=== PATIENT | female | born 1940 | race Caucasian/White ===

== ENCOUNTER 2023-11-15 10:34 | Emergency (ER) | payer MEDICARE, OTHER, SELFPAY ==
[2023-11-15] VITALS (10 sets, daily range): BP systolic 131–164; BP diastolic 42–111; BMI 19.1
[2023-11-15 11:16] LABS: % Basophils 0.8 % (0-2); % Eosinophils 2.9 % (0-6); % Immature Granulocytes 0.4 % (0-0.5); % Lymphocytes 29.1 % (20.5-51.1); % Monocytes 10.1 % (1.7-9.3); % Neutrophils 56.7 % (42.2-75.2); Absolute Eosinophils 0.1 10^3/uL (0-0.7); Absolute Lymphocytes 1.4 10^3/uL (1.2-3.4); Absolute Monocytes 0.5 10^3/uL (0.1-0.6); Absolute Neutrophils 2.7 10^3/uL (1.4-6.5); Hematocrit 32.7 % (37.0-47.0); Hemoglobin 10.8 g/dL (12.0-16.0); Mean Corpuscular Hgb 28.1 pg (27.0-31.0); Mean Corpuscular Volume 85.2 fL (81.0-99.0); Nucleated Red Blood Cells % 0 %; Platelet Count 183 10^3/uL (130-400); Red Blood Cell Count 3.84 10^6/uL (4.20-5.40); Red Cell Dist. Width 14.6 % (11.5-14.5); White Blood Cell Count 4.8 10^3/uL (4.8-10.8)
[2023-11-15 11:28] LABS: ALT (SGPT) 10 U/L (0-35); AST (SGOT) 21 U/L (14-36); Albumin 3.8 g/dl (3.5-5.0); Alkaline Phosphatase 103 U/L (38-126); Blood Urea Nitrogen 22 mg/dl (7-17); Calcium 9.7 mg/dl (8.4-10.2); Carbon Dioxide 23 mmol/L (22-30); Chloride 110 mmol/L (98-107); Estimated Creatinine Clearance 23 ml/min; Glucose 99 mg/dl (70-99); Potassium 4.5 mmol/L (3.5-5.1); Sodium 138 mmol/L (135-145); Total Bilirubin 0.5 mg/dl (0.2-1.3); Total Protein 6.4 g/dl (6.3-8.2); eGFR 34.36
[2023-11-15 12:14] LABS: Lipase 71 U/L (23-300)
[2023-11-15] MEDS: OMNIPAQUE 50 ML PO (12:19)
[2023-11-15] MEDS: NSS 250 IV (12:20)
[2023-11-15] MEDS: BENADRYL 50 MG IV (12:46)
[2023-11-15] MEDS: DECADRON 10 MG IV (12:46)
--- NOTE | 2023-11-15 12:47 | EDRN ---
the pt pressed the armando jeffery and this RN entered the pts room, the pt appeared to be anxious and hyperventilating, the pt stated to this RN, 'I think i am having a reaction to the oral contrast, i don't feel right i can't breathe', the pts Sp02 was
98% on 3L NC that the pt is normally on, this RN notified Ed Filippo CRANE and medications were administered per the providers orders, the pt continues to hyperventilate with stable vital signs and states that she, 'Feels awful', this RN will stay at
the pts bedside and will continue to monitor the pt closely
[2023-11-15] MEDS: ATIVAN 0.5 MG IV (12:51)
--- NOTE | 2023-11-15 12:53 | EDRN ---
Ativan 0.5mg IV administered to the pt per Ed Filippo CRANE's orders
--- NOTE | 2023-11-15 13:06 | EDRN ---
the pt still appears anxious however has stopped hyperventilating, no obvious signs of allergic reaction present, no itching, rash, etc. the pt is currently in NSR in the 70's, last BP 149/111 (124), th pt is currently still on 3L NC Sp02 99%, will
continue to monitor the pt closely
[2023-11-15 13:55] LABS: Urine Albumin Trace (Neg - Trace); Urine Bilirubin Negative (Negative); Urine Character Clear (Clear); Urine Color Yellow; Urine Glucose Negative (Negative); Urine Ketone Negative (Negative); Urine Leukocyte Trace (Negative); Urine Nitrite Negative (Negative); Urine Occult Blood Negative (Negative); Urine Urobilinogen Negative (Neg - 1+)
--- NOTE | 2023-11-15 14:37 | EDRN ---
the pt is resting in stretcher in the lowest position, side rails up x2, call jeffery within reach, HOB elevated, VS WNL, no c/o chest pain, no c/o SOB, the pt is in NSR in the 70's, currently still on 3L NC Sp02 98%, no s/s of distress, the pt is calm
and cooperative with staff, will continue to monitor the pt closely
[2023-11-15 14:38] LABS: Urine Bacteria Many (Negative); Urine Red Blood Cell 0-2 /HPF (0-2); Urine Squamous Cell 0-2 /LPF (Few)
--- NOTE | 2023-11-15 15:48 | ED.GENMED ---
History of Present Illness
General
Chief Complaint: Abdominal Pain
Source: patient and spouse
Exam Limitations: none
Time Seen by Provider: 11/15/23 10:42
Nursing documentation reviewed up to this point in time: agreed with
Travel History
Have you had any contact with someone who has COVID-19?: No
Do you have any symptoms of coronavirus? Fever > 100 degrees, chills, cough, shortness of breath, sore throat, loss of taste or smell, muscle aches, or headache?: No
History of Present Illness
History of Present Illness:
83-year-old female with past ministry of previous lung cancer hypertension hypothyroidism presenting to the emergency department today with concerns of lower abdominal pain that wraps to her flank throughout the morning today no associated nausea
vomiting diarrhea denies chest pain shortness of breath fevers
Past History
Past History
ED Past Medical History: Cancer (Lung) and Hypothyroidism
ED Past Surgical History: Appendectomy, Cholecystectomy, Gynecological and Other (Right lung resection)
Patient has exhibited threatening behavior?: No
PSI?: No
Social History
Tobacco: Former smoker
Alcohol: Occasional
Drug: None
Personal:
Living: with family
Employment: Retired
Family History
Family History: Other (Noncontributory)
Review of Systems
Review of Systems
Allergies reviewed?: Yes
All Other Systems: ROS reviewed and negative except as documented in HPI and ROS
Phy Exam
Physical Exam
Physical Exam:
GENERAL: Alert , in no apparent distress
EYE: pupils equal and reactive
NECK: Supple, no significant adenopathy.
ENT: o/p clr, mmm.
CARDIAC: Regular rate and rhythm .
LUNGS: Clear breath sounds bilaterally, no acute respiratory distress, no wheezes/rales/rhonchi
ABDOMEN: Mild abdominal pain throughout the lower abdomen in the right mid abdomen. No guarding no peritoneal signs
NEUROLOGICAL: Alert and oriented, no focal neuro deficits
SKIN: Warm and dry, skin intact.
MUSCULOSKELETAL: No edema, well perfused.
PSYCH: Normal and appropriate interaction.
Course
Orders/Labs/Results
Orders:
Orders
11/15/23 10:41
Electrocardiogram (*1) Urgent
Reason for Study: Abdominal Pain
EKG- Treatment ONCE
11/15/23 11:03
Complete Blood Count/With Diff Urgent
Comprehensive Metabolic Panel Urgent
Lipase Urgent
Urinalysis Reflex To Culture Urgent
Date Specimen was Collected: 11/15/23
Time Specimen was Collected: 11:00
Urine Microscopic Reflex Cult Urgent
Urine Culture Urgent
MASON Source: U
Specimen Description:
Date Specimen was Collected: 11/15/23
Time Specimen was Collected: 11:00
11/15/23 11:48
0.9% Sodium Chloride 250 ml [Nss] 250 ml IV BOLUS
11/15/23 12:02
CT Abd/pel (oral only)-DH Only Urgent
Comment:
Reason For Exam: iodine allergy doesnt want contrast
Iohexol [Omnipaque] See Protocol PO NOW STA
11/15/23 12:39
Dexamethasone Sod Phosphate [Decadron] 10 mg IV NOW STA
Diphenhydramine [Benadryl] 50 mg IV NOW STA
11/15/23 12:50
Lorazepam [Ativan] 0.5 mg IV NOW STA
Lorazepam [Ativan] 2 mg .ROUTE .STK-MED ONE
Abnormal Lab Results
11/15/23
11:03
RBC 3.84 L 10^6/uL
(4.20-5.40)
Hgb 10.8 L g/dL
(12.0-16.0)
Hct 32.7 L %
(37.0-47.0)
RDW 14.6 H %
(11.5-14.5)
Monocytes % 10.1 H %
(1.7-9.3)
Chloride 110 H mmol/L
(98-107)
BUN 22 H mg/dl
(7-17)
Creatinine 1.5 H mg/dL
(0.6-1.0)
Leukocyte Esterase Rfl Trace A
(Negative)
Urine Bacteria (Reflex) Many A
(Negative)
11/15/23 11:03
11/15/23 11:03
Vital Signs
Initial and Last Documented VS:
Initial Vital Signs
Temp Pulse Resp BP Pulse Ox
98.1 F 66 20 164/66 97
11/15/23 10:35 11/15/23 10:35 11/15/23 10:35 11/15/23 10:35 11/15/23 10:35
Last Documented Vital Signs
Temp Pulse Resp BP Pulse Ox
97.9 F 79 21 131/50 97
11/15/23 14:32 11/15/23 15:15 11/15/23 15:15 11/15/23 14:32 11/15/23 14:45
MDM/Problems Addressed
MDM/Problems Addressed:
83-year-old female presenting to the emergency department today with concerns of lower abdominal pain and right-sided abdominal pain throughout the day today somewhat improving prior to arrival she claims initial blood pressure elevated but
improving without specific treatment. Remainder vital signs normal. Labs unremarkable creatinine at baseline urinalysis no signs of infection CT scan without emergent findings patient generally well-appearing claims that symptoms are significant
improved throughout ER stay. Patient appears stable for outpatient follow-up with GI return precautions given.
*Critical Care Note
Total Time (30-74mins, 75-104mins- exclusive of procedures): Not Applicable
ED Attending Note
-
Portions of this chart may have been created with voice recognition software.� Occasional wrong word or��sound alike� substitutions may have occurred due to the inherent limitations of voice recognition software.
Discharge Plan
Departure
Patient Disposition: Home (Routine Discharge)
Date of Disposition: 11/15/23
Time of Disposition: 15:50
Patient with high blood pressure during this ER visit?: No
Condition: Good
Covid-19: Not Applicable
Discharge Problem:
Abdominal pain
Instructions: Abdominal Pain
Prescriptions:
No Action
ascorbic acid (vitamin C) [Vitamin C] 1,000 MG tablet
1,000 mg PO DAILY
albuterol sulfate [Proventil HFA] 90 MCG/PUFF HFA aerosol inhaler
1 puff inhalation R BIDPRN PRN (Reason: sob)
Caltrate 600 plus D 1 EACH tablet,chewable
1 ea PO DAILY
amlodipine [Norvasc] 5 mg Tablet
5 mg PO DAILY
zolpidem [Ambien] 5 mg Tablet
5 mg PO HSPRN PRN (Reason: sleeping)
Patient Comments:
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
trazodone 50 mg tablet
50 mg PO HS
levothyroxine [Synthroid] 25 mcg Tablet
25 mcg PO DAILY
Brilinta 90 mg Tablet
90 mg PO BID Qty: 60 11RF
atorvastatin 40 mg Tablet
40 mg PO QPM Qty: 30 11RF
aspirin 81 mg Tablet,Chewable
81 mg PO DAILY Qty: 30 11RF
metoprolol succinate 25 mg Tablet Extended Release 24 Hr
25 mg PO DAILY Qty: 30 11RF
Referrals:
Millie Virk DO [Family Provider] -
Kayy Gupta MD [Active] - Follow up in 5-7 days
Activity Restrictions/Additional Instructions:
You came to the emergency department today with concerns of recurrent abdominal pain. Here you to reassuring evaluation but you should follow-up closely with GI within 1 to 2 weeks. Return to the emergency department for any worsening, new or
concerning symptoms.
Interventions
Interventions:
*Risk Screen - Suicide Last Done: 11/15/23 11:10
*General Assessment Last Done: 11/15/23 11:10
*Neglect/Abuse Screening Last Done: 11/15/23 11:10
ED- Fall Risk Assessment Last Done: 11/15/23 11:10
*ED COVID-19 Vaccine History Last Done: 11/15/23 11:10
WC-Mxjwgy-Wsgeeqzjvz Assessment Last Done: 11/15/23 11:10
Discharge Date and Time
Print Language: INDONESIAN
== END 2023-11-15 16:04 | disposition home or self-care (01) ==
LOC: EMR 10:34
PROVIDERS: Physician Assistant; EMERGENCY PHYSICIAN Emergency Medicine; FAMILY PHYSICIAN Internal Medicine
DX: R10.30 Lower abdominal pain, unspecified (principal); I10 Essential (primary) hypertension; E03.9 Hypothyroidism, unspecified; Z87.891 Personal history of nicotine dependence
CPT/HCPCS: 99285; 96374; 96375 ×2; 74176; 80053; 81003; 81015; 83690; 85025; 87077; 87086; 87186; 93005

== ENCOUNTER 2024-02-20 10:24 | Emergency (ER) | payer MEDICARE, OTHER, SELFPAY ==
[2024-02-20 10:37] VITALS: BP 116/74
--- NOTE | 2024-02-20 11:37 | ED.GENMED ---
History of Present Illness
General
Chief Complaint: Back Pain
Time Seen by Provider: 02/20/24 11:24
History of Present Illness
History of Present Illness:
83-year-old female with history of COPD, lung cancer status post lobectomy, and chronic oxygen dependence presents to the emergency department for evaluation of bilateral flank pain and dysuria for the past week and a half. She was seen in urgent
care earlier this week and prescribed nitrofurantoin however her symptoms did not change. No fevers, chills, sweats, nausea, vomiting, or diarrhea. Pain is primarily in the mid back/kidney area but does occasionally radiate anteriorly.
Past History
Past History
ED Past Medical History: Cancer (Lung) and Hypothyroidism
ED Past Surgical History: Appendectomy, Cholecystectomy, Gynecological and Other (Right lung resection)
Patient has exhibited threatening behavior?: No
PSI?: No
Social History
Tobacco: Former smoker
Alcohol: Occasional
Drug: None
Personal:
Living: with family
Employment: Retired
Family History
Family History: Other (Noncontributory)
Review of Systems
Review of Systems
Allergies reviewed?: Yes
All Other Systems: ROS reviewed and negative except as documented in HPI and ROS
Phy Exam
Physical Exam
Physical Exam:
GEN: Well appearing, NAD, WDWN
Eyes: PERRLA, EOMs intact, no scleral icterus
HENT: NCAT, oral mucosa moist
Lungs: CTAB, no wheezes, rales, rhonchi, normal chest wall excursion
Cardiac: RRR, no M/R/G, no peripheral edema. Radial pulses 2+ bilat
Abdomen: Diffusely soft however tender to the lower abdomen diffusely, positive CVA tenderness bilaterally
Neuro: AO x 3
MSK: No gross deformity or ecchymosis. No edema. No digital clubbing
Skin: No rashes, petechiae. Normal color, no pallor or jaundice.
Psych: Calm, cooperative, proper hygiene
Course
Orders/Labs/Results
Orders:
Orders
02/20/24 11:36
Straight cath- Treatment ONCE
02/20/24 11:39
Complete Blood Count/With Diff Urgent
Comprehensive Metabolic Panel Urgent
02/20/24 11:50
Urinalysis Reflex To Culture Urgent
Date Specimen was Collected: 02/20/24
Time Specimen was Collected: 11:49
Urine Microscopic Reflex Cult Urgent
Urine Culture Urgent
MASON Source: U
Specimen Description:
Date Specimen was Collected: 02/20/24
Time Specimen was Collected: 11:49
02/20/24 12:26
CT Abd/pelvis Wo Iv Cont Urgent
Reason For Exam: bilat flank pain
Abnormal Lab Results
02/20/24 02/20/24
11:39 11:50
RBC 3.87 L 10^6/uL
(4.20-5.40)
Hgb 10.7 L g/dL
(12.0-16.0)
Hct 32.2 L %
(37.0-47.0)
RDW 15.0 H %
(11.5-14.5)
Absolute Monos (auto) 0.7 H 10^3/uL
(0.1-0.6)
Monocytes % 11.0 H %
(1.7-9.3)
Chloride 110 H mmol/L
(98-107)
BUN 26 H mg/dl
(7-17)
Creatinine 1.4 H mg/dL
(0.6-1.0)
Glucose 107 H mg/dl
(70-99)
Total Protein 6.1 L g/dl
(6.3-8.2)
Urine Nitrite (Reflex) Positive A
(Negative)
Urine Bilirubin 2+ A
(Negative)
Urine Urobilinogen 2+ A
(Neg - 1+)
Urine Bacteria (Reflex) Few A
(Negative)
02/20/24 11:39
02/20/24 11:39
Vital Signs
Initial and Last Documented VS:
Initial Vital Signs
Temp Pulse Resp BP Pulse Ox
98.0 F 59 16 116/74 96
02/20/24 10:37 02/20/24 10:37 02/20/24 10:37 02/20/24 10:37 02/20/24 10:37
Last Documented Vital Signs
Temp Pulse Resp BP Pulse Ox
98.0 F 71 23 134/64 97
02/20/24 10:37 02/20/24 13:30 02/20/24 13:30 02/20/24 13:28 02/20/24 13:30
MDM/Problems Addressed
MDM/Problems Addressed:
8-year-old female presents with bilateral back pain. She does have reproducible tenderness to the abdomen on exam thus prompting imaging to be obtained. Labs and imaging are grossly unremarkable. Urinalysis is not consistent with UTI however will
send for culture for completeness. Overall it is unclear what is causing patient's pain, may be an exacerbation of chronic pain versus musculoskeletal etiology. Will provide short course of analgesics and recommend PCP/pain f/u
*Critical Care Note
Total Time (30-74mins, 75-104mins- exclusive of procedures): Not Applicable
ED Attending Note
-
Portions of this chart may have been created with voice recognition software.� Occasional wrong word or��sound alike� substitutions may have occurred due to the inherent limitations of voice recognition software.
Discharge Plan
Departure
Patient Disposition: Home (Routine Discharge)
Date of Disposition: 02/20/24
Time of Disposition: 13:25
Patient with high blood pressure during this ER visit?: No
Discharge Problem:
Back pain
Instructions: Low Back Pain (DC)
Prescriptions:
New
hydrocodone-acetaminophen 5-325 mg tablet
1 tab PO Q8H PRN (Reason: Pain) Qty: 10 0RF
docusate sodium [Stool Softener] 100 mg capsule
100 mg PO BID PRN (Reason: constipation) Qty: 20 0RF
No Action
ascorbic acid (vitamin C) [Vitamin C] 1,000 MG tablet
1,000 mg PO DAILY
albuterol sulfate [Proventil HFA] 90 MCG/PUFF HFA aerosol inhaler
1 puff inhalation R BIDPRN PRN (Reason: sob)
Caltrate 600 plus D 1 EACH tablet,chewable
1 ea PO DAILY
amlodipine [Norvasc] 5 mg Tablet
5 mg PO DAILY
zolpidem [Ambien] 5 mg Tablet
5 mg PO HSPRN PRN (Reason: sleeping)
Patient Comments:
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
trazodone 50 mg tablet
50 mg PO HS
levothyroxine [Synthroid] 25 mcg Tablet
25 mcg PO DAILY
Brilinta 90 mg Tablet
90 mg PO BID Qty: 60 11RF
atorvastatin 40 mg Tablet
40 mg PO QPM Qty: 30 11RF
aspirin 81 mg Tablet,Chewable
81 mg PO DAILY Qty: 30 11RF
metoprolol succinate 25 mg Tablet Extended Release 24 Hr
25 mg PO DAILY Qty: 30 11RF
Referrals:
Millie Virk DO [Family Provider] -
Activity Restrictions/Additional Instructions:
The cause of your pain is unclear at this time. Your urinalysis will be sent for a culture and if positive you will receive a phone call in 2 to 3 days
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
If you are using opiate pain medications please consider using stool softeners twice a day as well to avoid constipation
Interventions
Interventions:
*Risk Screen - Suicide Last Done: 02/20/24 11:29
*General Assessment Last Done: 02/20/24 11:29
*Neglect/Abuse Screening Last Done: 02/20/24 11:29
ED- Fall Risk Assessment Last Done: 02/20/24 13:42
*ED COVID-19 Vaccine History Last Done: 02/20/24 11:29
*Nursing Disposition Last Done: 02/20/24 13:42
ED-Musculoskeletal Assessment Last Done: 02/20/24 11:29
Discharge Date and Time
Discharge Date/Time: 02/20/24 13:49
Print Language: EMIRATI
[2024-02-20 11:53] LABS: % Basophils 0.6 % (0-2); % Eosinophils 3.2 % (0-6); % Immature Granulocytes 0.3 % (0-0.5); % Lymphocytes 25.6 % (20.5-51.1); % Neutrophils 59.3 % (42.2-75.2); Absolute Eosinophils 0.2 10^3/uL (0-0.7); Absolute Lymphocytes 1.6 10^3/uL (1.2-3.4); Absolute Monocytes 0.7 10^3/uL (0.1-0.6); Absolute Neutrophils 3.7 10^3/uL (1.4-6.5); Hematocrit 32.2 % (37.0-47.0); Hemoglobin 10.7 g/dL (12.0-16.0); Mean Corp Hgb Conc. 33.2 g/dL (33.0-37.0); Mean Corpuscular Hgb 27.6 pg (27.0-31.0); Mean Corpuscular Volume 83.2 fL (81.0-99.0); Mean Platelet Volume 9.8 fL (7.4-10.4); Nucleated Red Blood Cells % 0 %; Platelet Count 169 10^3/uL (130-400); Red Blood Cell Count 3.87 10^6/uL (4.20-5.40); White Blood Cell Count 6.2 10^3/uL (4.8-10.8)
[2024-02-20 11:59] LABS: Urine Albumin Negative (Neg - Trace); Urine Bilirubin 2+ (Negative); Urine Character Clear (Clear); Urine Color Yellow; Urine Glucose Negative (Negative); Urine Ketone Negative (Negative); Urine Leukocyte Negative (Negative); Urine Nitrite Positive (Negative); Urine Occult Blood Negative (Negative); Urine Specific Gravity 1.015 (<1.030); Urine Urobilinogen 2+ (Neg - 1+)
[2024-02-20 12:05] LABS: ALT (SGPT) 14 U/L (0-35); AST (SGOT) 30 U/L (14-36); Albumin 3.7 g/dl (3.5-5.0); Alkaline Phosphatase 104 U/L (38-126); Blood Urea Nitrogen 26 mg/dl (7-17); Calcium 9.8 mg/dl (8.4-10.2); Carbon Dioxide 24 mmol/L (22-30); Chloride 110 mmol/L (98-107); Glucose 107 mg/dl (70-99); Potassium 4.2 mmol/L (3.5-5.1); Sodium 140 mmol/L (135-145); Total Bilirubin 0.7 mg/dl (0.2-1.3); Total Protein 6.1 g/dl (6.3-8.2); eGFR 37.33
[2024-02-20 12:14] VITALS: BP 126/58
[2024-02-20 12:20] LABS: Urine Bacteria Few (Negative); Urine Red Blood Cell 0-2 /HPF (0-2)
[2024-02-20 13:28] VITALS: BP 134/64
== END 2024-02-20 13:49 | disposition home or self-care (01) ==
LOC: EMR 10:24
PROVIDERS: Physician Assistant; EMERGENCY PHYSICIAN Emergency Medicine; FAMILY PHYSICIAN Internal Medicine
DX: M54.9 Dorsalgia, unspecified (principal); J44.9 Chronic obstructive pulmonary disease, unspecified; E03.9 Hypothyroidism, unspecified; Z87.891 Personal history of nicotine dependence; Z90.49 Acquired absence of other specified parts of digestive tract; Z99.81 Dependence on supplemental oxygen
CPT/HCPCS: 99284; 74176; 80053; 81003; 81015; 85025; 87086

== ENCOUNTER 2024-07-10 16:00 | Inpatient (IN) | payer MEDICARE, OTHER, SELFPAY ==
[2024-07-10] VITALS (17 sets, daily range): BP systolic 78–105; BP diastolic 46–86; BMI 23.7; BMI 24.7
--- NOTE | 2024-07-10 11:15 | ED.GENMED ---
History of Present Illness
<Fransico Barkley Jr., PA-C - Last Filed: 07/10/24 14:37>
General
Chief Complaint: Breathing Problem
Source: patient and spouse
Exam Limitations: none
Time Seen by Provider: 07/10/24 11:07
Nursing documentation reviewed up to this point in time: agreed with
History of Present Illness
History of Present Illness:
83-year-old female presenting to the emergency department today with concerns of shortness of breath worsening since last night. She chronically is on oxygen for COPD and right-sided lobectomy in the past. Typically uses 3 L during the day but has
needed more this morning. Has been treated for UTI over the past few days with Bactrim. She denies any specific chest pain fevers nausea vomiting.
Past History
<Fransico Barkley Jr., PA-C - Last Filed: 07/10/24 14:37>
Past History
ED Past Medical History: Cancer (Lung) and Hypothyroidism
ED Past Surgical History: Appendectomy, Cholecystectomy, Gynecological and Other (Right lung resection)
Patient has exhibited threatening behavior?: No
PSI?: No
Social History
Tobacco: Former smoker
Alcohol: Occasional
Drug: None
Personal:
Living: with family
Employment: Retired
Family History
Family History: Other (Noncontributory)
Review of Systems
<CHAS Aviles Jr. Last Filed: 07/10/24 14:37>
Review of Systems
Allergies reviewed?: Yes
All Other Systems: ROS reviewed and negative except as documented in HPI and ROS
Phy Exam
<CHAS Aviles Jr. Last Filed: 07/10/24 14:37>
Physical Exam
Physical Exam:
GENERAL: Alert , in no apparent distress
EYE: pupils equal and reactive
NECK: Supple, no significant adenopathy.
ENT: o/p clr, mmm.
CARDIAC: Regular rate and rhythm .
LUNGS: Clear breath sounds bilaterally, no acute respiratory distress, no wheezes/rales/rhonchi
ABDOMEN: Soft, without focal tenderness, no r/g, no cvat
NEUROLOGICAL: Alert and oriented, no focal neuro deficits
SKIN: Warm and dry, skin intact.
MUSCULOSKELETAL: No edema, well perfused.
PSYCH: Normal and appropriate interaction.
Scores
<Fransico Barkley Jr., PA-C - Last Filed: 07/10/24 14:37>
Heart Failure Risk
Heart Failure Risk Score: Not Applicable
Course
<Fransico Barkley Jr., PA-C - Last Filed: 07/10/24 14:37>
Orders/Labs/Results
Orders:
Orders
07/10/24 11:12
Electrocardiogram (*1) Stat
Reason for Study: Other
Other Reason for Exam: pneumonia
EKG- Treatment ONCE
CR Chest - 2 Views Urgent
Comment:
Reason For Exam: sob
07/10/24 11:20
Complete Blood Count/With Diff Urgent
Comprehensive Metabolic Panel Urgent
D-Dimer Urgent
Lactic Acid Q4H
Comment: CANCEL 2nd LACTIC ACID IF 1st LACTIC ACID IS LESS THAN 2
NT-proBNP Urgent
Troponin I Urgent
07/10/24 12:59
Straight cath- Treatment ONCE
07/10/24 13:01
CT Abd/pel Without Iv Or Oral Urgent
Comment:
Reason For Exam: flank pain with dysuria
07/10/24 13:02
CefTRIAXone [Rocephin] 1,000 mg IV NOW STA
Dexamethasone Sod Phosphate [Decadron] 6 mg IV NOW STA
Ipratropium/Albuterol Sulfate [Duoneb] 3 ml INH R NOW ONE
07/10/24 13:55
Urinalysis Reflex To Culture Urgent
Date Specimen was Collected: 07/10/24
Time Specimen was Collected: 13:51
Urine Microscopic Reflex Cult Urgent
07/10/24 13:58
Sterile Water [Sterile Water For Injection] 10 ml .ROUTE .STK-MED ONE
07/10/24 15:15
Lactic Acid Q4H
Comment: CANCEL 2nd LACTIC ACID IF 1st LACTIC ACID IS LESS THAN 2
Abnormal Lab Results
07/10/24 07/10/24
11:20 13:55
RBC 3.22 L 10^6/uL
(4.20-5.40)
Hgb 8.5 L g/dL
(12.0-16.0)
Hct 27.4 L %
(37.0-47.0)
MCH 26.4 L pg
(27.0-31.0)
MCHC 31.0 L g/dL
(33.0-37.0)
RDW 15.0 H %
(11.5-14.5)
D-Dimer 0.61 H ug/mlFEU
(0.00-0.50)
Chloride 109 H mmol/L
(98-107)
Carbon Dioxide 20 L mmol/L
(22-30)
BUN 19 H mg/dl
(7-17)
Creatinine 1.4 H mg/dL
(0.6-1.0)
Glucose 171 H mg/dl
(70-99)
Lactic Acid 2.5 H mmol/L
(0.7-2.0)
Total Protein 5.9 L g/dl
(6.3-8.2)
Urine Bacteria (Reflex) Few A
(Negative)
Urine Albumin (Reflex) 1+ A
(Neg - Trace)
07/10/24 11:20
07/10/24 11:20
Vital Signs
Initial and Last Documented VS:
Initial Vital Signs
Temp Pulse Resp BP Pulse Ox
98.1 F 78 26 105/76 83
07/10/24 10:59 07/10/24 10:59 07/10/24 10:59 07/10/24 10:59 07/10/24 10:59
Last Documented Vital Signs
Temp Pulse Resp BP Pulse Ox
98.1 F 67 26 102/63 98
07/10/24 10:59 07/10/24 13:15 07/10/24 13:15 07/10/24 13:00 07/10/24 13:15
<Riley Otero MD - Last Filed: 07/10/24 13:21>
Orders/Labs/Results
Orders:
Orders
07/10/24 11:12
Electrocardiogram (*1) Stat
Reason for Study: Other
Other Reason for Exam: pneumonia
EKG- Treatment ONCE
CR Chest - 2 Views Urgent
Comment:
Reason For Exam: sob
07/10/24 11:20
Complete Blood Count/With Diff Urgent
Comprehensive Metabolic Panel Urgent
D-Dimer Urgent
Lactic Acid Q4H
Comment: CANCEL 2nd LACTIC ACID IF 1st LACTIC ACID IS LESS THAN 2
NT-proBNP Urgent
Troponin I Urgent
07/10/24 12:59
Straight cath- Treatment ONCE
07/10/24 13:01
CT Abd/pel Without Iv Or Oral Urgent
Comment:
Reason For Exam: flank pain with dysuria
07/10/24 13:02
CefTRIAXone [Rocephin] 1,000 mg IV NOW STA
Dexamethasone Sod Phosphate [Decadron] 6 mg IV NOW STA
Ipratropium/Albuterol Sulfate [Duoneb] 3 ml INH R NOW ONE
07/10/24 13:55
Urinalysis Reflex To Culture Urgent
Date Specimen was Collected: 07/10/24
Time Specimen was Collected: 13:51
Urine Microscopic Reflex Cult Urgent
07/10/24 13:58
Sterile Water [Sterile Water For Injection] 10 ml .ROUTE .STK-MED ONE
07/10/24 15:15
Lactic Acid Q4H
Comment: CANCEL 2nd LACTIC ACID IF 1st LACTIC ACID IS LESS THAN 2
Abnormal Lab Results
07/10/24 07/10/24
11:20 13:55
RBC 3.22 L 10^6/uL
(4.20-5.40)
Hgb 8.5 L g/dL
(12.0-16.0)
Hct 27.4 L %
(37.0-47.0)
MCH 26.4 L pg
(27.0-31.0)
MCHC 31.0 L g/dL
(33.0-37.0)
RDW 15.0 H %
(11.5-14.5)
D-Dimer 0.61 H ug/mlFEU
(0.00-0.50)
Chloride 109 H mmol/L
(98-107)
Carbon Dioxide 20 L mmol/L
(22-30)
BUN 19 H mg/dl
(7-17)
Creatinine 1.4 H mg/dL
(0.6-1.0)
Glucose 171 H mg/dl
(70-99)
Lactic Acid 2.5 H mmol/L
(0.7-2.0)
Total Protein 5.9 L g/dl
(6.3-8.2)
Urine Bacteria (Reflex) Few A
(Negative)
Urine Albumin (Reflex) 1+ A
(Neg - Trace)
07/10/24 11:20
07/10/24 11:20
Vital Signs
Initial and Last Documented VS:
Initial Vital Signs
Temp Pulse Resp BP Pulse Ox
98.1 F 78 26 105/76 83
07/10/24 10:59 07/10/24 10:59 07/10/24 10:59 07/10/24 10:59 07/10/24 10:59
Last Documented Vital Signs
Temp Pulse Resp BP Pulse Ox
98.1 F 67 26 102/63 98
07/10/24 10:59 07/10/24 13:15 07/10/24 13:15 07/10/24 13:00 07/10/24 13:15
<Fransico Barkley Jr., PA-C - Last Filed: 07/10/24 14:37>
MDM/Problems Addressed
MDM/Problems Addressed:
83-year-old female presenting to the emergency department today with concerns of shortness of breath worsening since last night. Denies additional symptoms otherwise no fevers no recent illness no chest pain. Initial pulse ox on 3 L in the mid 80s
improving to the mid 90s with 6 L nasal cannula. Lungs are clear heart sounds are normal denies any chest pain. He does have some reproducible pain to her lower abdomen concerning a CT scan was obtained did not show any emergent findings does show
some pulmonary edema. Urinalysis was also obtained and did not show any evidence of current UTI. Otherwise hemoglobin of 8.5 baseline seems to be around 10 no bleeding guaiac negative on rectal examination. Decreasing level could be delusional.
Cardiology was consulted and saw the patient in the ER in reference to possible heart failure in the setting of pulmonary edema and elevated BNP. Plan to admit for further treatment and monitoring.
<Fransico Barkley Jr., PA-C - Last Filed: 07/10/24 14:37>
*Critical Care Note
Total Time (30-74mins, 75-104mins- exclusive of procedures): Not Applicable
ED Attending Note
<Fransico Barkley Jr., PA-C - Last Filed: 07/10/24 14:37>
-
Portions of this chart may have been created with voice recognition software.� Occasional wrong word or��sound alike� substitutions may have occurred due to the inherent limitations of voice recognition software.
<Riley Otero MD - Last Filed: 07/10/24 13:21>
ED Attending Note
Patient seen and examined by attending physician: Yes
ED Attending Note:
Patient with history of oxygen dependent COPD on 3 L oxygen via nasal cannula, presents to ED secondary to sudden onset of shortness of breath starting yesterday afternoon, worse with exertion. In addition, patient has noted dysuria over the past 2
days. Patient performed home test purchased at local pharmacy, which was positive for urinary tract infection. Spoke with primary care physician who started patient on Bactrim last night. Patient has taken 2 doses of Bactrim. In addition,
patient has had ongoing abdominal pain associated constipation. Has taken stool softener and laxative with mild improvement. Denies nausea, vomiting, or diarrhea. Denies coughing. Denies sore throat. Denies fever or chills. Denies chest pain.
Patient's past medical history is significant for 'small heart attack' last year, receiving 1 cardiac stent at [facility]. At that time, patient did experience chest pain and EKG confirmed heart attack. Denies recent travel or surgery.
Denies leg pain or swelling. Denies recent change in medications or diet.
Physical Exam
General: mild distress, not acutely ill. afebrile. weak and pale appearing.
Head: nc/at. eomi
Neck: supple. normal range of motion.
Heart: s1/s2 regular rate and rhythm, no murmur. equal radial pulses.
Lungs: mild respiratory distress. diminished breath sounds bilaterally
Abdomen: normal bowel sounds. mild diffuse tenderness to palpation.
Neuro: alert and oriented x 3. no focal neurological deficits
Skin: no rash
Psychiatric: well kept. interactive and cooperative
Extremities: no edema. no calf tenderness.
Patient's presenting hypoxia, likely multifactorial. Blood work does reveal anemia, of unknown etiology at this time, with heme negative stool, along with elevated proBNP level and chest x-ray consistent with potential vascular congestion. However
clinically patient does not appear to be volume overloaded. With potential UTI and hypotension noted in ED, clinical suspicion for potential infectious etiology driving patient's symptoms along with exacerbation of underlying COPD, may be the
likely culprit. However in light of patient's complicated presentation along with hypotension, will reach out to cardiology service for ED consultation and recommendation, in regards to patient's volume status.
Echocardiogram 2022 showed normal EF at that time.
Discharge Plan
Departure
Patient Disposition: Admit
Date of Disposition: 07/10/24
Time of Disposition: 14:37
Admit to: Telemetry
Admit to doctor: Htay
Presentation/result/management discussed w/ accepting MD/DO: Hospitalist
Patient with high blood pressure during this ER visit?: No
Condition: Good
Covid-19: Not Applicable
Discharge Problem:
Hypoxemia, Heart failure
Prescriptions:
No Action
ascorbic acid (vitamin C) [Vitamin C] 1,000 MG tablet
1,000 mg PO DAILY
albuterol sulfate [Proventil HFA] 90 MCG/PUFF HFA aerosol inhaler
1 puff inhalation R BIDPRN PRN (Reason: sob)
Caltrate 600 plus D 1 EACH tablet,chewable
1 ea PO DAILY
amlodipine [Norvasc] 5 mg Tablet
5 mg PO DAILY
zolpidem [Ambien] 5 mg Tablet
5 mg PO HSPRN PRN (Reason: sleeping)
Patient Comments:
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
trazodone 50 mg tablet
50 mg PO HS
levothyroxine [Synthroid] 25 mcg Tablet
25 mcg PO DAILY
Brilinta 90 mg Tablet
90 mg PO BID Qty: 60 11RF
atorvastatin 40 mg Tablet
40 mg PO QPM Qty: 30 11RF
aspirin 81 mg Tablet,Chewable
81 mg PO DAILY Qty: 30 11RF
metoprolol succinate 25 mg Tablet Extended Release 24 Hr
25 mg PO DAILY Qty: 30 11RF
hydrocodone-acetaminophen 5-325 mg tablet
1 tab PO Q8H PRN (Reason: Pain) Qty: 10 0RF
docusate sodium [Stool Softener] 100 mg capsule
100 mg PO BID PRN (Reason: constipation) Qty: 20 0RF
Referrals:
Millie Virk DO [Family Provider] -
Interventions
Interventions:
*Risk Screen - Suicide Last Done: 07/10/24 10:59
*General Assessment Last Done: 07/10/24 10:59
*Neglect/Abuse Screening Last Done: 07/10/24 10:59
ED- Cardiac Assessment Last Done: 07/10/24 11:50
ED- Pulmonary Assessment Last Done: 07/10/24 11:50
Discharge Date and Time
Print Language: SOLOM[place] ISLANDER
[2024-07-10 11:31] LABS: % Basophils 0.4 % (0-2); % Eosinophils 2.5 % (0-6); % Immature Granulocytes 0.2 % (0-0.5); % Monocytes 9.3 % (1.7-9.3); % Neutrophils 62.6 % (42.2-75.2); Absolute Eosinophils 0.1 10^3/uL (0-0.7); Absolute Lymphocytes 1.3 10^3/uL (1.2-3.4); Absolute Monocytes 0.5 10^3/uL (0.1-0.6); Absolute Neutrophils 3.2 10^3/uL (1.4-6.5); Hematocrit 27.4 % (37.0-47.0); Hemoglobin 8.5 g/dL (12.0-16.0); Mean Corpuscular Hgb 26.4 pg (27.0-31.0); Mean Corpuscular Volume 85.1 fL (81.0-99.0); Mean Platelet Volume 9.3 fL (7.4-10.4); Nucleated Red Blood Cells % 0 %; Platelet Count 166 10^3/uL (130-400); Red Blood Cell Count 3.22 10^6/uL (4.20-5.40); White Blood Cell Count 5.2 10^3/uL (4.8-10.8)
[2024-07-10 11:42] LABS: Lactic Acid 2.5 mmol/L (0.7-2.0)
[2024-07-10 11:50] LABS: ALT (SGPT) 10 U/L (0-35); AST (SGOT) 16 U/L (14-36); Albumin 3.5 g/dl (3.5-5.0); Alkaline Phosphatase 79 U/L (38-126); Blood Urea Nitrogen 19 mg/dl (7-17); Calcium 9.3 mg/dl (8.4-10.2); Carbon Dioxide 20 mmol/L (22-30); Chloride 109 mmol/L (98-107); Glucose 171 mg/dl (70-99); Potassium 4.1 mmol/L (3.5-5.1); Sodium 139 mmol/L (135-145); Total Bilirubin 0.4 mg/dl (0.2-1.3); Total Protein 5.9 g/dl (6.3-8.2); eGFR 37.33
[2024-07-10 11:52] LABS: D-Dimer 0.61 ug/mlFEU (0.00-0.50)
[2024-07-10 11:56] LABS: NT-proBNP 2790 pg/ml; Troponin I < 0.012 ng/ml
--- NOTE | 2024-07-10 13:53 | CON.CAR ---
Addendum entered and electronically signed by Lavon Morton MD 07/10/24 18:03:
I saw and examined the patient.
The Full Stack Web Developer's note was reviewed and I agree with the note.
Comment:
GEN: No distress, awake, Ox3
HEENT: supple, anicteric, mmm
LUNGS: scatt rhonchi
CV: Reg, S1/S2, 07/24 syst LSB, no gallop
ABD: soft, BS+, NT/ND
EXT: +1 edema
NEURO: Gross non-focal
SKIN: No rash
Plan:
She has PMH of CAD/NSTEMI, s/p RCA/LCx MING 08/10, HTN, COPD, hypothyroid, PAD, presents with progressive shortness of breath over past several days. She also has recent UTI treated with Bactrim, she then had progressive hypoxemia with pulse ox in the
80s on 3L oxygen. pro-BNP 2790. CT scan with bilateral pleural effusions with pulm edema and possible vascular congestion/pneumonitis. Pt very poor historian. + mild orthopnea/PND.
Rec treatment for both COPD and acute HF with preserved LVEF.
Treat with steroids/nebulizers/Antibiotics
Would start Edecrin 25mg daily. and follow. ?sulfa allergy. Creat at 1.4.
will check repeat Echo.
Cont Toprol, and Plavix. Hold Norvasc with hypotension.
Cont Med Rx for CAD/PAD.
Original Note:
Consultation
Consultation Request
Date/Time Consultation Requested: 07/10/2024
Date/Time Consultation Performed: 07/10/2024
Requesting Provider: Fransico Barkley PA-C
Performing Provider: Rosanna Maravilla PA-C for Dr. Morton
Reason for Consultation: Shortness of breath
Medical History
-
Chief Complaint: chest and arm pain
History of Present Illness:
Lelo has a history of lung cancer status post lobectomy followed at [facility] 2013 in remission, COPD on chronic supplemental oxygen, hypothyroidism, CKD, htn and CAD s/p NSTEMI w/ RCA MING, mid circumflex MING July 2022, PAD with left
subclavian stenosis, who presents to emergency department 07/10/2024 with worsening shortness of breath with increased supplemental oxygen demand. Patient also notes UTI symptoms and was found to have UTI on home test purchased at local pharmacy .
She has received 2 doses of Bactrim. Patient was found to be hypoxic in emergency department with pulse oximetry in the mid 80s on 3 L. Oxygenation improved on 6 L via nasal cannula to the mid 90s. Hemoglobin found to be 8.5 in emergency
department, D-dimer 0.61. BUN 19 creatinine 1.4, proBNP 2790. Small right pleural effusion noted with probable atelectasis. Bibasilar interstitial thickening which may represent pulmonary vascular congestion and or pneumonitis. CT of
abdomen/pelvis shows small bilateral pleural effusions with suspected pulmonary edema. There is lumbar compression fraction likely acute/subacute. EKG showed sinus rhythm without ischemic changes. Troponin was negative. UA pending. Initial
blood pressure found to be mildly hypotensive with systolic readings in the low to mid 90s/60's. Cardiology being asked to see patient for shortness of breath concern for heart failure.
Patient is poor historian.
PMH:
CAD
NSTEMI July 2022
s/p 3.5 mm Xience to prox RCA, 3.25 mm Xience to mid Circ into OM-2 and residual OM-1 stenosis 07/27/22
History of PAD
History of left subclavian stenosis
Left carotid bruit
History of lung cancer status post lobectomy/chemoradiation 2013 followed by [facility]
Hypertension
COPD/prior tobacco dependence
CKD 3b, baseline Cre 1.4-1.6
History of multiple allergies including IV dye allergy [no history of intubation]
Hypothyroidism
Past Medical History
Past Medical History: HTN, Hypothyroidism and Other (Lung cancer status post lobectomy and treated at [facility] and felt to be in remission)
Past Surgical History: Appendectomy, Cholecystectomy, Gynecological (Status post hysterectomy) and Other (Status post lobectomy, eye surgery)
Social History
Tobacco: Former Smoker (Stopped 25 years ago)
Alcohol: Occasional
Drug: None
Personal:
Living: With Family
Employment: Retired
Family History
Family History: Other (There is no family history of premature coronary artery disease)
Allergies / Home Medications
Allergy/AdvReac Type Severity Reaction Status Date / Time
shellfish derived Allergy Severe Tongue Verified 07/10/24 10:59
Swelling
iodine Allergy Unknown Unknown Verified 07/10/24 10:59
Penicillins Allergy Unknown Unknown Verified 07/10/24 10:59
acetaminophen Allergy Unknown Verified 07/10/24 10:59
[From Tylenol-Codeine]
codeine Allergy Unknown Verified 07/10/24 10:59
codeine phosphate Allergy Unknown Verified 07/10/24 10:59
[From Tylenol-Codeine]
diclofenac sodium Allergy Unknown Verified 07/10/24 10:59
[From Arthrotec]
furosemide [From Lasix] Allergy Unknown Verified 07/10/24 10:59
hydrocodone bitartrate Allergy Unknown Verified 07/10/24 10:59
[From Vicodin]
lansoprazole [From Prevacid] Allergy Unknown Verified 07/10/24 10:59
misoprostol [From Arthrotec] Allergy Unknown Verified 07/10/24 10:59
oxycodone [From OxyContin] Allergy Nausea / Verified 07/10/24 10:59
Vomiting
oxycodone HCl [From Percocet] Allergy Unknown Verified 07/10/24 10:59
tiotropium bromide Allergy Unknown Verified 07/10/24 10:59
[From Spiriva with
HandiHaler]
tramadol Allergy Unknown Verified 07/10/24 10:59
tramadol HCl [From Ultracet] Allergy Unknown Verified 07/10/24 10:59
�Medication �Instructions �Recorded �Confirmed �Type
albuterol sulfate 90 mcg/actuation 1 puff inhalation R BIDPRN PRN sob 02/28/18 11/15/23 History
aerosol inhaler (Proventil HFA)
ascorbic acid (vitamin C) 1,000 mg 1,000 mg PO DAILY Supplement 02/28/18 11/15/23 History
tablet (Vitamin C)
calcium 600 mg (as carbonate)-vit 1 ea PO DAILY Supplement 02/28/18 11/15/23 History
D3 20 mcg (800 unit) chewable
tablet (Caltrate plus D)
amlodipine 5 mg tablet (Norvasc) 5 mg PO DAILY Blood pressure 07/25/22 11/15/23 History
levothyroxine 25 mcg tablet 25 mcg PO DAILY Thyroid 07/25/22 11/15/23 History
(Synthroid)
trazodone 50 mg tablet 50 mg PO HS Sleep 07/25/22 11/15/23 History
zolpidem 5 mg tablet (Ambien) 5 mg PO HSPRN PRN sleeping 07/25/22 11/15/23 History
aspirin 81 mg chewable tablet 81 mg PO DAILY heart 07/29/22 11/15/23 Rx
disease/condition #30 tabs
atorvastatin 40 mg tablet 40 mg PO QPM High cholesterol #30 07/29/22 11/15/23 Rx
tabs
metoprolol succinate 25 mg 25 mg PO DAILY Heart 07/29/22 11/15/23 Rx
tablet,extended release 24 hr disease/condition #30 tabs
ticagrelor 90 mg tablet (Brilinta) 90 mg PO BID heart 07/29/22 11/15/23 Rx
disease/condition #60 tabs
docusate sodium 100 mg capsule 100 mg PO BID PRN constipation #20 02/20/24 Rx
(Stool Softener) caps
hydrocodone 5 mg-acetaminophen 325 1 tab PO Q8H PRN Pain #10 tabs 02/20/24 Rx
mg tablet
Review of Systems
-
History Source: Patient
All other systems: Negative unless noted
Physical Exam
Vital Signs
Temp Pulse Resp BP Pulse Ox
98.1 F 67 26 102/63 98
07/10/24 10:59 07/10/24 13:15 07/10/24 13:15 07/10/24 13:00 07/10/24 13:15
GEN: No distress, awake, Ox3, lying in bed appears SOB getting nebulizer
HEENT: supple, anicteric, mmm
LUNGS: Very diminished BS bilateral with diffuse wheezing bilaterally, getting nebulizer
CV: Reg, S1/S2, 1/6 syst murmur, no rub or gallop
ABD: soft, BS+, NT/ND
EXT: No edema, clubbing or cyanosis
NEURO: Gross non-focal
SKIN: No rash, warm, dry, pallor
Lab Results
07/10/24 11:20
07/10/24 11:20
Troponin I < 0.012 ng/ml 07/10/24 11:20
Cip-Q-Epkyuilusye Pept 2790 pg/ml 07/10/24 11:20
Impression / Plan
-
Primary care physician: Dr. Elie Vuong
Density Control Puncher: Previously followed with Dr. Clint Pinon of [facility] last seen in 04/2023; more recently saw a claims analyst in [place] but does not recall his name.
Impression:
Presents 07/10/2024 with progressively worsening shortness of breath, UTI symptoms, abdominal discomfort and constipation
Hypoxia requiring higher dose supplemental oxygen
Acute heart failure with preserved ejection fraction, proBNP 2790
Hypotension
UTI symptoms
CAD
NSTEMI July 2022
s/p 3.5 mmx 22 Xience to prox RCA, 3.25 mm x 18 mm Xience to mid Circ into OM-2 and residual OM-1 stenosis 07/27/22
History of PAD
History of left subclavian stenosis
Left carotid bruit
History of lung cancer status post lobectomy/chemoradiation 2013 followed by [facility]
Hypertension
COPD/prior tobacco dependence
CKD 3b, baseline Cre 1.4-1.6
History of multiple allergies including IV dye allergy [no history of intubation]
Hypothyroidism
Echo 07/27/22: EF 60-65%, mildly dilated LA, mild MR, mild aortic regurgitation, mild to mod TR
Cardiac catheterization 07/27/2022: LM: Normal. LAD: LI: Left circumflex: 90% s/p 3.25 mm Xience to mid Circ into OM. RCA: Tandem 50% and 80% proximal RCA stenosis, status post 3.5 x 22 mm Xience MING
Plan:
Presents 05/10/2024 with worsening shortness of breath with increased supplemental oxygen demand, UTI symptoms, abdominal discomfort and constipation
Acute hypoxic respiratory insufficiency likely multifactorial secondary to COPD exacerbation with prior history of lung cancer and possible heart failure with preserved ejection fraction. By exam SOB seems to be more from COPD.
Patient was given IV dexamethasone and nebulizer for COPD exacerbation
Concern for heart failure with preserved ejection fraction, proBNP 2790 and chest x-ray/CT concerning for pulmonary edema. Although by exam seem more like COPD exacerbation. Once blood pressure improve concern gentle diuresis. Lasix listed as
allergy unknown, patient does not recall if and what allergy she has to Lasix.
Concern for UTI. UA pending. Patient was given Rocephin IV in emergency department
History of coronary artery disease. Had PCI here in July 2022. Followed with Dr. Pinon (Outpatient cardiology records have been requested. She also mentions seeing another claims analyst in [place] but does not recall the name. Per
patient takes Plavix but no ASA. Also on Toprol, Amlodipine. Unclear if she is on a statin, although she was discharged home on it in 2022.
Anemia, Hgb 8.5. On Plavix. Heme test stool.
Talked w/ and LVM for daughter Eli to help clarify meds and most recent claims analyst.
HPI 07/10/2024:
Lelo has a history of lung cancer status post lobectomy followed at [facility] 2013 in remission, COPD on chronic supplemental oxygen, hypothyroidism, CKD, htn and CAD s/p NSTEMI w/ RCA MING, mid circumflex MING July 2022, PAD with left
subclavian stenosis, who presents to emergency department 07/10/2024 with worsening shortness of breath with increased supplemental oxygen demand. Patient also notes UTI symptoms and was found to have UTI on home test purchased at local pharmacy .
She has received 2 doses of Bactrim. Patient was found to be hypoxic in emergency department with pulse oximetry in the mid 80s on 3 L. Oxygenation improved on 6 L via nasal cannula to the mid 90s. Hemoglobin found to be 8.5 in emergency
department, D-dimer 0.61. BUN 19 creatinine 1.4, proBNP 2790. Small right pleural effusion noted with probable atelectasis. Bibasilar interstitial thickening which may represent pulmonary vascular congestion and or pneumonitis. CT of
abdomen/pelvis shows small bilateral pleural effusions with suspected pulmonary edema. There is lumbar compression fraction likely acute/subacute. EKG showed sinus rhythm without ischemic changes. Troponin was negative. UA pending. Initial
blood pressure found to be mildly hypotensive with systolic readings in the low to mid 90s/60's. Cardiology being asked to see patient for shortness of breath concern for heart failure.
Data Reviewed
-
EKG: Report Reviewed by me, Discussed with Physician and Discussed with Patient
Radiology: Report Reviewed by me, Discussed with Physician and Discussed with Patient
CT Scan: Report Reviewed by me, Discussed with Physician and Discussed with Patient
Labs: Labs Reviewed by me, Discussed with Physician and Discussed with Patient
Old Records: Reviewed
[2024-07-10] MEDS: DUONEB 3 ML INH ×2 (14:00→19:50)
[2024-07-10] MEDS: DECADRON 6 MG IV (14:00)
[2024-07-10] MEDS: ROCEPHIN 1000 MG IV (14:00)
[2024-07-10 14:10] LABS: Urine Albumin 1+ (Neg - Trace); Urine Bilirubin Negative (Negative); Urine Character Clear (Clear); Urine Color Yellow; Urine Glucose Negative (Negative); Urine Ketone Negative (Negative); Urine Leukocyte Negative (Negative); Urine Nitrite Negative (Negative); Urine Occult Blood Negative (Negative); Urine Specific Gravity 1.015 (<1.030); Urine Urobilinogen Negative (Neg - 1+)
[2024-07-10 14:25] LABS: Urine Bacteria Few (Negative); Urine Red Blood Cell 0-2 /HPF (0-2); Urine Squamous Cell 0-2 /LPF (Few)
--- NOTE | 2024-07-10 15:17 | HPS.HSE ---
Family Physician
-
Family Physician: Millie Virk
Chief Complaint
-
Shortness of breath, hypoxia
History of Present Illness
83-year-old female complaining of shortness of breath worsening since last night. She is on chronic 3 L nasal cannula oxygen during the day but was increasing it to 6 L today. She does have history of COPD with right sided lobectomy in the past.
She also complained of urinary symptoms and had a hqod-jds-gfkzrvy urine test that was positive. She was placed on Bactrim by her PCP. She complains of a runny nose with postnasal drip for the past several days but denies sore throat, headache,
blurred vision, chest pain, palpitations, cough, abdominal pain, nausea, vomiting, diarrhea. She lives at home with her .
She has past medical history of CAD with RCA stent July [address] [facility], hypertension, left subclavian stenosis, COPD, chronic hypoxic respiratory failure 3 L nasal cannula dependent at bedtime, right lobectomy secondary
to lung cancer/hypothyroidism, chronic ambulatory dysfunction uses walker or cane at baseline
Medical History
Past Medical History
Past Medical History: Reports Other
Additional Past Medical History:
CAD with RCA stent July [address] Pin[address] [facility]
hypertension, left subclavian stenosis
COPD
Former smoker three-quarter pack per year stopped 24 years ago
chronic hypoxic respiratory failure 3 L nasal cannula dependent at bedtime,
right lobectomy secondary to lung cancer
hypothyroidism
chronic ambulatory dysfunction uses walker or cane at baseline
Past Surgical History: Reports Other
Additional Past Surgical History:
CAD with RCA stent July [address] [facility]
Social History
Tobacco: Former Smoker (Three-quarter pack per year stopped 24 years ago age 59)
Alcohol: None
Drug: None
Personal:
Living: With Family ()
Employment: Retired
Family History
Family History: Unable to Obtain
Allergies / Home Medications
Allergies reflects when Allergies were last updated in [facility].
Home Medications with original date entered in [facility]
Allergy/Medication List:
Allergies
Allergy/AdvReac Type Severity Reaction Status Date / Time
shellfish derived Allergy Severe Tongue Verified 07/10/24 10:59
Swelling
iodine Allergy Unknown Unknown Verified 07/10/24 10:59
Penicillins Allergy Unknown Unknown Verified 07/10/24 10:59
acetaminophen Allergy Unknown Verified 07/10/24 10:59
[From Tylenol-Codeine]
codeine Allergy Unknown Verified 07/10/24 10:59
codeine phosphate Allergy Unknown Verified 07/10/24 10:59
[From Tylenol-Codeine]
diclofenac sodium Allergy Unknown Verified 07/10/24 10:59
[From Arthrotec]
furosemide [From Lasix] Allergy Unknown Verified 07/10/24 10:59
hydrocodone bitartrate Allergy Unknown Verified 07/10/24 10:59
[From Vicodin]
lansoprazole [From Prevacid] Allergy Unknown Verified 07/10/24 10:59
misoprostol [From Arthrotec] Allergy Unknown Verified 07/10/24 10:59
oxycodone [From OxyContin] Allergy Nausea / Verified 07/10/24 10:59
Vomiting
oxycodone HCl [From Percocet] Allergy Unknown Verified 07/10/24 10:59
tiotropium bromide Allergy Unknown Verified 07/10/24 10:59
[From Spiriva with
HandiHaler]
tramadol Allergy Unknown Verified 07/10/24 10:59
tramadol HCl [From Ultracet] Allergy Unknown Verified 07/10/24 10:59
Home Medications
ascorbic acid (vitamin C) 1,000 mg tablet (Vitamin C) 1,000 mg PO DAILY Supplement 02/28/18
calcium 600 mg (as carbonate)-vit D3 20 mcg (800 unit) chewable tablet (Caltrate plus D) 1 ea PO DAILY Supplement 02/28/18
amlodipine 5 mg tablet (Norvasc) 5 mg PO DAILY Blood pressure 07/25/22
levothyroxine 25 mcg tablet (Synthroid) 25 mcg PO DAILY Thyroid 07/25/22
zolpidem 5 mg tablet (Ambien) 5 mg PO HSPRN PRN sleeping 07/25/22
aspirin 81 mg chewable tablet 81 mg PO DAILY heart disease/condition #30 tabs 07/29/22
atorvastatin 40 mg tablet 40 mg PO QPM High cholesterol #30 tabs 07/29/22
metoprolol succinate 25 mg tablet,extended release 24 hr 25 mg PO DAILY Heart disease/condition #30 tabs 07/29/22
Review of Systems
-
History Source: Patient
A 12 point ROS was completed and negative except as noted: Yes
Constitutional: Denies Fever, Weight Gain, Weight Loss, Fatigue or Chills
EENT: Reports Runny Nose (With postnasal drip); Denies Sore Throat
Respiratory: Reports Trouble Breathing (Shortness of breath); Denies Cough
Cardiac: Denies Chest Pain, Diaphoresis, Palpitations or Syncope
Abdomen/GI: Denies Abdominal Pain, Nausea, Vomiting, Diarrhea, Constipated, Bloody Stools or Black Stools
: Reports Dysuria and Frequency; Denies Flank Pain, Incontinence, Difficulty Voiding, Urgency, Bleeding or Dark Urine
Musculoskeletal: Denies Joint Pain
Skin: Denies Itching or Rash
Neurological: Denies Dizzy, Headache or Weakness
Endocrine: Reports No Symptoms
Hematologic/Lymphatic: Reports No Symptoms
Psych: Reports Calm
Physical Exam
Vital Signs
Vital Signs
Temp Pulse Resp BP Pulse Ox
98.1 F 67 26 102/63 98
07/10/24 10:59 07/10/24 13:15 07/10/24 13:15 07/10/24 13:00 07/10/24 13:15
Physical Exam
General: Comfortable and Conversant; No Pain, Fever or Chills
HEENT: NormoCephalic, Anicteric, Moist mucous membranes, PERRLA, [place] Conjunctivae, No Ptosis, Neck Nontender and Oxygen (4 L nasal cannula)
Respiratory: Clear; No Wheezes, Rales or Rhonchi
Cardiac: S1/S2, Regular Rhythm and JVD; No Murmur, Rub, Gallop or Peripheral Edema
Breast: Deferred by me
GI: Soft, Non Tender, Non Distended, Normal Bowel Sounds and No Hepatosplenomegaly
Rectal: Deferred by Provider
Genito-urinary: Deferred by me
Musculoskeletal: No Clubbing, No Cyanosis and No Edema
Skin: Warm and Dry; No Rash
Neuro: AO x 3 (Slight poor historian regarding past medical history and historical events of why she is here), Cranial Nerves Intact and No Sensory Deficits; No Slurred Speech, Facial Droop, Tremors or Sedated
Psych: Calm
Laboratory Results
-
07/10/24 11:20
07/10/24 11:20
Laboratory Results
Lactic Acid 2.5 mmol/L (0.7-2.0) H 07/10/24 11:20
Total Bilirubin 0.4 mg/dl (0.2-1.3) 07/10/24 11:20
AST 16 U/L (14-36) 07/10/24 11:20
ALT 10 U/L (0-35) 07/10/24 11:20
Alkaline Phosphatase 79 U/L (38-126) 07/10/24 11:20
Troponin I < 0.012 ng/ml 07/10/24 11:20
Impression/Plan
-
Impression/plan:
Admit to telemetry
# Acute on chronic hypoxic resp insufficiency secondary to COPD 3 L nasal cannula dependent
#Acute on chronic COPD with exacerbation
#Hx right sided lobectomy
83% 3 L nasal cannula, 96% 4 L nasal cannula
-Decadron 6 mg given in ER
-Continue DuoNebs scheduled and as needed
-Check sputum culture, lactic acid
-Check COVID, influenza
-IV Rocephin 1 g given in the ER
-Follow CBC, CMP
-PT/OT/case management eval
CXR: Small right pleural effusion with associated probable atelectasis bibasilar interstitial thickening may reflect pulmonary vascular congestion and or pneumonitis
#Acute hypotension unclear etiology/HTN�benign
BP 83/50 > BP 75/40
Will give IV 250 cc an hour x 1 L bolus total, reassess blood pressure
-Hold metoprolol succinate 25 mg daily, amlodipine 5 mg daily
#Hx left subclavian stenosis
#L3 compression fracture likely acute/subacute
Patient believes possibly was due to using laundry yesterday
-Tylenol, Lidoderm patch
-Consult PT/OT
CT abdomen pelvis without IV or oral contrast:
1. Moderate L3 compression fracture likely acute/subacute otherwise no abnormality identified in the abdomen or pelvis
2. Small bilateral pleural effusions with suspected pulmonary edema
#Recent UTI symptoms with home test positive at local pharmacy
-Patient started on Bactrim by PCP which she has taken 2 doses of
-Will hold further Bactrim as urinalysis is negative here in ER
? Underlying cognitive impairment no formal diagnosis
#CAD/RCA stent
July 2022 NSTEMI
s/p 3.5 mm Xience to prox RCA, 3.25 mm Xience to mid Circ into OM-2 and residual OM-1 stenosis 07/27/22History of PAD
Patient follows with Dr. Kathrin Self cardiology at [facility] cardi[facility] obtaining records from Dr. Kathrin Self cardiology
-Continue aspirin 81 mg daily
#Chronic anemia�normocytic
Hgb 8.5 <10.7 on 02/20/2024(baseline appears 10.2-11)
MCV 87.7
-Check iron panel, B12, folate
#CKD 3B
-Creat 1.4 appears baseline for patient
#Former smoker
Patient believes three-quarter pack per year stopped age 59 which was 24 years ago
#Chronic ambulatory dysfunction
Uses walker or wheelchair at baseline
DVT prophylaxis
Subcu heparin
Full code
--- NOTE | 2024-07-10 15:49 | W.PN.UPDATE ---
Update Note
Progress Note Update
This note serves as an addendum to the H&P by compensation programs manager ROGER Matilda BRYAN
HPI
83F HX s/p Lobectomy for CA Lung in remission, COPD, home O2 , hypothyroidism, CKD, HTN and CAD s/p NSTEMI w/ RCA MING, mid circumflex MING July 2022, PAD with left subclavian stenosis seen at ER :
- shortness of breath with increased supplemental O2 demand
- At ER POx in mid 80s on 3 L. Then POx improved on 6 L via NC O2 to the mid 90s.
Of note; UTI symptoms wit POS UTI per home test- received 2 doses of Bactrim. UA is clean in ER
PHX; see as above
VSS
07/10/24
11:57 07/10/24
12:00 07/10/24
12:45
Pulse 61
Blood pressure 98/66 92/64 102.63
data
02/20/24 07/10/24
11:39 11:20
WBC 5.2
Hgb 10.7 L 8.5 L
D-Dimer 0.61 H
Chloride 109 H
Carbon Dioxide 20 L
BUN 19 H
Creatinine 1.4 H 1.4 H
eGFR 37.33 37.33
Glucose 171 H
Lactic Acid 2.5 H
Troponin I < 0.012
[id number]-[id number] Pept 2790
PE
Gen: NAD
HEENT:
Neck: no JVD, , no bruits bilaterally.
Lungs: Clear to auscultation bilaterally, no wheeze, rhonchi, rubs bilaterally,
Cor: RRR, no murmurs, No S3, S4,
MS: No edema
07/10 CXR
- Small right pleural effusion with associated probable atelectasis.
- Bibasilar interstitial thickening may reflect pulmonary vascular congestion and/or pneumonitis
07/10/24 CT Abd/pel Without Iv Or Oral
1. Moderate L3 compression fracture, likely acute/subacute.
Otherwise no significant acute abnormality identified in the abdomen or pelvis, within the limits of unenhanced CT
2. Small bilateral pleural effusions with suspected pulmonary edema.
07/25/22 Cardiac Catheterization
1. Successful stenting of the mid circumflex to OM2 jailing the origin of smaller OM1.
The mid circumflex - OM2 was stented with a 3.25 x 18 mm Xience stent that was post dilated with a 3.25 mm NC balloon with a nice angiographic result.
A residual 90% ostial OM1 stenosis persisted with JAILYN 3 flow distally and no additional treatment was performed.
2. Successful stenting of proximal RCA with a 3.5 x 23 mm Xience stent that was post dilated to high pressures with a 3.5 mm NC balloon
RECOMMENDATIONS
1. Uninterrupted dual antiplatelet therapy
2. Guideline directed medical therapy for risk modification
07/27/22 TTE
Left ventricular ejection fraction is 60-65%.
Normal diastolic function.
Mildly dilated left atrium.
Mild mitral regurgitation.
Mild aortic regurgitation.
Mild to moderate tricuspid regurgitation.
Mild pulmonic regurgitation.
NO PRIOR hospitalist admission:
ASSESSMENT & PLAN
Pending Rx reconciliation
Acute on chr hypoxic RF likely multifactorial secondary to COPD flare
- possible element of Acute HF of chr HFpEF
- By exam SOB seems to be more from COPD.
- IV dexamethasone
- Nebs
- check PCT hold off ABx for now
Possible element of Acute HF ( ???) with underlying chr HFpEF likely due to COPD flare
Borderline hypotension
- proBNP 2790
- CXR/CT concerning for pulmonary edema.
- Once blood pressure improve concern gentle diuresis.
- DCA card consulted
HX CAD s/p NSTEMI w/ RCA MING, mid circumflex MING July 2022,
- on ASA and Brilinta
UTI symptoms wit POS UTI per home test- received 2 doses of Bactrim. UA is clean in ER
HX CKD3b/4 with baseline eGFR low 30s
- f/u Cr
DVT Px: SQH
Code: Full
I TLM
[2024-07-10 15:53] LABS: Iron 34 ug/dl (37-170)
[2024-07-10 16:09] LABS: Percent Saturation 8 % (20-50); Total Iron Binding Capacity 383 ug/dl (265-497)
[2024-07-10 16:24] LABS: COVID-19 Antigen Negative (Negative)
[2024-07-10 16:29] LABS: Lactic Acid 1.9 mmol/L (0.7-2.0)
[2024-07-10 16:36] LABS: Ferritin 16.5 ng/ml (11.1-264.0)
[2024-07-10] MEDS: NSS 1000 IV (16:50)
[2024-07-10] MEDS: LIDOCAINE 4% PATCH 1 PATCH TOPICAL (16:50)
[2024-07-10 17:08] LABS: Folate 8.3 ng/ml (2.76-20); Vitamin B12 > 1000 pg/ml (239-931)
[2024-07-10] MEDS: DUONEB INH (18:04)
--- NOTE | 2024-07-10 18:21 | EDRN ---
Patient taken to room 436-1 on stretcher by political science professor on monitor on O2 6LNC.
[2024-07-10] MEDS: LIPITOR 40 MG PO (20:00)
[2024-07-10] MEDS: HEPARIN SC (20:13)
[2024-07-10] MEDS: MELATONIN 5 MG PO (22:45)
[2024-07-10] MEDS: ProAmatine 5 MG PO (23:21)
--- NOTE | 2024-07-10 23:30 | PTCARENOTE ---
Pt's ANODE CREW SUPERVISOR in left upper arm is 83/46, HR 90. Pt is asymptomatic apart from anxiety and shortness of breath. SYLVESTER Jeffery notified and ordered 1x midodrine 5mg. Repeat BP after midodrine is 80/51, HR 88. CBC, BMP ordered. Pt without void during shift;
bladder scan order placed by SYLVESTER Jeffery. Pt's bladder scan at 0100 is 254.
Repeat automatic BP at 0300 is 77/50 in left upper arm. Manual BP completed in right upper arm is 122/54. Pt remains asymptomatic. SYLVESTER Jeffery notified, no new orders at this time.
--- NOTE | 2024-07-10 23:30 | PTCARENOTE ---
2330: Pt's BP in left upper arm is 83/46, HR 90. Pt is asymptomatic apart from anxiety and shortness of breath. SYLVESTER Jeffery notified and ordered 1x midodrine 5mg. Repeat BP after midodrine is 80/51, HR 88. CBC, BMP ordered. Pt without void during
shift; bladder scan order placed by SYLVESTER Jeffery. Pt's bladder scan at 0100 is 254.
Repeat automatic BP at 0300 is 77/50 in left upper arm. Manual BP completed in right upper arm is 122/54. Pt remains asymptomatic. SYLVESTER Jeffery notified, no new orders at this time.
[2024-07-11] VITALS (10 sets, daily range): BP systolic 77–143; BP diastolic 50–74; O2SAT 92; BMI 23.2
[2024-07-11] MEDS: DUONEB 3 ML INH ×6 (00:55→20:49)
--- NOTE | 2024-07-11 01:07 | W.PN.UPDATE ---
Update Note
Progress Note Update
RN notified THRASHER FEEDER, patient is anxious, complaining SOB and difficulty sleeping and is 93% 6L, requesting Ambien, received DuoNeb without much relief. BP 80/53 HR 93, received 1L in ER Midodrine 5mg PO given, BP 80/51 HR 88 96% 6L-> 89/53 HR80. BS 254
after moderate urine output. Patient denies any chest pain, dizziness or light headedness. Will order stat labs, IV steroid to be given now.
Patient seen and evaluated. Mildly anxious, Tachypneic at 22, O2 5L 97%, AA Conversant, pleasant. Lungs Clear to auscultate, Denies any chest pain. reports shortness of breath (Acute on COPD, CHF), Verbally comforted.
BP 122/54 HR 95 22 97.6 92%
[2024-07-11 01:36] LABS: Hematocrit 25.1 % (37.0-47.0); Hemoglobin 7.8 g/dL (12.0-16.0); Mean Corp Hgb Conc. 31.1 g/dL (33.0-37.0); Mean Corpuscular Hgb 26.2 pg (27.0-31.0); Mean Corpuscular Volume 84.2 fL (81.0-99.0); Platelet Count 149 10^3/uL (130-400); Red Blood Cell Count 2.98 10^6/uL (4.20-5.40); Red Cell Dist. Width 15.2 % (11.5-14.5); White Blood Cell Count 4.6 10^3/uL (4.8-10.8)
[2024-07-11] MEDS: TYLENOL 650 MG PO ×2 (01:47→12:08)
[2024-07-11] MEDS: DECADRON 4 MG IV ×2 (01:47→17:48)
[2024-07-11 02:05] LABS: Blood Urea Nitrogen 21 mg/dl (7-17); Calcium 9.2 mg/dl (8.4-10.2); Carbon Dioxide 19 mmol/L (22-30); Chloride 111 mmol/L (98-107); Estimated Creatinine Clearance 20 ml/min; Glucose 134 mg/dl (70-99); Potassium 3.7 mmol/L (3.5-5.1); Sodium 139 mmol/L (135-145); eGFR 34.36
[2024-07-11 08:15] LABS: % Basophils 0.2 % (0-2); % Eosinophils 0.2 % (0-6); % Immature Granulocytes 0.7 % (0-0.5); % Lymphocytes 20.7 % (20.5-51.1); % Monocytes 2.9 % (1.7-9.3); % Neutrophils 75.3 % (42.2-75.2); Absolute Lymphocytes 1.1 10^3/uL (1.2-3.4); Absolute Monocytes 0.2 10^3/uL (0.1-0.6); Absolute Neutrophils 4.2 10^3/uL (1.4-6.5); Hematocrit 23.8 % (37.0-47.0); Hemoglobin 7.6 g/dL (12.0-16.0); Mean Corp Hgb Conc. 31.9 g/dL (33.0-37.0); Mean Corpuscular Hgb 26.2 pg (27.0-31.0); Mean Corpuscular Volume 82.1 fL (81.0-99.0); Mean Platelet Volume 9.7 fL (7.4-10.4); Nucleated Red Blood Cells % 0 %; Platelet Count 155 10^3/uL (130-400); Red Cell Dist. Width 15.1 % (11.5-14.5); White Blood Cell Count 5.5 10^3/uL (4.8-10.8)
[2024-07-11 08:59] LABS: ALT (SGPT) < 10 U/L (0-35); AST (SGOT) 14 U/L (14-36); Albumin 3.4 g/dl (3.5-5.0); Alkaline Phosphatase 90 U/L (38-126); Blood Urea Nitrogen 21 mg/dl (7-17); Calcium 9.3 mg/dl (8.4-10.2); Carbon Dioxide 17 mmol/L (22-30); Chloride 111 mmol/L (98-107); Estimated Creatinine Clearance 20 ml/min; Glucose 154 mg/dl (70-99); HDL Cholesterol 60 mg/dl; LDL Cholesterol, Calculated 60 mg/dl; Sodium 139 mmol/L (135-145); Total Bilirubin 0.2 mg/dl (0.2-1.3); Total Cholesterol 131 mg/dl (50-199); Total Protein 5.7 g/dl (6.3-8.2); Triglyceride 57 mg/dl (10-149); Very Low Density Lipoprotein 11 mg/dl (0-30); eGFR 34.36
[2024-07-11] MEDS: LOW STRENGTH ASPIRIN 81 MG PO (09:39)
[2024-07-11] MEDS: HEPARIN 5000 UNITS SC ×2 (09:42→19:26)
[2024-07-11] MEDS: LIDOCAINE 4% PATCH 1 PATCH TOPICAL (09:42)
[2024-07-11] MEDS: SYNTHROID 25 MCG PO (09:43)
--- NOTE | 2024-07-11 10:11 | W.PN.HOSP.TC ---
Today's Communication/Plan
-
see outlined plan
Assessment / Plan
Assessment / Plan
Assessment:
Acute on chronic hypoxic respiratory failure
- on 3L baseline, 5L here
- wean O2 as able to baseline as treatment continues
Acute COPD Exacerbation
Hx of Right sided lobectomy for History of lung cancer status post lobectomy/chemoradiation 2013 followed by [facility])
- CXR: Small right pleural effusion with associated probable atelectasis. Bibasilar interstitial thickening may reflect pulmonary vascular congestion and/or pneumonitis
- COVID/Flu negative
- continue IV steroids
- ATC and prn nebs
- mucolytics, IS, Acapella
- Pulmonary consulted
acute on chronic HFpEF
- Sulfa allergy noted; started on Edecrin by Cards
- monitor I/Os, weights, lytes
Elevated D-dimer, chronic per daughter (an RN)
- did not tolerate V/Q attempt previously
- cannot have CT with CKD
- await pulm eval
Essential HTN
- continue BB
- hold CCB
CAD (hx of NSTEMI with stenting)
- continue ASA/BB
L3 compression fracture likely acute/subacute
- CT: Moderate L3 compression fracture likely acute/subacute otherwise no abnormality identified in the abdomen or pelvis
- continue pain control
- PT/OT
History of left subclavian stenosis
Left carotid bruit
CKD 3b, baseline Cre 1.4-1.6
- monitor BMP
History of multiple allergies including IV dye allergy [no history of intubation]
Hypothyroidism - continue replacement
Recent UTI - received Bactrim (developed rash ?allergy)
- UA here clear
Chronic anemia�normocytic
- iron deficiency
- start Ferrlecit x 3 doses
Former smoker
- Patient believes three-quarter pack per year stopped age 59 which was 24 years ago
Chronic ambulatory dysfunction
- Uses walker or wheelchair at baseline
- PT/OT
DVT ppx: SC Heparin
Code: Full
Anticipated Discharge: > 48 hours
Subjective/Interval History
-
Date of Service: July 11, 2024
on 5L (baseline 3L)
denies any new complaints presently
eager to go home
Objective Data
-
Labs:
Laboratory Results
07/11/24 07/11/24
01:28 07:46
WBC 4.6 L 5.5
Hgb 7.8 L 7.6 L
Hct 25.1 L 23.8 L
Plt Count 149 155
Sodium 139 139
Potassium 3.7 4.0
Chloride 111 H 111 H
Carbon Dioxide 19 L 17 L
BUN 21 H 21 H
Creatinine 1.5 H 1.5 H
Glucose 134 H 154 H
Calcium 9.2 9.3
Total Bilirubin 0.2
AST 14
ALT < 10
Alkaline Phosphatase 90
Vital Signs:
Vital Signs
Temp Pulse Resp BP Pulse Ox
98.1 F 97 20 129/54 94
07/11/24 07:25 07/11/24 07:25 07/11/24 07:25 07/11/24 07:25 07/11/24 07:25
I&O
07/10/24 07/11/24 07/12/24
06:59 06:59 06:59
Intake Total 1720 / 1720
Balance 1720 / 1720
Physical Exam
-
General: Respiratory Distress (mild) and Appears Chronically Ill
HEENT: Normocephalic and Atraumatic
Respiratory: Wheezes; Negative Rales or Rhonchi
Cardiac: Regular Rhythm and S1/S2
GI: Soft and Nontender
Genito-urinary: No Costovertebral Tender
Neuro: AO x 3
Psych: Calm
Data Reviewed
-
Total Time Spent with Patient (in minutes): 45
Labs: Labs Reviewed by me
--- NOTE | 2024-07-11 11:19 | W.PN.CARDCBS ---
Addendum entered and electronically signed by Lavon Morton MD 07/11/24 14:26:
I saw and examined the patient.
The Utility Assembler's note was reviewed and I agree with the note.
Comment:
GEN: No distress, awake, Ox3
HEENT: supple, anicteric, mmm
LUNGS: bilat rhonchi
CV: Reg, S1/S2, 07/24 syst LSB, no gallop
ABD: soft, BS+, NT/ND
EXT: No edema
NEURO: Gross non-focal
SKIN: No rash
Plan:
I suspect most of her symptoms are from COPD. Will increase Edecrin to 25 mg p.o. twice daily.
Creatinine overall stable at 1.5
Continue Toprol, aspirin, atorvastatin and Plavix. Continue medical therapy for coronary disease.
Pulm evaluation today.
Original Note:
Today's Communication / Plan
-
Continue gentle diuresis with edecrin
Monitor renal function and electrolytes
Pulm consulted
Continue with steroids/nebulizers/Antibiotics
Impression / Plan
-
Primary care physician: Dr. Elie Vuong
Job Honer: Previously followed with Dr. Clint Pinon of [facility] last seen in 04/2023; more recently saw a professor of fine art in [place] but does not recall his name.
Impression:
Presents 07/10/2024 with progressively worsening shortness of breath, UTI symptoms, abdominal discomfort and constipation
Hypoxia requiring higher dose supplemental oxygen
Acute heart failure with preserved ejection fraction, proBNP 2790
Hypotension
UTI symptoms
CAD
NSTEMI July 2022
s/p 3.5 mmx 22 Xience to prox RCA, 3.25 mm x 18 mm Xience to mid Circ into OM-2 and residual OM-1 stenosis 07/27/22
History of PAD
History of left subclavian stenosis
Left carotid bruit
History of lung cancer status post lobectomy/chemoradiation 2013 followed by [facility]
Hypertension
COPD/prior tobacco dependence
CKD 3b, baseline Cre 1.4-1.6
History of multiple allergies including IV dye allergy [no history of intubation]
Hypothyroidism
Echo 10/27/2022: EF 55 to 60%, mild to moderate TR with PAP 70 mmHg.
Echo 07/27/22: EF 60-65%, mildly dilated LA, mild MR, mild aortic regurgitation, mild to mod TR
Cardiac catheterization 07/27/2022: LM: Normal. LAD: LI: Left circumflex: 90% s/p 3.25 mm Xience to mid Circ into OM. RCA: Tandem 50% and 80% proximal RCA stenosis, status post 3.5 x 22 mm Xience MING
Plan:
Presents 05/10/2024 with worsening shortness of breath with increased supplemental oxygen demand, UTI symptoms, abdominal discomfort and constipation
Acute hypoxic respiratory insufficiency likely multifactorial secondary to COPD exacerbation with prior history of lung cancer and possible heart failure with preserved ejection fraction.
Noted events of overnight and this am patient having episodes where she feels very anxious starts coughing and cannot breathe improved somewhat with nebulizer treatments
Treat with steroids/nebulizers/Antibiotics
Pulmonary has been consulted
Concern for heart failure with preserved ejection fraction,
proBNP 2790 and chest x-ray/CT concerning for pulmonary edema. Although by exam seem more like COPD exacerbation.
Gentle diuresis with Edecrin. Weight down at least 3 pounds overnight
Monitor renal function and electrolytes, creatinine stable at 1.0
Unable to use Lasix for concern of allergy unknown, patient does not recall if and what allergy she has to Lasix.
History of coronary artery disease. Had PCI here in July 2022.
Followed with Dr. Pinon received records and reviewed. She was stable at follow-up in 2022. She also mentions seeing another professor of fine art in [place] but does not recall the name.
Continue Plavix, Toprol, Atorvastatin
Lipids 07/11/2024 TC 131, HDL 60, LDL 60, triglycerides 57
Amlodipine on hold secondary to hypotension.
Anemia, Hgb 8.5-7.6. Work-up, management per primary service
at bedside.
HPI 07/10/2024:
Lelo has a history of lung cancer status post lobectomy followed at [place] 2014 in remission, COPD on chronic supplemental oxygen, hypothyroidism, CKD, htn and CAD s/p NSTEMI w/ RCA MING, mid circumflex MING July 2022, PAD with left
subclavian stenosis, who presents to emergency department 07/10/2024 with worsening shortness of breath with increased supplemental oxygen demand. Patient also notes UTI symptoms and was found to have UTI on home test purchased at local pharmacy .
She has received 2 doses of Bactrim. Patient was found to be hypoxic in emergency department with pulse oximetry in the mid 80s on 3 L. Oxygenation improved on 6 L via nasal cannula to the mid 90s. Hemoglobin found to be 8.5 in emergency
department, D-dimer 0.61. BUN 19 creatinine 1.4, proBNP 2790. Small right pleural effusion noted with probable atelectasis. Bibasilar interstitial thickening which may represent pulmonary vascular congestion and or pneumonitis. CT of
abdomen/pelvis shows small bilateral pleural effusions with suspected pulmonary edema. There is lumbar compression fraction likely acute/subacute. EKG showed sinus rhythm without ischemic changes. Troponin was negative. UA pending. Initial
blood pressure found to be mildly hypotensive with systolic readings in the low to mid 90s/60's. Cardiology being asked to see patient for shortness of breath concern for heart failure.
Progress Note - Job Honer
Subjective
Date of Service: July 11, 2024
Patient seen and examined. Patient lying in bed. Currently getting nebulizer treatment as she had a coughing attack and felt short of breath. at bedside.
Objective
Labs:
07/11/24 07:46
07/11/24 07:46
Labs
Hgb 7.6 g/dL (12.0-16.0) L 07/11/24 07:46
Hct 23.8 % (37.0-47.0) L 07/11/24 07:46
Plt Count 155 10^3/uL (130-400) 07/11/24 07:46
Sodium 139 mmol/L (135-145) 07/11/24 07:46
Potassium 4.0 mmol/L (3.5-5.1) 07/11/24 07:46
BUN 21 mg/dl (7-17) H 07/11/24 07:46
Creatinine 1.5 mg/dL (0.6-1.0) H 07/11/24 07:46
Glucose 154 mg/dl (70-99) H 07/11/24 07:46
Troponins
07/10/24
11:20
Troponin I < 0.012
Vital Signs and I&O:
Vital Signs
Temp Pulse Resp BP Pulse Ox
98.1 F 97 20 129/54 94
07/11/24 07:25 07/11/24 07:25 07/11/24 07:25 07/11/24 07:25 07/11/24 07:25
Vital Signs
Temp Pulse Resp BP Pulse Ox
98.1 F 97 20 129/54 94
07/11/24 07:25 07/11/24 07:25 07/11/24 07:25 07/11/24 07:25 07/11/24 07:25
Intake & Output
07/09/24 07/10/24 07/11/24 07/12/24
06:59 06:59 06:59 06:59
Intake Total 1720 / 1720
Balance 1720 / 1720
Physical Exam
Physical Exam
GEN: No distress, awake, Ox3; currently getting nebulizer
HEENT: supple, anicteric, mmm
LUNGS:Mild crackles at bases otherwise clear CTA; appears to be mildly short of breath
CV: Reg, S1/S2, 1/6 syst LSB, no murmur
ABD: soft, BS+, NT/ND
EXT: No edema, clubbing or cyanosis
NEURO: Gross non-focal
SKIN: No rash, warm, dry, pink
.
--- NOTE | 2024-07-11 11:38 | CON.PUL ---
Consultation
Consultation Request
Date/Time Consultation Requested: 07/11/2024
Date/Time Consultation Performed: 07/11/2024
Requesting Provider: Dr. Richardson
Performing Provider: Dr. Jose Owens
Reason for Consultation: Acute respiratory insufficiency/acute exacerbation of COPD
Medical History
-
History of Present Illness:
83-year-old woman with history of COPD, oxygen dependent, history of right sided lobectomy complaining of worsening shortness of breath for the last 24 hours. Patient is chronically on 3 L supplemental oxygen she was found to require 6 L in the
emergency room.
She also apparently was complaining of urinary symptoms. Placed on Bactrim for this by primary care.
Denies any hemoptysis or phlegm production. She does complain of a runny nose that has been going on for some time.
Denies fevers or chills.
We were consulted on 07/11/2024 for evaluation.
To my evaluation patient main complaint is back pain. She is in distress due to significant back pain despite lidocaine patch for
at the bedside and states that patient has history of chronic pain and she has seen a pain specialist in the past. She has been given as needed narcotics for pain.
-
There is no history of leg edema.
-
Patient's follow-up with Dr. Huffman for COPD at [facility]. Usually on nebulizer and she was seen last about 5 weeks ago. Formoterol and Yupelri per report.
Past Medical History
Past Medical History: Other
Social History
Tobacco: Former Smoker ([id number] history quit 24 years ago. At age 59.)
Alcohol: None
Drug: None
Personal:
Living: With Family ()
Employment: Retired
Family History
Family History: Reviewed & Not Pertinent
Allergies / Home Medications
Allergies
Allergy/AdvReac Type Severity Reaction Status Date / Time
acetaminophen Allergy Unknown Verified 07/10/24 10:59
[From Tylenol-Codeine]
codeine Allergy Unknown Verified 07/10/24 10:59
codeine phosphate Allergy Unknown Verified 07/10/24 10:59
[From Tylenol-Codeine]
diclofenac sodium Allergy Unknown Verified 07/10/24 10:59
[From Arthrotec]
furosemide [From Lasix] Allergy Unknown Verified 07/10/24 10:59
hydrocodone bitartrate Allergy Unknown Verified 07/10/24 10:59
[From Vicodin]
iodine Allergy Unknown Verified 07/10/24 18:13
lansoprazole [From Prevacid] Allergy Unknown Verified 07/10/24 10:59
misoprostol [From Arthrotec] Allergy Unknown Verified 07/10/24 10:59
oxycodone [From OxyContin] Allergy Nausea / Verified 07/10/24 10:59
Vomiting
oxycodone HCl [From Percocet] Allergy Unknown Verified 07/10/24 10:59
Penicillins Allergy Unknown Verified 07/10/24 18:13
shellfish derived Allergy Tongue Verified 07/10/24 18:13
Swelling
tiotropium bromide Allergy Unknown Verified 07/10/24 10:59
[From Spiriva with
HandiHaler]
tramadol Allergy Unknown Verified 07/10/24 10:59
tramadol HCl [From Ultracet] Allergy Unknown Verified 07/10/24 10:59
Home Medications
�Medication �Instructions �Recorded �Confirmed �Last Taken �Type
ascorbic acid (vitamin C) 1,000 mg 1,000 mg PO DAILY Supplement 02/28/18 07/10/24 Unknown History
tablet (Vitamin C)
calcium 600 mg (as carbonate)-vit 1 ea PO DAILY Supplement 02/28/18 07/10/24 Unknown History
D3 20 mcg (800 unit) chewable
tablet (Caltrate plus D)
amlodipine 5 mg tablet (Norvasc) 5 mg PO BID Blood pressure 07/25/22 07/10/24 Unknown History
levothyroxine 25 mcg tablet 25 mcg PO DAILY Thyroid 07/25/22 07/10/24 Unknown History
(Synthroid)
zolpidem 5 mg tablet (Ambien) 2.5 mg PO HSPRN PRN sleeping 07/25/22 07/10/24 Unknown History
metoprolol succinate 25 mg 25 mg PO DAILY Heart 07/29/22 07/10/24 Unknown Rx
tablet,extended release 24 hr disease/condition #30 tabs
clopidogrel 75 mg tablet 75 mg PO QPM Blood Clot 07/10/24 07/10/24 Unknown History
Prevention/Tx
magnesium oxide 250 mg PO HS Supplement 07/10/24 07/10/24 Unknown History
mirtazapine 15 mg disintegrating 15 mg PO HS Mental Health/Anxiety 07/10/24 07/10/24 Unknown History
tablet
ondansetron 4 mg disintegrating 4 mg PO Q8HPRN PRN nausea 07/10/24 07/10/24 Unknown History
tablet
sulfamethoxazole 800 1 tab PO DAILY Infection 07/10/24 07/10/24 Unknown History
mg-trimethoprim 160 mg tablet
(Bactrim DS)
Review of Systems
-
History Source: Patient
All other systems: Negative unless noted
Vitals / Labs / Diagnostic Testing
Vital Signs
Temp Pulse Resp BP Pulse Ox
98.1 F 100 24 129/54 94
07/11/24 07:25 07/11/24 11:27 07/11/24 11:27 07/11/24 07:25 07/11/24 07:25
Lab Data
07/11/24 07:46
07/11/24 07:46
Microbiology
07/10/24 15:43 Nasal Swab Influenza Types A & B (MICKEY) - Final
Negative for Influenza A & B, NAAT
Negative results must be combined with clinical observations
and patient history.
Nucleic Acid Amplification test (NAAT)performed on the
[employer] platform.
Diagnostic Testing:
Physical Exam
-
HEENT: Normocephalic
Cardiovascular: S1/S2 and Regular Rhythm
Respiratory: Wheeze (none)
GI: Soft and Non Distended
Neurology: Awake, Alert, No Motor Deficits and Other (Poor historian.)
Skin: Warm
General: Respiratory Distress (Due to back pain.)
Assessment
-
83-year-old woman with past medical history noted, admitted with shortness of breath and worsening oxygenation. We were consulted on 07/11/2024 for evaluation.
Acute on chronic respiratory insufficiency currently requiring 6 L
Acute exacerbation of COPD
Chest x-ray 07/10/2024: Reviewed small right pleural effusion with associated atelectasis. Bibasilar interstitial thickening unclear etiology
CT abdomen pelvis 07/10/2024: Lung cuts reviewed: Small bilateral pleural effusions. Moderate L3 compression fracture. Possible pulmonary edema component. Postinflammatory scarring on the right.(Pleural effusions new compared to February 2024)
Negative influenza/negative COVID
Increased proBNP 2790/negative troponin.
Mildly elevated D-dimer 0.61
Suspect acute on chronic heart failure with preserved ejection fraction.
Echocardiogram 07/27/2022: Reviewed, showed normal LVEF. Normal diastolic dysfunction. Mild MR. Mild AR. Mild to moderate TR. Mild pulmonary regurgitation.
EKG 07/10/2024: Reviewed sinus rhythm/nonspecific change in ST segment inferior leads. Nonspecific T wave abnormality inferior leads.
Acute on chronic back pain L3 compression fracture.
Chronic kidney disease
Conditions present prior admission:
Former smoker quit 24 years ago
Coronary artery disease status post RCA stent in July 2022 at [facility]
Hypertension
Left subclavian stenosis
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
History of right lobectomy for lung cancer
Hypothyroidism
Ambulatory dysfunction ambulates with a walker and a cane
Assessment and plan:
Suspect multiple etiologies for her current presentation including acute exacerbation of COPD and acute on chronic heart failure. Patient has chronic kidney disease that also complicates her volume status.
To my exam her main complaint was significant back pain causing respiratory distress.
No significant bronchospasm.
Unable to produce any phlegm, not coughing on exam.
-
CT abdomen pelvis lung cuts with mild bilateral pleural effusion and pulmonary vascular congestion.
Agree with diuretics
Cardiology correspondence reviewed-echocardiogram will be repeated
-
From the pulmonary perspective: Acute exacerbation mild at best. Not significant bronchospastic, not producing any phlegm.
Ipratropium/albuterol 4 times daily
Will add Pulmicort
Reduced, dexamethasone 2 mg IV every 12-likely has osteoporotic lumbar fracture. Hopefully rapid taper.
Mucolytic's
Incentive spirometry
Acapella device attempted the patient states that she is not producing any phlegm.
Patient states that she follows up with Dr. Huffman at [facility]. On nebulizers with formoterol/Yupelri. She is a poor historian, helping to fill in the gaps.
-
Did receive a dose of ceftriaxone currently on hold
Continue to observe off antibiotics, pulmonary infection not highly suspected.
-
Continue oxygen supplementation to maintain pulse ox above 90%
Usually on 3 L at home.
-
Back pain due to vertebral fracture-noted on CAT scan.
Analgesia per primary team. Currently with a lidocaine patch.
Per she has seen a pain doctor in the past and she has been placed on narcotics as needed in the outpatient setting.
I will defer analgesia to primary team but this could help her respiratory status as well.
-
Slightly increased D-dimer: Doubt thromboembolic event.
We have other reasons to explain her hypoxemia.
If there is no improvement after diuresis and steroids then may contemplate further evaluation. patient is at risk for contrast-induced nephropathy.
Lower extremities without swelling
Will continue to reevaluate on a daily basis to determine whether further evaluation is necessary.
-
DVT prophylaxis with heparin subcu.
-
Will follow
Data reviewed including:
CT chest 02/28/2018: No evidence for acute pathology. Postoperative changes consistent with right upper lobectomy with anterior and lateral right upper rib deformity consistent with prior surgical intervention. Mild pleural-parenchymal scarring of
the right apex and anterior right lung base. 3 mm subpleural pulmonary nodule left lower lobe. Mild emphysema. Atherosclerosis.
[2024-07-11] MEDS: MUCINEX 1200 MG PO ×2 (14:11→19:26)
[2024-07-11] MEDS: DECADRON 2 MG IV (14:12)
[2024-07-11] MEDS: TOPROL XL 25 MG PO (14:12)
[2024-07-11] MEDS: FERRLECIT 110 MG IV (14:15)
--- NOTE | 2024-07-11 16:28 | CM ---
application support manager reviewed patient's chart and met with patient and spouse at bedside, patient lives with her spouse in a 2 story home with 3 steps to enter, patient is independent with adl's and ambulation, patient is currently on 5-6 liters of oxygen
and patient is on 3 liters of oxygen at baseline, patient gets her oxygen through [employer].
PCP: Millie Virk
Pharmacy: [facility]
Plan; Home with spouse when stable, need to follow for increased home oxygen needs.
--- NOTE | 2024-07-11 17:00 | PTCARENOTE ---
Pt having trouble breathing, satting in mid 80s on 6L O2. Increased to *L, brought up to ()% with Labored breathing Informed. ABG ordered and nebtx. Respiratory unable to get ABG. Pt refused more attempts. Pt also complained of 'bad heartburn',
ECG obtained. NSR with abnormal ST. made aware. Stat VBG and portable cxr.
[2024-07-11 17:24] LABS: Venous Blood Gas B.E. -5.7 mmol/L (-4 to +4); Venous Blood Gas HCO3 19.3 mmol/L (22-27); Venous Blood Gas O2 Sat % 98.9 %; Venous Blood Gas pCO2 35 mmHg (35-48); Venous Blood Gas pH 7.35 (7.32-7.43); Venous Blood Gas pO2 108 mmHg (30-50)
[2024-07-11] MEDS: TYLENOL 1000 MG PO ×2 (17:48→21:30)
[2024-07-11] MEDS: PLAVIX 75 MG PO (17:49)
[2024-07-11] MEDS: LIPITOR 40 MG PO (17:49)
[2024-07-11] MEDS: EDECRIN 50 MG IV (18:02)
[2024-07-11] MEDS: ZOFRAN 4 MG IV (18:25)
--- NOTE | 2024-07-11 18:28 | W.PN.UPDATE ---
Update Note
Progress Note Update
Called to see-increasing shortness of breath and hypoxia.
Patient came in with shortness of breath and hypoxia. Normally on 3 L. Progressively requiring more oxygen throughout the day. Currently at 8 L.
Reviewed cardiology and pulmonary route. Concern of possible heart failure, possible COPD flare.
Patient is tachypneic and complains of shortness of breath.
She has bilateral lower zone wheeze and also bilateral lower zone crackles. Do not appreciate JVD or lower extremity edema.
She did not get her dose of ethacrynic acid today because of low blood pressure. She is allergic to Lasix which gives her a rash per daughter at bedside.
Stat VBG shows pH of 7.35 pCO2 of 35 and pO2 of 108.
Stat chest x-ray shows similar appearance of biapical pleural parenchymal scarring more pronounced on the right, small right and trace left pleural effusion with bibasilar opacities similar to yesterday's chest x-ray noted.
Suspect multifactorial including COPD flare and CHF.
Will give a dose of IV ethacrynic acid as she did not receive any today. Increase the dose of steroids. Will give another stat nebulizer.
If Responds to the treatments will try to wean oxygen. If no improvement patient to be transferred to higher level of care.
Discussed with RN and family at bedside.
[2024-07-11] MEDS: EDECRIN 25 MG PO (19:26)
[2024-07-11] MEDS: PULMICORT 0.5 MG INH (20:54)
[2024-07-12] MEDS: DECADRON 4 MG IV ×3 (01:00→17:02)
[2024-07-12 03:21] VITALS: BP 139/68
[2024-07-12] MEDS: SYNTHROID 25 MCG PO (04:43)
[2024-07-12 06:00] VITALS: BMI 23.3
[2024-07-12 07:20] VITALS: BP 108/68
[2024-07-12] MEDS: DUONEB 3 ML INH ×3 (07:24→20:41)
[2024-07-12] MEDS: PULMICORT 0.5 MG INH ×2 (07:24→20:41)
[2024-07-12 08:09] LABS: ALT (SGPT) 12 U/L (0-35); AST (SGOT) 20 U/L (14-36); Albumin 3.7 g/dl (3.5-5.0); Alkaline Phosphatase 89 U/L (38-126); Blood Urea Nitrogen 26 mg/dl (7-17); Calcium 9.1 mg/dl (8.4-10.2); Carbon Dioxide 22 mmol/L (22-30); Chloride 107 mmol/L (98-107); Estimated Creatinine Clearance 18 ml/min; Glucose 118 mg/dl (70-99); Sodium 139 mmol/L (135-145); Total Bilirubin 0.3 mg/dl (0.2-1.3); Total Protein 6.2 g/dl (6.3-8.2); eGFR 29.57
[2024-07-12 08:30] LABS: % Basophils 0.1 % (0-2); % Eosinophils 0.7 % (0-6); % Immature Granulocytes 0.9 % (0-0.5); % Lymphocytes 16.5 % (20.5-51.1); % Neutrophils 77.8 % (42.2-75.2); Absolute Eosinophils 0.1 10^3/uL (0-0.7); Absolute Immature Granulocytes 0.1 10^3/uL (0-0.05); Absolute Lymphocytes 1.8 10^3/uL (1.2-3.4); Absolute Monocytes 0.4 10^3/uL (0.1-0.6); Absolute Neutrophils 8.3 10^3/uL (1.4-6.5); Hematocrit 27.6 % (37.0-47.0); Hemoglobin 8.8 g/dL (12.0-16.0); Mean Corp Hgb Conc. 31.9 g/dL (33.0-37.0); Mean Corpuscular Volume 81.7 fL (81.0-99.0); Mean Platelet Volume 9.6 fL (7.4-10.4); Nucleated Red Blood Cells % 0 %; Platelet Count 208 10^3/uL (130-400); Red Blood Cell Count 3.38 10^6/uL (4.20-5.40); Red Cell Dist. Width 15.4 % (11.5-14.5); White Blood Cell Count 10.7 10^3/uL (4.8-10.8)
[2024-07-12] MEDS: TOPROL XL 25 MG PO (09:31)
[2024-07-12] MEDS: TYLENOL 1000 MG PO ×2 (09:31→17:03)
[2024-07-12] MEDS: LOW STRENGTH ASPIRIN 81 MG PO (09:32)
[2024-07-12] MEDS: HEPARIN 5000 UNITS SC ×2 (09:32→19:46)
[2024-07-12] MEDS: MUCINEX 1200 MG PO ×2 (09:32→19:48)
[2024-07-12] MEDS: EDECRIN 25 MG PO ×2 (09:33→19:37)
[2024-07-12] MEDS: LIDOCAINE 4% PATCH 1 PATCH TOPICAL (09:33)
[2024-07-12 11:22] VITALS: BP 111/88
[2024-07-12] MEDS: DUONEB INH ×2 (11:33→11:41)
--- NOTE | 2024-07-12 13:14 | W.PN.HOSP.TC ---
Today's Communication/Plan
-
resume PO Edecrin
continue IV steroids
wean O2
ST evaluation
DNR status
Venous dopplers
Assessment / Plan
Assessment / Plan
Assessment:
Acute on chronic hypoxic respiratory failure
- on 3L baseline, currently 8L
- wean O2 as able to baseline as treatment continues
Acute COPD Exacerbation
Hx of Right sided lobectomy for History of lung cancer status post lobectomy/chemoradiation 2013 followed by [facility])
- CXR: Small right pleural effusion with associated probable atelectasis. Bibasilar interstitial thickening may reflect pulmonary vascular congestion and/or pneumonitis
- COVID/Flu negative
- continue IV steroids
- ATC and prn nebs
- mucolytics, IS, Acapella
- Pulmonary following
- ST eval as well
acute on chronic HFpEF
- Sulfa allergy noted; started on Edecrin by Cards; s/p 1 dose IV 07/11
- monitor I/Os, weights, lytes
Elevated D-dimer, chronic per daughter (an RN)
- did not tolerate V/Q attempt previously
- cannot have CT with CKD
- check venous dopplers
Essential HTN
- continue BB
- hold CCB
CAD (hx of NSTEMI with stenting)
- continue ASA/BB
L3 compression fracture likely acute/subacute
- CT: Moderate L3 compression fracture likely acute/subacute otherwise no abnormality identified in the abdomen or pelvis
- continue pain control
- PT/OT
History of left subclavian stenosis
Left carotid bruit
CKD 3b, baseline Cre 1.4-1.6
- monitor BMP
History of multiple allergies including IV dye allergy [no history of intubation]
Hypothyroidism - continue replacement
Recent UTI - received Bactrim (developed rash ?allergy)
- UA here clear
Chronic anemia�normocytic
- iron deficiency
- continue Ferrlecit x 3 doses
Former smoker
- Patient believes three-quarter pack per year stopped age 59 which was 24 years ago
Chronic ambulatory dysfunction
- Uses walker or wheelchair at baseline
- PT/OT
DVT ppx: SC Heparin
Code: DNR
Anticipated Discharge: > 48 hours
Subjective/Interval History
-
Date of Service: July 12, 2024
less labored breathing
down to 8L NC
Objective Data
-
Labs:
Laboratory Results
07/12/24
07:20
WBC 10.7
Hgb 8.8 L
Hct 27.6 L
Plt Count 208 D
Sodium 139
Potassium 4.0
Chloride 107
Carbon Dioxide 22
BUN 26 H
Creatinine 1.7 H
Glucose 118 H
Calcium 9.1
Total Bilirubin 0.3
AST 20
ALT 12
Alkaline Phosphatase 89
Vital Signs:
Vital Signs
Temp Pulse Resp BP Pulse Ox
97.2 F 83 18 111/88 95
07/12/24 11:22 07/12/24 11:22 07/12/24 11:22 07/12/24 11:22 07/12/24 11:22
I&O
07/11/24 07/12/24 07/13/24
06:59 06:59 06:59
Intake Total 1720 / 1720 1320 / 1320
Output Total 600 / 600
Balance 1720 / 1720 720 / 720
Physical Exam
-
General: No Apparent Distress
HEENT: Normocephalic and Atraumatic
Respiratory: Clear to Auscultation
Cardiac: Regular Rhythm and S1/S2
GI: Soft
Neuro: AO x 3
Hematologic / Lymphatic: No Lymphadenopathy
Psych: Calm
Data Reviewed
-
Total Time Spent with Patient (in minutes): 42
Labs: Labs Reviewed by me
--- NOTE | 2024-07-12 13:18 | W.PN.PUL3 ---
Today's Communication / Plan
-
Check bilateral lower extremity Doppler
Aspiration precautions
Wean oxygen as able, maintain saturation greater than 90%
Remains off antibiotics
Unfortunately, ethacrynic acid is not an effective diuretic. Lasix allergy noted
Change Decadron to oral prednisone in a.m.
Poor long-term prognosis given age and comorbidities
Assessment
-
83-year-old woman with past medical history noted, admitted with shortness of breath and worsening oxygenation. We were consulted on 07/11/2024 for evaluation.
Acute on chronic respiratory insufficiency currently requiring 6 L
Acute exacerbation of COPD
Chest x-ray 07/10/2024: Reviewed small right pleural effusion with associated atelectasis. Bibasilar interstitial thickening unclear etiology
CT abdomen pelvis 07/10/2024: Lung cuts reviewed: Small bilateral pleural effusions. Moderate L3 compression fracture. Possible pulmonary edema component. Postinflammatory scarring on the right.(Pleural effusions new compared to February 2024)
Negative influenza/negative COVID
Increased proBNP 2790/negative troponin.
Mildly elevated D-dimer 0.61
Suspect acute on chronic heart failure with preserved ejection fraction.
Echocardiogram 07/27/2022: Reviewed, showed normal LVEF. Normal diastolic dysfunction. Mild MR. Mild AR. Mild to moderate TR. Mild pulmonary regurgitation.
EKG 07/10/2024: Reviewed sinus rhythm/nonspecific change in ST segment inferior leads. Nonspecific T wave abnormality inferior leads.
Acute on chronic back pain L3 compression fracture.
Chronic kidney disease
Conditions present prior admission:
Former smoker quit 24 years ago
Coronary artery disease status post RCA stent in July 2022 at [facility]
Hypertension
Left subclavian stenosis
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
History of right lobectomy for lung cancer
Hypothyroidism
Ambulatory dysfunction ambulates with a walker and a cane
Assessment and plan:
At this time, respiratory status remains tenuous with 8 to 10 L requirement although patient appears to be comfortable
I decreased supplemental oxygen to 4 L during my interview and examination. Patient desaturated to 83%. She remained asymptomatic
On further questioning, family members at bedside (children) states that saturation goes down routinely in the 70s at home. admitted that saturation goes down to high 70s with simple ambulation on 3. According to daughter, this has been a
chronic problem
Weak cough on exam
No wheezing today
Chest x-ray yesterday p.m. with no acute findings, persistent bilateral interstitial changes
Echocardiogram has yet to be done. Prior echocardiogram from 2022 reveals PA pressure of 40
Moving forward
We will continue with supportive care
Reviewed with family at bedside etiologies to consider with sudden onset increased oxygen requirement and wheezing, now improved. Heart failure, aspiration, less likely thromboembolic disease (unless hypoxia persists)
CT abdomen, lung bases with interstitial process. Minimal pleural effusion. Difficult to distinguish between interstitial disease and vascular congestion
Although weight has decreased by 3 kg, negative fluid status cannot be confirmed
Will continue nebulized therapy
Ipratropium/albuterol 4 times daily
Pulmicort twice daily
Reduced, dexamethasone 2 mg IV every 12-likely has osteoporotic lumbar fracture. Hopefully rapid taper
Transition to oral prednisone 07/13
Mucolytic's
Incentive spirometry
Acapella device attempted the patient states that she is not producing any phlegm.
Patient states that she follows up with Dr. Huffman at [facility]. On nebulizers with formoterol/Yupelri. She is a poor historian, and children at bedside helping to fill in the gaps.
Apparently she has a new nodule in the lung and recurrent cancer is being considered per family
Did receive a dose of ceftriaxone currently on hold
Continue to observe off antibiotics, pulmonary infection not highly suspected
Unfortunately, patient not receiving Lasix due to unknown reaction to Lasix
Ethacrynic acid has been ordered but this is not very effective
Continue with efforts to wean oxygen
maintain pulse ox above 90%
Usually on 3 L at home.
Back pain due to vertebral fracture-noted on CAT scan. This is patient's primary complaint
Analgesia per primary team. Currently with a lidocaine patch.
Per she has seen a pain doctor in the past and she has been placed on narcotics as needed in the outpatient setting.
I will defer analgesia to primary team but this could help her respiratory status as well.
Slightly increased D-dimer: Doubt thromboembolic event.
We have other reasons to explain her hypoxemia.
If there is no improvement after diuresis and steroids then may contemplate further evaluation. patient is at risk for contrast-induced nephropathy.
Lower extremities without swelling
Check lower extremity Doppler bilaterally
Do not think VQ scan would be helpful given significant baseline interstitial process, underlying lung disease, prior lung surgery
DVT prophylaxis with heparin subcu.
I did review CODE STATUS with family at bedside
Family states she has a DNR request
This was relayed with primary service. This will be changed if confirmed by primary service
We will follow up
Data reviewed including:
CT chest 02/28/2018: No evidence for acute pathology. Postoperative changes consistent with right upper lobectomy with anterior and lateral right upper rib deformity consistent with prior surgical intervention. Mild pleural-parenchymal scarring of
the right apex and anterior right lung base. 3 mm subpleural pulmonary nodule left lower lobe. Mild emphysema. Atherosclerosis.
Subjective Data
-
Date of Service:
Date of Service: July 12, 2024
Subjective:
Episode of increased shortness of breath yesterday p.m. noted with increased oxygen requirement up to 8 to 10 L. Prior to that was on 3 to 4 L. Presently, patient denies shortness of breath. She did have an episode of nausea earlier today, noted
to have saturation in the low 70s according to daughter at bedside. Patient denies chest pain, hemoptysis. She has a mild cough. Multiple family members at bedside including son, daughter and
Objective Data
Data Reviewed
Vital Signs / I&O / Oxygen:
Vital Signs
Temp Pulse Resp BP Pulse Ox
97.2 F 83 18 111/88 95
07/12/24 11:22 07/12/24 11:22 07/12/24 11:22 07/12/24 11:22 07/12/24 11:22
Intake and Output
07/11/24 07/12/24 07/13/24
06:59 06:59 06:59
Intake Total 1720 / 1720 1320 / 1320
Output Total 600 / 600
Balance 1720 / 1720 720 / 720
SaO2 95
Nasal Cannula flow liters per 10
minute
Physical Exam
General: Comfortable
HEENT: Normocephalic and Anicteric
Cardiovascular: S1-S2, Regular Rhythm, Murmur (n), Rub (n) and Peripheral Edema (n)
Respiratory: Wheeze (n), Crackles (Minimal at base), Rhonchi (n), Non-Labored Respirations, Stridor (n) and Other (Decreased breath sounds throughout)
GI: Soft, Distended (Slightly distended) and Non Tender
Neurology: Awake, Alert and No Motor Deficits (Able to sit up with minimal assistance)
Skin: Cyanosis (n), Jaundice (n) and Rash (n)
Labs/Micro/Reports
Lab Data
07/12/24 07:20
07/12/24 07:20
Laboratory Results
07/11/24
16:30
pH Cancelled
pCO2 Cancelled
pO2 Cancelled
HCO3 Cancelled
O2 Delivery Level Cancelled
Microbiology
07/10/24 15:43 Nasal Swab Influenza Types A & B (MICKEY) - Final
Negative for Influenza A & B, NAAT
Negative results must be combined with clinical observations
and patient history.
Nucleic Acid Amplification test (NAAT)performed on the
[employer] platform.
[2024-07-12] MEDS: FERRLECIT 110 MG IV (15:07)
[2024-07-12 15:09] VITALS: BP 110/71
--- NOTE | 2024-07-12 15:18 | W.PN.CARDCBS ---
Today's Communication / Plan
-
P.o./IV ethacrynic acid for diuresis in the setting of possible Lasix allergy
Continue goal-directed therapy aspirin/Plavix, statin, beta-adrienne
Treatment of COPD per pulm, wean O2 as tolerated, steroids
Impression / Plan
-
Primary care physician: Dr. Elie Vuong
Alternative Financing Specialist: Previously followed with Dr. Clint Pinon of [facility] last seen in 04/2023; more recently saw a pricing director in [place] but does not recall his name.
Impression:
Presents 07/10/2024 with progressively worsening shortness of breath, UTI symptoms, abdominal discomfort and constipation
Hypoxia requiring higher dose supplemental oxygen
Acute heart failure with preserved ejection fraction, proBNP 2790
Hypotension
UTI symptoms
CAD
NSTEMI July 2022
s/p 3.5 mmx 22 Xience to prox RCA, 3.25 mm x 18 mm Xience to mid Circ into OM-2 and residual OM-1 stenosis 07/27/22
History of PAD
History of left subclavian stenosis
Left carotid bruit
History of lung cancer status post lobectomy/chemoradiation 2013 followed by [facility]
Hypertension
COPD/prior tobacco dependence
CKD 3b, baseline Cre 1.4-1.6
History of multiple allergies including IV dye allergy [no history of intubation]
Hypothyroidism
Echo 10/27/2022: EF 55 to 60%, mild to moderate TR with PAP 70 mmHg.
Echo 07/27/22: EF 60-65%, mildly dilated LA, mild MR, mild aortic regurgitation, mild to mod TR
Cardiac catheterization 07/27/2022: LM: Normal. LAD: LI: Left circumflex: 90% s/p 3.25 mm Xience to mid Circ into OM. RCA: Tandem 50% and 80% proximal RCA stenosis, status post 3.5 x 22 mm Xience MING
Plan:
Presents 05/10/2024 with worsening shortness of breath with increased supplemental oxygen demand, UTI symptoms, abdominal discomfort and constipation
Acute hypoxic respiratory insufficiency likely multifactorial secondary to COPD exacerbation with prior history of lung cancer and possible heart failure with preserved ejection fraction.
Noted events of overnight and this am patient having episodes where she feels very anxious starts coughing and cannot breathe improved somewhat with nebulizer treatments
Treat with steroids/nebulizers/Antibiotics
Pulmonary has been consulted, appreciate input
Concern for heart failure with preserved ejection fraction
proBNP 2790 and chest x-ray/CT concerning for pulmonary edema. Although by exam seem more like COPD exacerbation.
Gentle diuresis with Edecrin increased to 25 PO BID
Monitor renal function and electrolytes, creatinine without significant change 1.5-1.5-1.7
Unable to use Lasix for concern of allergy unknown, patient does not recall if and what allergy she has to Lasix; can consider trial with close monitoring/ppx if unable to effectively diurese patient
History of coronary artery disease. Had PCI here in July 2022.
Followed with Dr. Pinon received records and reviewed. She was stable at follow-up in 2022. She also mentions seeing another pricing director in [place] but does not recall the name.
Continue Plavix, Toprol, Atorvastatin
Lipids 07/11/2024 TC 131, HDL 60, LDL 60, triglycerides 57
Amlodipine on hold secondary to hypotension.
Anemia, Hgb 8.5-7.6. Work-up, management per primary service
at bedside.
HPI 07/10/2024:
Lelo has a history of lung cancer status post lobectomy followed at [facility] 2013 in remission, COPD on chronic supplemental oxygen, hypothyroidism, CKD, htn and CAD s/p NSTEMI w/ RCA MING, mid circumflex MING July 2022, PAD with left
subclavian stenosis, who presents to emergency department 07/10/2024 with worsening shortness of breath with increased supplemental oxygen demand. Patient also notes UTI symptoms and was found to have UTI on home test purchased at local pharmacy .
She has received 2 doses of Bactrim. Patient was found to be hypoxic in emergency department with pulse oximetry in the mid 80s on 3 L. Oxygenation improved on 6 L via nasal cannula to the mid 90s. Hemoglobin found to be 8.5 in emergency
department, D-dimer 0.61. BUN 19 creatinine 1.4, proBNP 2790. Small right pleural effusion noted with probable atelectasis. Bibasilar interstitial thickening which may represent pulmonary vascular congestion and or pneumonitis. CT of
abdomen/pelvis shows small bilateral pleural effusions with suspected pulmonary edema. There is lumbar compression fraction likely acute/subacute. EKG showed sinus rhythm without ischemic changes. Troponin was negative. UA pending. Initial
blood pressure found to be mildly hypotensive with systolic readings in the low to mid 90s/60's. Cardiology being asked to see patient for shortness of breath concern for heart failure.
Progress Note - Alternative Financing Specialist
Subjective
Date of Service: July 12, 2024
Patient seen and examined. Acute shortness of breath overnight improved with steroids, increased IV ethacrynic acid and nebulizer treatment. Patient noting improved shortness but this morning. Patient denies any chest pain, palpitations, weakness.
Objective
Labs:
07/12/24 07:20
07/12/24 07:20
Labs
Hgb 8.8 g/dL (12.0-16.0) L 07/12/24 07:20
Hct 27.6 % (37.0-47.0) L 07/12/24 07:20
Plt Count 208 10^3/uL (130-400) D 07/12/24 07:20
Sodium 139 mmol/L (135-145) 07/12/24 07:20
Potassium 4.0 mmol/L (3.5-5.1) 07/12/24 07:20
BUN 26 mg/dl (7-17) H 07/12/24 07:20
Creatinine 1.7 mg/dL (0.6-1.0) H 07/12/24 07:20
Glucose 118 mg/dl (70-99) H 07/12/24 07:20
Troponins
07/10/24
11:20
Troponin I < 0.012
Vital Signs and I&O:
Vital Signs
Temp Pulse Resp BP Pulse Ox
97.6 F 86 20 110/71 96
07/12/24 15:09 07/12/24 15:09 07/12/24 15:09 07/12/24 15:09 07/12/24 15:09
Vital Signs
Temp Pulse Resp BP Pulse Ox
97.6 F 86 20 110/71 96
07/12/24 15:09 07/12/24 15:09 07/12/24 15:09 07/12/24 15:09 07/12/24 15:09
Intake & Output
07/10/24 07/11/24 07/12/24 07/13/24
06:59 06:59 06:59 06:59
Intake Total 1720 / 1720 1320 / 1320
Output Total 600 / 600
Balance 1720 / 1720 720 / 720
Physical Exam
Physical Exam
GEN: No distress, awake, Ox3
HEENT: supple, anicteric, mmm
LUNGS: bilat rhonchi
CV: Reg, S1/S2, 1/6 syst LSB, no gallop
ABD: soft, BS+, NT/ND
EXT: No edema
NEURO: Gross non-focal
SKIN: No rash
--- NOTE | 2024-07-12 16:52 | PTOTSP ---
ST Acute Care Evaluation
Pt currently presents with clinical signs of mild oral dysphagia characterized by mild to moderately prolonged mastication and bolus formation as well as suspected mild pharyngoesophageal dysphagia characterized by occasional belching with
subsequent throat clearing s/p ingestion of sips of thin liquids that is suspicious for penetration/aspiration from retrograde flow due to esophageal dysfunction/untx GERD.
Recommendations:
- DOWNGRADE diet to SOFT BITE SIZED SOLIDS and continue with THIN LIQUIDS (small sips) and meds as tolerated.
- Aspiration and reflux precautions: HOB fully upright for ALL PO intake and for at least 60 minutes after PO intake; pt must be fully awake and alert for all PO intake; small bites/sips; alternate bites/sips.
- Consider re-starting PPI for GERD s/s.
- BOILER TUBE BLOWER to f/u re: diet tolerance and to determine whether pt would benefit from an instrumental swallow study.
[2024-07-12] MEDS: PROTONIX 40 MG PO (17:03)
[2024-07-12] MEDS: PLAVIX 75 MG PO (17:04)
[2024-07-12] MEDS: LIPITOR 40 MG PO (17:04)
[2024-07-12 19:25] VITALS: BP 169/85
[2024-07-12] MEDS: NORCO 5/325 1 TABLET PO (19:51)
[2024-07-12] MEDS: TYLENOL PO (22:20)
[2024-07-12 22:41] VITALS: BP 139/68
[2024-07-13] MEDS: ATIVAN 0.5 MG PO (00:44)
--- NOTE | 2024-07-13 02:42 | PTCARENOTE ---
Patient verbally aggressive and pulling off 02 and attempting to exit bed multiple times during shift. Patient cursing at staff members. Needs multiple redirections from staff. Med sitter applied to room.
--- NOTE | 2024-07-13 02:49 | PTCARENOTE ---
Patient constantly removing tele monitor.
[2024-07-13 03:37] VITALS: BP 92/64
[2024-07-13] MEDS: SYNTHROID 25 MCG PO (04:41)
[2024-07-13 06:00] VITALS: BMI 23.5
[2024-07-13] MEDS: DUONEB 3 ML INH ×4 (07:22→20:01)
[2024-07-13] MEDS: PULMICORT 0.5 MG INH ×2 (07:22→20:01)
--- NOTE | 2024-07-13 08:30 | PTCARENOTE ---
Pt remains uncooperative, combative, verbally abusive and attempting to get OOB. Refusing lab work and cardiac testing. Dr. Richardson aware, will attempt at later time if cooperative.
--- NOTE | 2024-07-13 10:04 | W.PN.CARDCBS ---
Addendum entered and electronically signed by Arlin Polk DO 07/13/24 17:23:
I saw and examined the patient.
The Vacation Sales Advisor's note was reviewed and I agree with the note.
Comment: Patient seen and examined at bedside. Underlying dementia. Discussed care with nursing�last night patient was agitated and became physical with staff. Today she is more calm however she refused to get on the gurney to have her
echocardiogram, refused morning medications and refused lab draws. Nursing retried after lunch and it does appear patient agreed to echocardiogram and lab work as well as her medications.
GEN: No distress, awake, lying in bed.
HEENT: mmm
LUNGS: Bronchovesicular breath sounds decreased effort. Scattered end expiratory wheezes
CV: Reg, S1/S2, 2/6 SM
EXT: trace pedal edema
Plan:
Admitted with COPD and HFpEF Exacerbation
-Initial proBNP 2790; negative CTNI
-Remains on 8 L mid flow nasal cannula being weaned as able
-She was started on PO Edecrin as she has a h/o intolerance/allergy to lasix. Details unknown.
-Edecrin dose increased to 25mg BID 07/11
-Patient has underlying dementia with unreliable history. Initially refused medications, lab work and echocardiogram however was agreeable later in the day. Will hold off on IV edecrin as I suspect a lot of her symptoms are related to COPD. If no
significant improvement and stable renal function could consider an IV dose tomorrow
-Late resulted labs with improved renal function back at baseline, creatinine 1.5 after vance to 1.7 yesterday.
-2D echocardiogram with normal biventricular size and function but with grade 2 diastolic dysfunction, mild to moderate TR and pulmonary hypertension suggested with RVSP estimated 50-55 mmHg
Acute exacerbation of COPD/ Chronic hypoxia on home O2/History of lung cancer status post right lobectomy followed at [facility]
-Pulmonary consult reviewed
-O2 supplementation, wean as able
-Continue BDA. Transitioned to oral Prednisone
Coronary artery disease status post RCA stent in July 2022 at [facility]; History of left subclavian stenosis
-Continue Plavix, Toprol, and atorvastatin. h/o PCI 07/2022.
Chronic renal insufficiency with baseline creatinine 1.4�1.6
DNR/DNI
Palliative care consult per primary which I think is reasonable
Original Note:
Today's Communication / Plan
-
Pt. refused AM labs, creat has been rising.
May consider IV edecrin, however will hold off until can reassess renal function
Continue management of COPD per pulm
Impression / Plan
-
Primary care physician: Dr. Elie Vuong
Medical Scientist: Previously followed with Dr. Clint Pinon of [facility] last seen in 04/2023; more recently saw a cdl truck driver in [place] but does not recall his name.
Impression:
Presented w/ SOB, UTI symptoms, abdominal discomfort and constipation
Hypoxia requiring higher dose supplemental oxygen
Acute HFpEF, proBNP 2790
Hypotension
CAD
NSTEMI July 2022
s/p 3.5 mm x 22 mm Xience to prox RCA, 3.25 mm x 18 mm Xience to mid Circ into OM-2 and residual OM-1 stenosis 07/27/22
h/o PAD
h/o left subclavian stenosis
Left carotid bruit
h/o lung cancer s/p lobectomy/chemoradiation 2013 followed by [facility]
Hypertension
COPD/prior tobacco dependence
CKD 3b, baseline Cre 1.4-1.6
h/o multiple allergies including IV dye allergy [no history of intubation]
Hypothyroidism
Echo 10/27/2022: EF 55 to 60%, mild to moderate TR with PAP 70 mmHg.
Echo 07/27/22: EF 60-65%, mildly dilated LA, mild MR, mild aortic regurgitation, mild to mod TR
Cardiac catheterization 07/27/2022: LM: Normal. LAD: LI: Left circumflex: 90% s/p 3.25 mm Xience to mid Circ into OM. RCA: Tandem 50% and 80% proximal RCA stenosis, status post 3.5 x 22 mm Xience MING
Plan:
-Presented with worsening SOB and increased supplemental O2 demand. Admitted with COPD and heart failure exacerbation.
-She was started on PO Edecrin as she has a h/o intolerance/allergy to lasix. Details unknown.
-Edecrin dose increased to 25mg BID 07/11, however she notes no improvement in her breathing.
-Could consider a dose of IV Edecrin, however creat has been rising. Up to 1.7 on 07/12. Refused AM labs 07/13.
-Continue management of COPD exacerbation per pulm.
-Continue Plavix, Toprol, and atorvastatin. h/o PCI 07/2022.
-Amlodipine remains on hold w/ hypotension.
-On 10L midflow NC. Wean as able.
HPI 07/10/2024: Lelo has a history of lung cancer status post lobectomy followed at [facility] 2013 in remission, COPD on chronic supplemental oxygen, hypothyroidism, CKD, htn and CAD s/p NSTEMI w/ RCA MING, mid circumflex MING July 2022, PAD
with left subclavian stenosis, who presents to emergency department 07/10/2024 with worsening shortness of breath with increased supplemental oxygen demand. Patient also notes UTI symptoms and was found to have UTI on home test purchased at local
pharmacy . She has received 2 doses of Bactrim. Patient was found to be hypoxic in emergency department with pulse oximetry in the mid 80s on 3 L. Oxygenation improved on 6 L via nasal cannula to the mid 90s. Hemoglobin found to be 8.5 in
emergency department, D-dimer 0.61. BUN 19 creatinine 1.4, proBNP 2790. Small right pleural effusion noted with probable atelectasis. Bibasilar interstitial thickening which may represent pulmonary vascular congestion and or pneumonitis. CT of
abdomen/pelvis shows small bilateral pleural effusions with suspected pulmonary edema. There is lumbar compression fraction likely acute/subacute. EKG showed sinus rhythm without ischemic changes. Troponin was negative. UA pending. Initial
blood pressure found to be mildly hypotensive with systolic readings in the low to mid 90s/60's. Cardiology being asked to see patient for shortness of breath concern for heart failure.
Progress Note - Medical Scientist
Subjective
Date of Service: July 13, 2024
Reports she feels poorly w/ ongoing SOB.
Objective
Labs:
Labs
Hgb 8.8 g/dL (12.0-16.0) L 07/12/24 07:20
Hct 27.6 % (37.0-47.0) L 07/12/24 07:20
Plt Count 208 10^3/uL (130-400) D 07/12/24 07:20
Sodium 139 mmol/L (135-145) 07/12/24 07:20
Potassium 4.0 mmol/L (3.5-5.1) 07/12/24 07:20
BUN 26 mg/dl (7-17) H 07/12/24 07:20
Creatinine 1.7 mg/dL (0.6-1.0) H 07/12/24 07:20
Glucose 118 mg/dl (70-99) H 07/12/24 07:20
Troponins
07/10/24
11:20
Troponin I < 0.012
Vital Signs and I&O:
Vital Signs
Temp Pulse Resp BP Pulse Ox
98.5 F 86 16 92/64 97
07/13/24 07:25 07/13/24 07:28 07/13/24 07:28 07/13/24 03:37 07/13/24 07:28
Vital Signs
Temp Pulse Resp BP Pulse Ox
98.5 F 86 16 92/64 97
07/13/24 07:25 07/13/24 07:28 07/13/24 07:28 07/13/24 03:37 07/13/24 07:28
Intake & Output
07/11/24 07/12/24 07/13/24 07/14/24
06:59 06:59 06:59 06:59
Intake Total 1720 / 1720 1320 / 1320 720 / 720
Output Total 600 / 600 550 / 550
Balance 1720 / 1720 720 / 720 170 / 170
Physical Exam
Physical Exam
GEN: No distress, awake, lying in bed.
HEENT: supple, anicteric, mmm
LUNGS: scattered wheezes
CV: Reg, S1/S2, 1/6 syst LSB, no gallop
EXT: No clubbing, cyanosis, or edema
NEURO: Gross non-focal
SKIN: Warm, dry, no rash
[2024-07-13] MEDS: MUCINEX 1200 MG PO ×2 (10:40→22:27)
[2024-07-13] MEDS: EDECRIN 25 MG PO ×2 (10:40→22:26)
[2024-07-13] MEDS: DELTASONE 20 MG PO (10:40)
--- NOTE | 2024-07-13 10:40 | PTCARENOTE ---
Pt family at bedside, pt more cooperative and oriented. Willing to have blood work and cardiac testing done. Meds taken without difficulty.
[2024-07-13] MEDS: LOW STRENGTH ASPIRIN 81 MG PO (10:41)
[2024-07-13] MEDS: TYLENOL 1000 MG PO ×3 (10:41→22:27)
[2024-07-13] MEDS: PROTONIX 40 MG PO (10:41)
[2024-07-13] MEDS: TOPROL XL 25 MG PO (10:41)
[2024-07-13] MEDS: LIDOCAINE 4% PATCH 1 PATCH TOPICAL (10:41)
[2024-07-13] MEDS: HEPARIN 5000 UNITS SC (10:41)
--- NOTE | 2024-07-13 11:21 | PN.CDI ---
CDI
- -
CDI:
Physician Documentation Request
Admit Date: 07/10/24 16:00
Dear Doctor Debra,
Please review the following and provide your response in the progress notes.
Clinical Indicators:
- 07/12 PN 'acute on chronic HFpEF'
- 07/12 Cardiology 'Acute heart failure with preserved ejection fraction'
- 07/10 probNP 2790 - No prior proBNP
- No pmh CHF
Please provide further specificity regarding the most likely acuity of CHF you are evaluating, treating or monitoring.
Acute HFpEF
Acute on chronic HFpEF
Other (please specify)
Use of terms such as suspected, likely, concern for, or probable (associated with a specific diagnosis that is being evaluated, monitored, or treated as if it exists) are acceptable and can be coded in the inpatient setting, when documented at the
time of discharge.
Thank you,
Erwin Baker RN
CDI Specialist
Please use your independent medical judgment in providing your response.
[2024-07-13 11:45] VITALS: BP 90/55
--- NOTE | 2024-07-13 11:51 | W.PN.HOSP.TC ---
Addendum entered and electronically signed by Que Richardson MD 07/13/24 13:32:
Palliative care consulted
Original Note:
Today's Communication/Plan
-
continue oral steroids
follow labs; consider IV Edecrin per Cards
Echo, venous dopplers
PT/OT
home O2 eval in AM
Assessment / Plan
Assessment / Plan
Assessment:
Acute on chronic hypoxic respiratory failure
- on 3L baseline, currently 8L
- wean O2 as able to baseline as treatment continues
Acute COPD Exacerbation
Hx of Right sided lobectomy for History of lung cancer status post lobectomy/chemoradiation 2013 followed by [facility])
- CXR: Small right pleural effusion with associated probable atelectasis. Bibasilar interstitial thickening may reflect pulmonary vascular congestion and/or pneumonitis
- COVID/Flu negative
- continue PO steroids
- ATC and prn nebs
- mucolytics, IS, Acapella
- Pulmonary following
- ST eval: continue dysphagia diet
acute HFpEF
- Sulfa allergy noted; started on Edecrin by Cards; s/p 1 dose IV 07/11. Continue PO meds and monitor BMP.
- monitor I/Os, weights, lytes
Elevated D-dimer, chronic per daughter (an RN)
- did not tolerate V/Q attempt previously
- cannot have CT with CKD
- check venous dopplers, d/w pulmonary
Essential HTN
- continue BB
- hold CCB
CAD (hx of NSTEMI with stenting)
- continue ASA/BB
L3 compression fracture likely acute/subacute
- CT: Moderate L3 compression fracture likely acute/subacute otherwise no abnormality identified in the abdomen or pelvis
- continue pain control
- PT/OT
History of left subclavian stenosis
Left carotid bruit
CKD 3b, baseline Cre 1.4-1.6
- monitor BMP
History of multiple allergies including IV dye allergy [no history of intubation]
Hypothyroidism - continue replacement
Recent UTI - received Bactrim (developed rash ?allergy)
- UA here clear
Chronic anemia�normocytic
- iron deficiency
- s/p Ferrlecit course
Former smoker
- Patient believes three-quarter pack per year stopped age 59 which was 24 years ago
Chronic ambulatory dysfunction
- Uses walker or wheelchair at baseline
- PT/OT
GERD - PPI added
DVT ppx: SC Heparin
Code: DNR
Anticipated Discharge: > 48 hours
Subjective/Interval History
-
Date of Service: July 13, 2024
feels less labored with her breathing today
feels more comfortable on 8L NC
Objective Data
-
Labs:
Laboratory Results
07/13/24
06:00
WBC Pending
Hgb Pending
Hct Pending
Plt Count Pending
Sodium Pending
Potassium Pending
Chloride Pending
Carbon Dioxide Pending
BUN Pending
Creatinine Pending
Glucose Pending
Calcium Pending
Total Bilirubin Pending
AST Pending
ALT Pending
Alkaline Phosphatase Pending
Vital Signs:
Vital Signs
Temp Pulse Resp BP Pulse Ox
97.3 F 85 18 90/55 94
07/13/24 11:45 07/13/24 11:45 07/13/24 11:45 07/13/24 11:45 07/13/24 11:45
I&O
07/12/24 07/13/24 07/14/24
06:59 06:59 06:59
Intake Total 1320 / 1320 720 / 720
Output Total 600 / 600 550 / 550
Balance 720 / 720 170 / 170
Physical Exam
-
General: No Apparent Distress
HEENT: Normocephalic and Atraumatic
Respiratory: Clear to Auscultation and Decreased Breath Sounds
Cardiac: Regular Rhythm and S1/S2
GI: Soft
Neuro: AO x 3
Hematologic / Lymphatic: No Lymphadenopathy
Psych: Calm
Data Reviewed
-
Total Time Spent with Patient (in minutes): 45
Labs: Labs Reviewed by me
--- NOTE | 2024-07-13 12:32 | CM ---
Patient seen bedside.
Patient continues with increased oxygen needs, on 8 liters.
Patient confused on medsittter.
Patients spouse in room with patient.
Patient lives with spouse.
Continue to follow PT recommendations for disposition.
Plan: home vs skilled, await PT recommendations.
--- NOTE | 2024-07-13 13:05 | W.PN.PUL3 ---
Today's Communication / Plan
-
Continue nebulizers: Pulmicort/DuoNebs on upon discharge can be transition to usual regimen.
Prednisone low-dose 20 mg for 3 days and then decrease to 10 mg for additional 3 days and then stop.
Oxygen supplementation to maintain pulse ox above 90%. Likely needs more than 3 L at baseline has been an ongoing issue in the outpatient setting will titrate prior to discharge.
Monitor off antibiotics
Diuretics as able
Lower extremity Dopplers pending
Echocardiogram pending
Analgesia per primary team for her back pain.
Incentive spirometry as able.
If no acute abnormalities on echo and lower extremity Dopplers agree with hopefully discharge planning soon.
Outpatient follow-up at [facility] with Dr. Huffman after discharge.
Assessment
-
83-year-old woman with past medical history noted, admitted with shortness of breath and worsening oxygenation. We were consulted on 07/11/2024 for evaluation.
Acute on chronic respiratory insufficiency currently requiring 6 L
Acute exacerbation of COPD
Chest x-ray 07/10/2024: Reviewed small right pleural effusion with associated atelectasis. Bibasilar interstitial thickening unclear etiology
CT abdomen pelvis 07/10/2024: Lung cuts reviewed: Small bilateral pleural effusions. Moderate L3 compression fracture. Possible pulmonary edema component. Postinflammatory scarring on the right.(Pleural effusions new compared to February 2024)
Negative influenza/negative COVID
Increased proBNP 2790/negative troponin.
Mildly elevated D-dimer 0.61
Suspect acute on chronic heart failure with preserved ejection fraction.
Echocardiogram 07/27/2022: Reviewed, showed normal LVEF. Normal diastolic dysfunction. Mild MR. Mild AR. Mild to moderate TR. Mild pulmonary regurgitation.
EKG 07/10/2024: Reviewed sinus rhythm/nonspecific change in ST segment inferior leads. Nonspecific T wave abnormality inferior leads.
Acute on chronic back pain L3 compression fracture.
Chronic kidney disease
Conditions present prior admission:
Former smoker quit 24 years ago
Coronary artery disease status post RCA stent in July 2022 at [facility]
Hypertension
Left subclavian stenosis
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
History of right lobectomy for lung cancer
Hypothyroidism
Ambulatory dysfunction ambulates with a walker and a cane
Assessment and plan:
No significant change in respiratory status 07/13/2024
At this time, respiratory status remains tenuous with 8 to 10 L requirement although patient appears to be comfortable.
On further questioning, family members at bedside (children) states that saturation goes down routinely in the 70s at home. admitted that saturation goes down to high 70s with simple ambulation on 3L . According to daughter, this has been
a chronic problem.
Will need to titrate oxygen prior to discharge, likely requires higher amounts of oxygen at baseline than reported.
Will attempt to maintain pulse ox above 88%.
-
Weak cough on exam
No wheezing today
Chest x-ray -with no acute findings, persistent bilateral interstitial changes and a small bilateral pleural effusions.
Echocardiogram-pending. Prior echocardiogram from 2022 reveals PA pressure of 40
-
Dr. Vanegas: Reviewed with family at bedside etiologies to consider with sudden onset increased oxygen requirement and wheezing, now improved. Heart failure, aspiration, less likely thromboembolic disease (unless hypoxia persists)
CT abdomen, lung bases with interstitial process. Minimal pleural effusion. Difficult to distinguish between interstitial disease and vascular congestion
-
From the COPD perspective: Not significantly bronchospastic on exam 07/13/2024.
Will continue nebulized therapy
Ipratropium/albuterol 4 times daily
Pulmicort twice daily
Status post IV steroids.(Will try to minimize-has lumbar fracture with acute pain)
Transitioned to oral prednisone 07/13- 20 mg for 3 days and decrease to 10 mg for additional 3 days and then stop.
Mucolytic's
Incentive spirometry
Acapella device attempted the patient states that she is not producing any phlegm.
-
Follows up with Dr. Huffman at [facility]. On nebulizers with formoterol/Yupelri. She is a poor historian, and children at bedside helping to fill in the gaps.
Apparently she has a new nodule in the lung and recurrent cancer is being considered per family.
-
Slightly increased D-dimer: Doubt thromboembolic event.
We have other reasons to explain her hypoxemia.
Hold off on CAT scan of the chest for now. Later chest x-ray appears to be stable.
Lower extremities without swelling
Check lower extremity Doppler bilaterally
Do not think VQ scan would be helpful given significant baseline interstitial process, underlying lung disease, prior lung surgery
-
Did receive a dose of ceftriaxone currently on hold-no signs of infection.
Continue to observe off antibiotics, pulmonary infection not highly suspected
Unfortunately, patient not receiving Lasix due to unknown reaction to Lasix
Ethacrynic acid has been ordered but this is not very effective-patient refused labs this morning currently on hold as creatinine was rising.
-
Usually on 3 L at home. Oxygenation issues at home that are chronic noted.
Back pain due to vertebral fracture-noted on CAT scan. This is patient's primary complaint
Analgesia per primary team. Currently with a lidocaine patch.
Per she has seen a pain doctor in the past and she has been placed on narcotics as needed in the outpatient setting.
Analgesia per primary team.
DVT prophylaxis with heparin subcu.
Now DNR status updated during this admission
We will follow up
Data reviewed including:
CT chest 02/28/2018: No evidence for acute pathology. Postoperative changes consistent with right upper lobectomy with anterior and lateral right upper rib deformity consistent with prior surgical intervention. Mild pleural-parenchymal scarring of
the right apex and anterior right lung base. 3 mm subpleural pulmonary nodule left lower lobe. Mild emphysema. Atherosclerosis.
Subjective Data
-
Date of Service:
Date of Service: July 13, 2024
Chief Complaint: Pulmonary Follow Up (Hypoxemic respiratory failure)
Subjective:
Continues to report dyspnea.
No significant phlegm production
Refuse laboratories this morning.
Review of Systems
Cardiopulmonary: Dyspnea, Cough and Wheezing (n)
GI: Abdominal Pain (n)
Neuro: Headache (n)
Objective Data
Data Reviewed
Vital Signs / I&O / Oxygen:
Vital Signs
Temp Pulse Resp BP Pulse Ox
97.3 F 85 18 90/55 94
07/13/24 11:45 07/13/24 11:45 07/13/24 11:45 07/13/24 11:45 07/13/24 11:45
Intake and Output
07/12/24 07/13/24 07/14/24
06:59 06:59 06:59
Intake Total 1320 / 1320 720 / 720
Output Total 600 / 600 550 / 550
Balance 720 / 720 170 / 170
SaO2 94
Nasal Cannula flow liters per 10
minute
Physical Exam
General: Comfortable
HEENT: Normocephalic and Anicteric
Cardiovascular: S1-S2, Regular Rhythm, Murmur (n), Rub (n) and Peripheral Edema (n)
Respiratory: Wheeze (n), Crackles (Minimal at base), Rhonchi (n), Non-Labored Respirations, Stridor (n) and Other (Decreased breath sounds throughout)
GI: Soft, Distended (Slightly distended) and Non Tender
Neurology: Awake, Alert and No Motor Deficits (Able to sit up with minimal assistance)
Skin: Cyanosis (n), Jaundice (n) and Rash (n)
Labs/Micro/Reports
Microbiology
07/10/24 15:43 Nasal Swab Influenza Types A & B (MICKEY) - Final
Negative for Influenza A & B, NAAT
Negative results must be combined with clinical observations
and patient history.
Nucleic Acid Amplification test (NAAT)performed on the
[employer] platform.
[2024-07-13 13:27] LABS: % Basophils 0.2 % (0-2); % Eosinophils 0.4 % (0-6); % Immature Granulocytes 1.6 % (0-0.5); % Lymphocytes 18.6 % (20.5-51.1); % Monocytes 9.7 % (1.7-9.3); % Neutrophils 69.5 % (42.2-75.2); Absolute Eosinophils 0.1 10^3/uL (0-0.7); Absolute Immature Granulocytes 0.3 10^3/uL (0-0.05); Absolute Lymphocytes 2.9 10^3/uL (1.2-3.4); Absolute Monocytes 1.5 10^3/uL (0.1-0.6); Absolute Neutrophils 10.9 10^3/uL (1.4-6.5); Hematocrit 24.3 % (37.0-47.0); Hemoglobin 7.9 g/dL (12.0-16.0); Mean Corp Hgb Conc. 32.5 g/dL (33.0-37.0); Mean Corpuscular Hgb 26.2 pg (27.0-31.0); Mean Corpuscular Volume 80.5 fL (81.0-99.0); Mean Platelet Volume 9.7 fL (7.4-10.4); Nucleated Red Blood Cells % 0.3 %; Platelet Count 216 10^3/uL (130-400); Red Blood Cell Count 3.02 10^6/uL (4.20-5.40); Red Cell Dist. Width 15.5 % (11.5-14.5); White Blood Cell Count 15.7 10^3/uL (4.8-10.8)
[2024-07-13 13:54] LABS: ALT (SGPT) 14 U/L (0-35); AST (SGOT) 25 U/L (14-36); Albumin 3.7 g/dl (3.5-5.0); Alkaline Phosphatase 62 U/L (38-126); Blood Urea Nitrogen 37 mg/dl (7-17); Carbon Dioxide 20 mmol/L (22-30); Chloride 106 mmol/L (98-107); Estimated Creatinine Clearance 20 ml/min; Glucose 76 mg/dl (70-99); Potassium 4.2 mmol/L (3.5-5.1); Sodium 138 mmol/L (135-145); Total Bilirubin 0.5 mg/dl (0.2-1.3); Total Protein 6.1 g/dl (6.3-8.2); eGFR 34.36
[2024-07-13] MEDS: FERRLECIT 110 MG IV (15:21)
[2024-07-13 15:40] VITALS: BP 135/63
[2024-07-13] MEDS: PLAVIX 75 MG PO (17:55)
[2024-07-13] MEDS: LIPITOR 40 MG PO (17:55)
[2024-07-13 19:43] VITALS: BP 100/59
[2024-07-13] MEDS: HEPARIN SC (21:50)
[2024-07-13 23:47] VITALS: BP 105/43
[2024-07-14] VITALS (8 sets, daily range): BP systolic 101–136; BP diastolic 50–61; PULSE 75–78; O2SAT 95–96; BMI 23.3
[2024-07-14] MEDS: NORCO 5/325 1 TABLET PO (01:52)
[2024-07-14] MEDS: SYNTHROID 25 MCG PO (05:52)
[2024-07-14] MEDS: PULMICORT 0.5 MG INH ×2 (07:41→20:01)
[2024-07-14] MEDS: DUONEB 3 ML INH ×3 (07:41→15:33)
[2024-07-14] MEDS: MUCINEX 1200 MG PO ×2 (09:09→21:53)
[2024-07-14] MEDS: PROTONIX 40 MG PO (09:09)
[2024-07-14] MEDS: EDECRIN 25 MG PO (09:10)
[2024-07-14] MEDS: DELTASONE 20 MG PO (09:10)
[2024-07-14] MEDS: TOPROL XL 25 MG PO (09:10)
[2024-07-14] MEDS: LOW STRENGTH ASPIRIN 81 MG PO (09:10)
[2024-07-14] MEDS: LIDOCAINE 4% PATCH 1 PATCH TOPICAL (09:13)
[2024-07-14] MEDS: TYLENOL PO (09:28)
[2024-07-14] MEDS: HEPARIN 5000 UNITS SC (09:28)
--- NOTE | 2024-07-14 09:36 | W.PN.CARDCBS ---
Addendum entered and electronically signed by Arlin Polk DO 07/14/24 12:18:
I saw and examined the patient.
The Insulation Cupola Charger's note was reviewed and I agree with the note.
Comment: Patient was seen and examined. She was sitting out of bed to chair and respiratory had reduced her oxygen to 4 L. Multiple family members were around including her and daughter. Reviewed hospital course, echocardiogram and lab
work. Confusion/delirium has improved and she is now at her baseline, pleasant and calm. Patient reports improved shortness of breath. No chest pain or pressure.
GEN: Pleasant, calm on 4 L nasal cannula satting 100%. Sitting out of bed to chair.
HEENT:mmm
LUNGS: CTA b/l, no wheezes/rales
CV: Reg, S1/S2, 07/24 SM
EXT: No edema
Plan:
Admitted with COPD and HFpEF Exacerbation
-Initial proBNP 2790; negative CTNI
-Repeat proBNP slightly increased from initial however clinically appears more euvolemic. Creatinine is increased
-Would continue p.o. edecrin with history of Lasix allergy/rash. Was not on diuretics at time of admission.
-Will reduce edecrin to 25 mg once daily
-Closely monitor renal function/electrolytes
-2D echocardiogram with normal biventricular size and function but with grade 2 diastolic dysfunction, mild to moderate TR and pulmonary hypertension suggested with RVSP estimated 50-55 mmHg
-Could consider addition of SGLT2 inhibitor but will hold for now given worsening renal insufficiency. Consider as an outpatient.
-Recommended patient have follow-up with her outpatient compound coating machine offbearer at [place] within 1 week. Family to make appointment
Acute exacerbation of COPD/ Chronic hypoxia on home O2/History of lung cancer status post right lobectomy followed at [facility]
-Pulmonary consult reviewed
-Oxygen supplementation almost at baseline now 4 L with 100% oxygenation per respiratory
-Continue BDA. Transitioned to oral Prednisone
-Speech therapy ongoing; aspiration precautions
Coronary artery disease status post RCA stent in July 2022 at [facility]; History of left subclavian stenosis
-Continue Plavix, Toprol, and atorvastatin. h/o PCI 07/2022.
Chronic renal insufficiency with baseline creatinine 1.4�1.6
-Creatinine slightly worse today, 1.8 after diuresis attempts. Monitor closely
Discussed with primary service and family members
Anticipate discharge tomorrow if renal function/oxygen requirement stable. Please recall, if needed
DNR/DNI
Palliative care consult per primary which I think is reasonable
Original Note:
Today's Communication / Plan
-
Continue PO Edecrin
Continue management of COPD per pulm
Will arrange follow up
Impression / Plan
-
Primary care physician: Dr. Elie Vuong
Cinder Man: Previously followed with Dr. Clint Pinon of [facility] last seen in 04/2023; more recently saw a compound coating machine offbearer in [place] but does not recall his name.
Impression:
Presented w/ SOB, UTI symptoms, abdominal discomfort and constipation
Hypoxia requiring higher dose supplemental oxygen
Acute HFpEF, proBNP 2790
Hypotension
CAD
NSTEMI July 2022
s/p 3.5 mm x 22 mm Xience to prox RCA, 3.25 mm x 18 mm Xience to mid Circ into OM-2 and residual OM-1 stenosis 07/27/22
h/o PAD
h/o left subclavian stenosis
Left carotid bruit
h/o lung cancer s/p lobectomy/chemoradiation 2013 followed by [facility] [facility]
Hypertension
COPD/prior tobacco dependence
CKD 3b, baseline Cre 1.4-1.6
h/o multiple allergies including IV dye allergy [no history of intubation]
Hypothyroidism
Echo 10/27/2022: EF 55 to 60%, mild to moderate TR with PAP 70 mmHg.
Echo 07/27/22: EF 60-65%, mildly dilated LA, mild MR, mild aortic regurgitation, mild to mod TR
Cardiac catheterization 07/27/2022: LM: Normal. LAD: LI: Left circumflex: 90% s/p 3.25 mm Xience to mid Circ into OM. RCA: Tandem 50% and 80% proximal RCA stenosis, status post 3.5 x 22 mm Xience MING
Plan:
-Presented with worsening SOB and increased O2 requirements. Admitted with COPD exacerbation, and also concern for acute heart failure.
-Started on PO Edecrin due to h/o intolerance/allergy to lasix. Details unknown.
-Weight has been overall stable. Weight 07/14 119lbs.
-Creat up to 1.8 07/14, however proBNP also elevated at 3600. Will continue PO Edecrin 25mg BID.
-Suspect etiology of SOB more pulm in nature. Continue management of COPD per pulm.
-Continue Plavix, Toprol, and atorvastatin. h/o PCI 07/2022.
-Amlodipine remains on hold w/ intermittent hypotension noted.
-On 8L NC 07/14, continue to wean as able.
-Will arrange follow up
HPI 07/10/2024: Lelo has a history of lung cancer status post lobectomy followed at [facility] 2013 in remission, COPD on chronic supplemental oxygen, hypothyroidism, CKD, htn and CAD s/p NSTEMI w/ RCA MING, mid circumflex MING July 2022, PAD
with left subclavian stenosis, who presents to emergency department 07/10/2024 with worsening shortness of breath with increased supplemental oxygen demand. Patient also notes UTI symptoms and was found to have UTI on home test purchased at local
pharmacy . She has received 2 doses of Bactrim. Patient was found to be hypoxic in emergency department with pulse oximetry in the mid 80s on 3 L. Oxygenation improved on 6 L via nasal cannula to the mid 90s. Hemoglobin found to be 8.5 in
emergency department, D-dimer 0.61. BUN 19 creatinine 1.4, proBNP 2790. Small right pleural effusion noted with probable atelectasis. Bibasilar interstitial thickening which may represent pulmonary vascular congestion and or pneumonitis. CT of
abdomen/pelvis shows small bilateral pleural effusions with suspected pulmonary edema. There is lumbar compression fraction likely acute/subacute. EKG showed sinus rhythm without ischemic changes. Troponin was negative. UA pending. Initial
blood pressure found to be mildly hypotensive with systolic readings in the low to mid 90s/60's. Cardiology being asked to see patient for shortness of breath concern for heart failure.
Progress Note - Cinder Man
Subjective
Date of Service: July 14, 2024
Reports she is feeling better today with improvement in her breathing.
Objective
Labs:
Labs
Hgb 7.9 g/dL (12.0-16.0) L 07/13/24 13:18
Hct 24.3 % (37.0-47.0) L 07/13/24 13:18
Plt Count 216 10^3/uL (130-400) 07/13/24 13:18
Sodium 138 mmol/L (135-145) 07/13/24 13:18
Potassium 4.2 mmol/L (3.5-5.1) 07/13/24 13:18
BUN 37 mg/dl (7-17) H 07/13/24 13:18
Creatinine 1.5 mg/dL (0.6-1.0) H 07/13/24 13:18
Glucose 76 mg/dl (70-99) 07/13/24 13:18
Vital Signs and I&O:
Vital Signs
Temp Pulse Resp BP Pulse Ox
98.3 F 77 16 130/61 100
07/14/24 07:00 07/14/24 07:44 07/14/24 07:44 07/14/24 07:00 07/14/24 07:44
Vital Signs
Temp Pulse Resp BP Pulse Ox
98.3 F 77 16 130/61 100
07/14/24 07:00 07/14/24 07:44 07/14/24 07:44 07/14/24 07:00 07/14/24 07:44
Intake & Output
12/25/24 12/26/24 12/27/24 12/28/24
06:59 06:59 06:59 06:59
Intake Total 1320 / 1320 720 / 720 1200 / 1200
Output Total 600 / 600 550 / 550 100 / 100
Balance 720 / 720 170 / 170 1100 / 1100
Physical Exam
Physical Exam
GEN: No distress, awake, sitting up in chair
HEENT: supple, anicteric, mmm
LUNGS: CTA b/l, no wheezes/rales
CV: Reg, S1/S2, 1/6 syst LSB, no gallop
EXT: No clubbing, cyanosis, or edema
NEURO: Gross non-focal
SKIN: Warm, dry, no rash
[2024-07-14 10:48] LABS: Hematocrit 28.4 % (37.0-47.0); Hemoglobin 8.6 g/dL (12.0-16.0); Mean Corp Hgb Conc. 30.3 g/dL (33.0-37.0); Mean Corpuscular Hgb 25.7 pg (27.0-31.0); Mean Platelet Volume 9.8 fL (7.4-10.4); Platelet Count 220 10^3/uL (130-400); Red Blood Cell Count 3.34 10^6/uL (4.20-5.40); Red Cell Dist. Width 15.7 % (11.5-14.5); White Blood Cell Count 16.1 10^3/uL (4.8-10.8)
[2024-07-14 11:01] LABS: Blood Urea Nitrogen 39 mg/dl (7-17); Calcium 9.2 mg/dl (8.4-10.2); Carbon Dioxide 24 mmol/L (22-30); Chloride 102 mmol/L (98-107); Estimated Creatinine Clearance 17 ml/min; Glucose 140 mg/dl (70-99); Potassium 3.6 mmol/L (3.5-5.1); Sodium 136 mmol/L (135-145); eGFR 27.61
[2024-07-14 11:11] LABS: NT-proBNP 3600 pg/ml
--- NOTE | 2024-07-14 12:32 | W.PN.HOSP.TC ---
Today's Communication/Plan
-
monitor O2 needs today and renal function tomorrow
F/U palliative care consult
awaiting PT Eval
possible DC tomorrow
Assessment / Plan
Assessment / Plan
Assessment:
Acute on chronic hypoxic respiratory failure
- on 3L baseline, oxygen weaned this morning to 4L - monitor
Acute COPD Exacerbation
Hx of Right sided lobectomy for History of lung cancer status post lobectomy/chemoradiation 2013 followed by [facility])
- CXR: Small right pleural effusion with associated probable atelectasis. Bibasilar interstitial thickening may reflect pulmonary vascular congestion and/or pneumonitis
- COVID/Flu negative
- continue PO steroids
- ATC and prn nebs
- mucolytics, IS, Acapella
- Pulmonary following
- ST eval: continue dysphagia diet
acute HFpEF
- Sulfa allergy noted; started on Edecrin by Cards; s/p 1 dose IV 07/11. Continue PO meds and monitor BMP.
- monitor I/Os, weights, lytes
Elevated D-dimer, chronic per daughter (an RN)
- did not tolerate V/Q attempt previously
- cannot have CT with CKD
- check venous dopplers - no e/o DVT
Essential HTN
- continue BB
- hold CCB
CAD (hx of NSTEMI with stenting)
- continue ASA/BB
L3 compression fracture likely acute/subacute
- CT: Moderate L3 compression fracture likely acute/subacute otherwise no abnormality identified in the abdomen or pelvis
- continue pain control
- PT/OT
History of left subclavian stenosis
Left carotid bruit
CKD 3b, baseline Cre 1.4-1.6
- monitor BMP
History of multiple allergies including IV dye allergy [no history of intubation]
Hypothyroidism - continue replacement
Recent UTI - received Bactrim (developed rash ?allergy)
- UA here clear
Chronic anemia�normocytic
- iron deficiency
- s/p Ferrlecit course
Former smoker
- Patient believes three-quarter pack per year stopped age 59 which was 24 years ago
Chronic ambulatory dysfunction
- Uses walker or wheelchair at baseline
- PT/OT
GERD - PPI added
DVT ppx: SC Heparin
Code: DNR
Anticipated Discharge: 24 - 48 hours
Subjective/Interval History
-
Date of Service: July 14, 2024
feeling better
O2 weaned down
Objective Data
-
Labs:
Laboratory Results
07/14/24
10:32
WBC 16.1 H
Hgb 8.6 L
Hct 28.4 L
Plt Count 220
Sodium 136
Potassium 3.6
Chloride 102
Carbon Dioxide 24
BUN 39 H
Creatinine 1.8 H
Glucose 140 H
Calcium 9.2
Vital Signs:
Vital Signs
Temp Pulse Resp BP Pulse Ox
98.3 F 69 16 130/61 100
07/14/24 07:00 07/14/24 11:38 07/14/24 11:38 07/14/24 07:00 07/14/24 11:38
I&O
07/13/24 07/14/24 07/15/24
06:59 06:59 06:59
Intake Total 720 / 720 1200 / 1200
Output Total 550 / 550 100 / 100
Balance 170 / 170 1100 / 1100
Review of Systems
-
History Source: Patient
All other systems: Reviewed and negative
Physical Exam
-
General: No Apparent Distress
HEENT: Normocephalic and Atraumatic
Respiratory: Clear to Auscultation and Decreased Breath Sounds
Cardiac: Regular Rhythm and S1/S2
GI: Soft
Neuro: AO x 3
Hematologic / Lymphatic: No Lymphadenopathy
Psych: Calm
Data Reviewed
-
Diagnostic Radiology: Report Reviewed by me
Labs: Labs Reviewed by me
--- NOTE | 2024-07-14 13:43 | W.CON.PAL ---
Consultation
-
Date/Time Consultation Requested: 07/13
Date/Time Consultation Performed: 07/14
Performing Provider: Carlyn Clayton
Reason for Consult: Advanced Care Planning
Primary Diagnosis: advanced COPD
Reason for Admission
Illness Course/HPI
83 year old F with PMH of advanced COPD, R lobectomy 2/2 cancer, CHF admitted with shortness of breath. Being treated for COPD exacerbation.
Previously on 3L at home, now with increased 02 needs on 4L. Was requiring 8-10L initially in hospitalization. Pulm following - recommend outpatient follow up and increase in baseline 02 to 4L. Cardiology following - recommend diuresis. Imaging with
small b/l effusions. Also with L3 compression fracture. Seens interventional pain physician - has had trigger point injections in the past per daughter. Has PRN vicodin at home.
Seen at bedside with family present including daughter Eli who is an RN. Patient appears comfortable, no complaints. Getting relief with lidocaine patch to back. Sitting up eating lunch. She lives with her . Children have some safety
concerns about their parents home, looking into hiring aide support for them. Will ask CM to provide list of agencies for this. Patient remains independent with personal care but with increased difficulty with steps due to progression of lung
disease, frailty.
Pain & Symptom Assessment
Patient Symptoms
Patient Symptoms: Pain
[place] Symptom Scale 0=none, 10=worst
Pain: 3
Shortness of Breath: 2
Anxiety: 0
Objective Data
-
Objective Data:
Vital Signs
Temp Pulse Resp BP Pulse Ox
98.3 F 69 16 115/58 100
07/14/24 11:00 07/14/24 11:38 07/14/24 11:38 07/14/24 11:00 07/14/24 11:38
Laboratory Results
07/14/24 10:32
07/14/24 10:32
Total Protein 6.1 g/dl (6.3-8.2) L 07/13/24 13:18
Albumin 3.7 g/dl (3.5-5.0) 07/13/24 13:18
Urine Color Yellow 07/10/24 13:55
Urine Clarity Clear (Clear) 07/10/24 13:55
Urine pH 6.0 (5.0-9.0) 07/10/24 13:55
Ur Specific [place] 1.015 (<1.030) 07/10/24 13:55
Urine Ketones Negative (Negative) 07/10/24 13:55
Urine Bilirubin Negative (Negative) 07/10/24 13:55
Palliative Performance Scale
Palliative Performance Scale:
PPS Level Ambulation Activity & Evidence of Disease Self Care Intake Conscious Level
100% Full Normal Activity & Work; Full Intake Full
No Evidence of Disease
90% Full Normal Activity & Work; Full Normal Full
Some Evidence of Disease
80% Full Normal Activity with Effort Full Normal or Full
Some Evidence of Disease Reduced
70% Reduced Unable Normal Job/Work Full Normal or Full
Significant Disease Reduced
60% Reduced Unable Hobby/Housework Occasional Normal or Full or Confusion
Significant Disease Assistance Reduced
50% Mainly Sit/Lie Unable to do Any Work Considerable Normal or Full or Confusion
Extensive Disease Assistance Req'd Reduced
40% Mainly in Bed Unable to do Most Activity Mainly Assistance Normal or Full or Drowsy;
Extensive Disease Reduced +/- Confusion
30% Totally Bed Unable to do Any Activity Total Care Normal or Full or Drowsy;
Bound Extensive Disease Reduced +/- Confusion
20% Totally Bed Bound Unable to do Any Activity Total Care Minimal to Full or Drowsy;
Extensive Disease Sips +/- Confusion
10% Totally Bed Bound Unable to do Any Activity Total Care Mouth Care Drowsy or Coma;
Extensive Disease Only +/- Confusion
0%
PPS Score Level:
Palliative Performance Score Response
Palliative Performance Score Response: 60%
Physical Exam
-
General: No Apparent Distress, Comfortable and Appears Chronically Ill
HEENT: Normocephalic
Respiratory: Decreased Breath Sounds
Cardiac: Regular Rhythm
Peripheral Vascular: No Edema
GI: Soft and Normal Bowel Sounds
Musculoskeletal: Normal Gait & Station
Skin: Warm
Neuro: AO x 3
Psych: Calm
Assessment / Plan
-
Assessment/Plan:
83 year old F with advanced COPD admitted with exacerbation.
Spoke with patient and family at bedside. Plan for likely short SNF stay before going back home. Family interested in outpatient services. Info provided and let them know to call us when patient is out of SNF so we can set up a home visit.
Patient with no unmanaged symptoms at this time. She is DNR/DNI.
Care Reviewed
Data Reviewed
Radiology procedure: Image Reviewed
Medical Tests: I reviewed
Reviewed with: Patient, Family and Physician
--- NOTE | 2024-07-14 14:51 | W.PN.PUL3 ---
Today's Communication / Plan
-
Prednisone taper 20 mg for 3 days and then 10 mg for 3 days and then stop
Continue nebulizers while in the hospital-can return to her usual nebulizer regimen upon discharge
Analgesia- much controlled.
Oral diuretics
Oxygen: Patient-back to baseline
Agree with discharge planning in 24 hours
Sign off.
Assessment
-
83-year-old woman with past medical history noted, admitted with shortness of breath and worsening oxygenation. We were consulted on 07/11/2024 for evaluation.
Acute on chronic respiratory insufficiency currently requiring 6 L
Acute exacerbation of COPD
Chest x-ray 07/10/2024:small right pleural effusion with associated atelectasis. Bibasilar interstitial thickening unclear etiology
CT abdomen pelvis 07/10/2024: Lung cuts reviewed: Small bilateral pleural effusions. Moderate L3 compression fracture. Possible pulmonary edema component. Postinflammatory scarring on the right.(Pleural effusions new compared to February 2024)
Negative influenza/negative COVID
Increased proBNP 2790/negative troponin.
Mildly elevated D-dimer 0.61
Suspect acute on chronic heart failure with preserved ejection fraction.
Echocardiogram 07/27/2022: Reviewed, showed normal LVEF. Normal diastolic dysfunction. Mild MR. Mild AR. Mild to moderate TR. Mild pulmonary regurgitation.
EKG 07/10/2024: Reviewed sinus rhythm/nonspecific change in ST segment inferior leads. Nonspecific T wave abnormality inferior leads.
Acute on chronic back pain L3 compression fracture.
Chronic kidney disease
Conditions present prior admission:
Former smoker quit 24 years ago
Coronary artery disease status post RCA stent in July 2022 at [facility]
Hypertension
Left subclavian stenosis
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
No PFT available.
History of right lobectomy for lung cancer
Hypothyroidism
Ambulatory dysfunction ambulates with a walker and a cane
Assessment and plan:
Overall slightly improved down to 4 L nasal cannula. This is her baseline.
It looks like at home she was having oxygen desaturations chronically. Oxygen will need to be titrated in the outpatient setting.
Instructed to maintain pulse ox above 90%.
Not significantly bronchospastic on exam-07/14/2024.
Chest x-ray -with no acute findings, persistent bilateral interstitial changes and a small bilateral pleural effusions.
Echocardiogram-07/13/2024 showed normal biventricular size and function with grade 2 diastolic dysfunction, mild to moderate TR, pulmonary hypertension systolic artery pressure 50 to 55 mmHg.
-
Dr. Vanegas: Reviewed with family at bedside etiologies to consider with sudden onset increased oxygen requirement and wheezing, now improved. Heart failure, aspiration, less likely thromboembolic disease (unless hypoxia persists)
CT abdomen, lung bases with interstitial process. Minimal pleural effusion. Difficult to distinguish between interstitial disease and vascular congestion
-
From the COPD perspective: Not significantly bronchospastic on exam 07/13/2024.
Continue nebulizer therapy while in the hospital.
Ipratropium/albuterol 4 times daily
Pulmicort twice daily
Status post IV steroids.(Will try to minimize-has lumbar fracture with acute pain)
Transitioned to oral prednisone 07/13- 20 mg for 3 days and decrease to 10 mg for additional 3 days and then stop.
Can return to her usual nebulizers upon discharge.
Mucolytic's
Incentive spirometry
Acapella device attempted the patient states that she is not producing any phlegm.
-
Follows up with Dr. Huffman at [facility]. On nebulizers with formoterol/Yupelri. She is a poor historian, and children at bedside helping to fill in the gaps.
Apparently she has a new nodule in the lung and recurrent cancer is being considered per family.
-
Slightly increased D-dimer: Doubt thromboembolic event.
We have other reasons to explain her hypoxemia.
Hold off on CAT scan of the chest for now. Later chest x-ray appears to be stable.
Negative lower extremity Dopplers.
Echocardiogram with normal RV function
Do not think VQ scan would be helpful given significant baseline interstitial process, underlying lung disease, prior lung surgery
-
Did receive a dose of ceftriaxone currently on hold-no signs of infection.
Continue to observe off antibiotics, pulmonary infection not highly suspected
Unfortunately, patient not receiving Lasix due to unknown reaction to Lasix.
Cardiology following
On oral Ethacrynic acid has been ordered but this is not very effective-patient refused labs this morning currently on hold as creatinine was rising.
Follow renal function and electrolytes.
Back pain due to vertebral fracture-noted on CAT scan.
Analgesia per primary team. Currently with a lidocaine patch.
Hydrocodone/APAP as needed
Per she has seen a pain doctor in the past and she has been placed on narcotics as needed in the outpatient setting.
Analgesia per primary team.
DVT prophylaxis with heparin subcu.
Now DNR status updated during this admission-will follow-up with palliative care in the outpatient setting
Agree with discharge planning in the next 24 hours
No additional recommendations from the pulmonary perspective.
Sign off
Follow-up with Dr. Huffman in the outpatient setting at [facility]. Family family will make appointment
Data reviewed including:
CT chest 02/28/2018: No evidence for acute pathology. Postoperative changes consistent with right upper lobectomy with anterior and lateral right upper rib deformity consistent with prior surgical intervention. Mild pleural-parenchymal scarring of
the right apex and anterior right lung base. 3 mm subpleural pulmonary nodule left lower lobe. Mild emphysema. Atherosclerosis.
Subjective Data
-
Date of Service:
Date of Service: July 14, 2024
Chief Complaint: Pulmonary Follow Up (Hypoxemic respiratory failure)
Subjective:
Slightly better
Back on usual 4 L
Delirium resolved
Pain is more manageable
Review of Systems
Cardiopulmonary: Dyspnea (improved)
GI: Abdominal Pain (n) and Nausea
Neuro: Headache (n)
Objective Data
Data Reviewed
Vital Signs / I&O / Oxygen:
Vital Signs
Temp Pulse Resp BP Pulse Ox
98.3 F 69 16 115/58 100
07/14/24 11:00 07/14/24 11:38 07/14/24 11:38 07/14/24 11:00 07/14/24 11:38
Intake and Output
07/13/24 07/14/24 07/15/24
06:59 06:59 06:59
Intake Total 720 / 720 1200 / 1200 480 / 480
Output Total 550 / 550 100 / 100
Balance 170 / 170 1100 / 1100 480 / 480
SaO2 100
Nasal Cannula flow liters per 4
minute
Physical Exam
General: Comfortable
HEENT: Normocephalic and Anicteric
Cardiovascular: S1-S2, Regular Rhythm, Murmur (n), Rub (n) and Peripheral Edema (n)
Respiratory: Wheeze (n), Crackles (Minimal at base), Rhonchi (n), Non-Labored Respirations, Stridor (n) and Other (Decreased breath sounds throughout)
GI: Soft, Distended (Slightly distended) and Non Tender
Neurology: Awake, Alert and No Motor Deficits (Able to sit up with minimal assistance)
Skin: Cyanosis (n), Jaundice (n) and Rash (n)
Labs/Micro/Reports
Lab Data
07/14/24 10:32
07/14/24 10:32
[2024-07-14] MEDS: TYLENOL 1000 MG PO ×2 (16:28→21:53)
--- NOTE | 2024-07-14 17:03 | CM ---
CM made referrals to [facility], [facility], [facility], [facility] and [facility] in [place]. Pt's daughter aware of referrals made. Preference is for something close to home ([place]) so is closeby.
Plan: CM to follow up with above facilities in AM to determine bed availability.
[2024-07-14] MEDS: PLAVIX 75 MG PO (18:09)
[2024-07-14] MEDS: LIPITOR 40 MG PO (18:10)
--- NOTE | 2024-07-14 18:38 | PTCARENOTE ---
Top of right forearm has a dark purple bruise that extends to mid upper arm. 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 Black/blue bruising on lower abdomen. Skin tear redressed on L forearm.
[2024-07-14] MEDS: HEPARIN SC (21:45)
[2024-07-15 03:36] VITALS: BP 126/59
--- NOTE | 2024-07-15 05:16 | PTCARENOTE ---
Pt more confused this HS than HS prior. Pt asking, 'Are we in a skilled nursing? How did I get here? Did I go drinking tonight?' Pt however cooperative and easily redirectable. Pt on 4LO2- Sp02 95%.
[2024-07-15] MEDS: SYNTHROID 25 MCG PO (06:04)
[2024-07-15 07:00] VITALS: BP 160/67
[2024-07-15 07:24] LABS: Hematocrit 25.9 % (37.0-47.0); Hemoglobin 8.2 g/dL (12.0-16.0); Mean Corp Hgb Conc. 31.7 g/dL (33.0-37.0); Mean Corpuscular Hgb 26.5 pg (27.0-31.0); Mean Corpuscular Volume 83.5 fL (81.0-99.0); Mean Platelet Volume 9.4 fL (7.4-10.4); Platelet Count 216 10^3/uL (130-400); Red Cell Dist. Width 15.9 % (11.5-14.5); White Blood Cell Count 13.8 10^3/uL (4.8-10.8)
[2024-07-15 07:47] LABS: Blood Urea Nitrogen 36 mg/dl (7-17); Calcium 9.1 mg/dl (8.4-10.2); Carbon Dioxide 24 mmol/L (22-30); Chloride 104 mmol/L (98-107); Estimated Creatinine Clearance 18 ml/min; Glucose 102 mg/dl (70-99); Potassium 3.4 mmol/L (3.5-5.1); Sodium 139 mmol/L (135-145); eGFR 29.57
[2024-07-15] MEDS: PULMICORT 0.5 MG INH ×2 (08:09→20:50)
[2024-07-15] MEDS: EDECRIN 25 MG PO (09:42)
[2024-07-15] MEDS: PROTONIX 40 MG PO (09:43)
[2024-07-15] MEDS: TYLENOL 1000 MG PO ×3 (09:43→21:41)
[2024-07-15] MEDS: MUCINEX 1200 MG PO ×2 (09:43→21:41)
[2024-07-15] MEDS: TOPROL XL 25 MG PO (09:44)
[2024-07-15] MEDS: DELTASONE 20 MG PO (09:44)
[2024-07-15] MEDS: HEPARIN 5000 UNITS SC (09:45)
[2024-07-15] MEDS: LOW STRENGTH ASPIRIN 81 MG PO (09:45)
[2024-07-15] MEDS: LIDOCAINE 4% PATCH 1 PATCH TOPICAL (09:45)
[2024-07-15 11:00] VITALS: BP 101/38
--- NOTE | 2024-07-15 12:59 | W.PN.HOSP.TC ---
Today's Communication/Plan
-
trend Hg given report of melena
PPI BID
Hold Plavix
Daughter states patient would not want procedures
continue Prednisone taper and daily Ethacrynic acid
appreciate consultants
Assessment / Plan
Assessment / Plan
Assessment:
Melena
-noticed by RN this morning
-will change Protonix to IV BID and trend Hg; hold Plavix and hep subQ
-discussed with daughter who states patient would not want a procedure, and she likely is not a candidate given O2 needs
-transfuse for Hg < 8
Acute on chronic hypoxic respiratory failure
- on 3L baseline, oxygen weaned this morning to 4L - monitor
Acute COPD Exacerbation
Hx of Right sided lobectomy for History of lung cancer status post lobectomy/chemoradiation 2013 followed by [facility])
- CXR: Small right pleural effusion with associated probable atelectasis. Bibasilar interstitial thickening may reflect pulmonary vascular congestion and/or pneumonitis
- COVID/Flu negative
- continue PO steroid ysprt
- ATC and prn nebs
- mucolytics, IS, Acapella
- Pulmonary following
- ST eval: continue dysphagia diet
acute HFpEF
- Sulfa allergy noted; started on Edecrin by Cards; s/p 1 dose IV 07/11. Continue PO meds and monitor BMP.
- monitor I/Os, weights, lytes
Elevated D-dimer, chronic per daughter (an RN)
- did not tolerate V/Q attempt previously
- cannot have CT with CKD
- check venous dopplers - no e/o DVT
Essential HTN
- continue BB
- hold CCB
CAD (hx of NSTEMI with stenting)
- hold Plavix as above -PCI 07/2022
- stop aspirin (not on at home)
- continue statin
L3 compression fracture likely acute/subacute
- CT: Moderate L3 compression fracture likely acute/subacute otherwise no abnormality identified in the abdomen or pelvis
- continue pain control
- PT/OT
History of left subclavian stenosis
Left carotid bruit
CKD 3b, baseline Cre 1.4-1.6
- monitor BMP
History of multiple allergies including IV dye allergy [no history of intubation]
Hypothyroidism - continue replacement
Recent UTI - received Bactrim (developed rash ?allergy)
- UA here clear
Chronic anemia�normocytic
- iron deficiency
- s/p Ferrlecit course
Former smoker
- Patient believes three-quarter pack per year stopped age 59 which was 24 years ago
Chronic ambulatory dysfunction
- Uses walker or wheelchair at baseline
- PT/OT
GERD - PPI added
DVT ppx: SC Heparin
Code: DNR
Anticipated Discharge: 24 - 48 hours
Subjective/Interval History
-
Date of Service: July 15, 2024
per RN patient with black tarry stools
patient unaware that her stools look different
Objective Data
-
Labs:
Laboratory Results
07/15/24 07/15/24
06:43 14:00
WBC 13.8 H
Hgb 8.2 L Pending
Hct 25.9 L
Plt Count 216
Sodium 139
Potassium 3.4 L
Chloride 104
Carbon Dioxide 24
BUN 36 H
Creatinine 1.7 H
Glucose 102 H
Calcium 9.1
Vital Signs:
Vital Signs
Temp Pulse Resp BP Pulse Ox
98 F 71 19 101/38 100
07/15/24 11:00 07/15/24 11:00 07/15/24 11:00 07/15/24 11:00 07/15/24 11:00
I&O
07/14/24 07/15/24 07/16/24
06:59 06:59 06:59
Intake Total 1200 / 1200 720 / 720 480 / 480
Output Total 100 / 100
Balance 1100 / 1100 720 / 720 480 / 480
Review of Systems
-
History Source: Patient
All other systems: Reviewed and negative
Physical Exam
-
General: No Apparent Distress
HEENT: Normocephalic and Atraumatic
Respiratory: Clear to Auscultation and Decreased Breath Sounds
Cardiac: Regular Rhythm and S1/S2
GI: Soft
Neuro: AO x 3
Hematologic / Lymphatic: No Lymphadenopathy
Psych: Calm
Data Reviewed
-
Diagnostic Radiology: Report Reviewed by me
Labs: Labs Reviewed by me
[2024-07-15] MEDS: KCL 20 MEQ PO (13:37)
[2024-07-15] MEDS: PROTONIX IV 40 MG IV ×2 (13:37→21:41)
[2024-07-15] MEDS: NSS (PRESERVATIVE FREE) 10 ML IV ×2 (13:39→21:41)
[2024-07-15 14:17] LABS: Hemoglobin 8.7 g/dL (12.0-16.0)
[2024-07-15 15:00] VITALS: BP 109/43
[2024-07-15] MEDS: LIPITOR 40 MG PO (17:36)
[2024-07-15 19:26] VITALS: BP 108/69
[2024-07-15 22:08] LABS: Hemoglobin 8.9 g/dL (12.0-16.0)
[2024-07-15 23:39] VITALS: BP 130/53
[2024-07-16] VITALS (7 sets, daily range): BP systolic 118–158; BP diastolic 44–64; BMI 23.3
[2024-07-16 05:59] LABS: Hematocrit 28.6 % (37.0-47.0); Hemoglobin 8.8 g/dL (12.0-16.0); Mean Corp Hgb Conc. 30.8 g/dL (33.0-37.0); Mean Corpuscular Hgb 26.5 pg (27.0-31.0); Mean Corpuscular Volume 86.1 fL (81.0-99.0); Mean Platelet Volume 9.8 fL (7.4-10.4); Platelet Count 253 10^3/uL (130-400); Red Blood Cell Count 3.32 10^6/uL (4.20-5.40); Red Cell Dist. Width 17.6 % (11.5-14.5); White Blood Cell Count 15.4 10^3/uL (4.8-10.8)
[2024-07-16] MEDS: SYNTHROID 25 MCG PO (06:05)
[2024-07-16 06:21] LABS: Blood Urea Nitrogen 33 mg/dl (7-17); Carbon Dioxide 23 mmol/L (22-30); Chloride 104 mmol/L (98-107); Estimated Creatinine Clearance 16 ml/min; Glucose 104 mg/dl (70-99); Potassium 3.6 mmol/L (3.5-5.1); Sodium 139 mmol/L (135-145); eGFR 25.88
[2024-07-16] MEDS: EDECRIN 25 MG PO (08:16)
[2024-07-16] MEDS: MUCINEX 1200 MG PO ×2 (08:16→20:58)
[2024-07-16] MEDS: NSS (PRESERVATIVE FREE) 10 ML IV (08:16)
[2024-07-16] MEDS: TYLENOL 1000 MG PO (08:17)
[2024-07-16] MEDS: DELTASONE 10 MG PO (08:19)
[2024-07-16] MEDS: TOPROL XL 25 MG PO (08:19)
[2024-07-16] MEDS: LIDOCAINE 4% PATCH 1 PATCH TOPICAL (08:20)
[2024-07-16] MEDS: PROTONIX IV 40 MG IV (08:20)
[2024-07-16] MEDS: PULMICORT 0.5 MG INH ×2 (09:13→19:47)
[2024-07-16] MEDS: ROXICODONE 2.5 MG PO (10:11)
--- NOTE | 2024-07-16 12:08 | W.PN.HOSP.TC ---
Today's Communication/Plan
-
continue BID Protonix
resume Plavix
repeat labs tomorrow AM. If creatinine climbing would reconsult cardiology to help guide diuretic regimen - Ethacrynic acid on hold for now
Assessment / Plan
Assessment / Plan
Assessment:
Melena
-noticed by RN morning of 07/15
-protonix changed to 40 IV BID; Plavix and hep subQ held
-discussed with daughter who states patient would not want a procedure, and she likely is not a candidate given O2 needs. We discussed treating conservatively and monitoring. Overnight there has not been a drop in Hg and stools are now brown
-will change Protonix to oral BID (continue BID dosing especially while on steroids)
-will resume Plavix this evening
Acute on chronic hypoxic respiratory failure
- on 3L baseline, oxygen weaned this morning to 4L
Acute COPD Exacerbation
Hx of Right sided lobectomy for History of lung cancer status post lobectomy/chemoradiation 2013 followed by [facility])
- CXR: Small right pleural effusion with associated probable atelectasis. Bibasilar interstitial thickening may reflect pulmonary vascular congestion and/or pneumonitis
- COVID/Flu negative
- continue PO steroid taper
- ATC and prn nebs
- mucolytics, IS, Acapella
- appreciate Pulmonary
- ST eval: continue dysphagia diet
acute HFpEF
- Sulfa allergy noted; started on Edecrin by Cards; s/p 1 dose IV 07/11.
- creatinine climbing this AM to 1.8 --> hold Edecrin until labs seen tomorrow AM If creatinine remains elevated would reconsult cards to help guide diuretic regimen on DC
- monitor I/Os, weights, lytes
Elevated D-dimer, chronic per daughter (an RN)
- did not tolerate V/Q attempt previously
- cannot have CT with CKD
- check venous dopplers - no e/o DVT
- sx improved with treatment of heart failure and COPD
Essential HTN
- continue BB
- hold CCB
CAD (hx of NSTEMI with stenting)
- -PCI 07/2022
- resume Plavix
- stop aspirin (not on at home)
- continue statin
L3 compression fracture likely acute/subacute
- CT: Moderate L3 compression fracture likely acute/subacute otherwise no abnormality identified in the abdomen or pelvis
- continue pain control
- PT/OT
History of left subclavian stenosis
Left carotid bruit
CKD 3b, baseline Cre 1.4-1.6
- monitor BMP
History of multiple allergies including IV dye allergy [no history of intubation]
Hypothyroidism - continue replacement
Recent UTI - received Bactrim (developed rash ?allergy)
- UA here clear
Chronic anemia�normocytic
- iron deficiency
- s/p Ferrlecit course
Former smoker
- Patient believes three-quarter pack per year stopped age 59 which was 24 years ago
Chronic ambulatory dysfunction
- Uses walker or wheelchair at baseline
- PT/OT
GERD - PPI added
DVT ppx: SC Heparin
Code: DNR
Anticipated Discharge: 24 - 48 hours
Subjective/Interval History
-
Date of Service: July 16, 2024
no further black stools
no abdominal pain
breathing stable
no chest pain
Objective Data
-
Labs:
Laboratory Results
07/16/24
04:13
WBC 15.4 H
Hgb 8.8 L
Hct 28.6 L
Plt Count 253
Sodium 139
Potassium 3.6
Chloride 104
Carbon Dioxide 23
BUN 33 H
Creatinine 1.9 H
Glucose 104 H
Calcium 9.0
Vital Signs:
Vital Signs
Temp Pulse Resp BP Pulse Ox
98.3 F 81 16 124/44 97
07/16/24 07:00 07/16/24 09:15 07/16/24 09:15 07/16/24 07:00 07/16/24 09:15
I&O
07/15/24 07/16/24 07/17/24
06:59 06:59 06:59
Intake Total 720 / 720 630 / 630
Balance 720 / 720 630 / 630
Review of Systems
-
History Source: Patient
All other systems: Reviewed and negative
Physical Exam
-
General: No Apparent Distress
HEENT: Normocephalic and Atraumatic
Respiratory: Clear to Auscultation and Decreased Breath Sounds
Cardiac: Regular Rhythm and S1/S2
GI: Soft
Neuro: AO x 3
Hematologic / Lymphatic: No Lymphadenopathy
Psych: Calm
Data Reviewed
-
Diagnostic Radiology: Report Reviewed by me
Labs: Labs Reviewed by me
[2024-07-16] MEDS: LIPITOR 40 MG PO (18:30)
[2024-07-16] MEDS: PLAVIX 75 MG PO (18:30)
[2024-07-16] MEDS: PROTONIX 40 MG PO (20:59)
[2024-07-17] MEDS: TYLENOL 650 MG PO (02:59)
[2024-07-17] MEDS: SYNTHROID 25 MCG PO (03:00)
[2024-07-17 03:15] VITALS: BP 142/57
[2024-07-17] MEDS: NORCO 5/325 1 TABLET PO (04:13)
[2024-07-17 05:21] VITALS: BMI 22.1
[2024-07-17 07:00] VITALS: BP 140/67
[2024-07-17] MEDS: PULMICORT 0.5 MG INH (08:48)
[2024-07-17] MEDS: LIDOCAINE 4% PATCH 1 PATCH TOPICAL (09:20)
[2024-07-17] MEDS: PROTONIX 40 MG PO (09:20)
[2024-07-17] MEDS: MUCINEX 1200 MG PO (09:20)
[2024-07-17] MEDS: DELTASONE 10 MG PO (09:20)
[2024-07-17] MEDS: TOPROL XL 25 MG PO (09:21)
[2024-07-17 10:20] LABS: Blood Urea Nitrogen 29 mg/dl (7-17); Calcium 9.1 mg/dl (8.4-10.2); Carbon Dioxide 19 mmol/L (22-30); Chloride 106 mmol/L (98-107); Estimated Creatinine Clearance 19 ml/min; Glucose 179 mg/dl (70-99); Potassium 3.6 mmol/L (3.5-5.1); Sodium 138 mmol/L (135-145)
[2024-07-17 10:55] LABS: Hematocrit 27.2 % (37.0-47.0); Hemoglobin 8.6 g/dL (12.0-16.0); Mean Corp Hgb Conc. 31.6 g/dL (33.0-37.0); Mean Corpuscular Hgb 27.2 pg (27.0-31.0); Mean Corpuscular Volume 86.1 fL (81.0-99.0); Mean Platelet Volume 9.9 fL (7.4-10.4); Platelet Count 179 10^3/uL (130-400); Red Blood Cell Count 3.16 10^6/uL (4.20-5.40); Red Cell Dist. Width 18.6 % (11.5-14.5); White Blood Cell Count 11.4 10^3/uL (4.8-10.8)
[2024-07-17 11:00] VITALS: BP 103/54
--- NOTE | 2024-07-17 12:35 | PTOTSP ---
Speech Language Pathology
VIDEOFLUOROSCOPIC SWALLOWING EXAMINATION (VSE) completed. Mild oral dysphagia characterized by decreased oral containment with variable initiation of swallow. Thin liquids via tsp and cup noted in laryngeal vestibule prior to swallow initiation.
Mild pharyngeal dysphagia also noted. Supraglottic penetration which fully cleared (PAS 2) noted with thin liquid via tsp/cup. Supraglottic penetration which did not fully clear (PAS 3) noted with consecutive sips of thin liquids. No other
penetration or any aspiration noted. Esophageal sweep demonstrated significant residue without backflow.
Recommend:
(1) Regular solids/thin liquids
(2) Aspiration precautions: sit upright, single sips, slow rate
(3) Meds whole with liquid if able to take with single sip. If not, throat clear/reswallow following
(4) Consider GI consult
(5) B[facility]ER [facility]ER to continue to follow
--- NOTE | 2024-07-17 13:16 | W.PN.PAL2 ---
Today's Communication
-
Met with daughter at bedside for palliative care follow up. patient sleeping at time of visit. events over the weekend reviewed, going for VSE today. Plan for Rehab after hospital stay. Daughter reports they plan to increase support at home, but
have to persuade patient's spouse to agree. Agreeable to outpatient palliative care visits when eventually home
Total floor time 20 mins .
Assessment / Plan
-
Assessment/Plan:
Plan for outpatient palliative care when home.
Reason for Admission
Illness Course/HPI
83 year old F with PMH of advanced COPD, R lobectomy 2/2 cancer, CHF admitted with shortness of breath. Being treated for COPD exacerbation.
Previously on 3L at home, now with increased 02 needs on 4L. Was requiring 8-10L initially in hospitalization. Pulm following - recommend outpatient follow up and increase in baseline 02 to 4L. Cardiology following - recommend diuresis. Imaging with
small b/l effusions. Also with L3 compression fracture. 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 Has PRN vicodin at home.
Seen at bedside with family present including daughter Eli who is an RN. Patient appears comfortable, no complaints. Getting relief with lidocaine patch to back. Sitting up eating lunch. She lives with her . Children have some safety
concerns about their parents home, looking into hiring aide support for them. Will ask to provide list of agencies for this. Patient remains independent with personal care but with increased difficulty with steps due to progression of lung
disease, frailty.
Goals of Care Discussion
-
Patient able to participate in discussion at time of visit: No
Objective Data
-
Objective Data:
Vital Signs
Temp Pulse Resp BP Pulse Ox
98.2 F 67 20 103/54 98
07/17/24 11:00 07/17/24 11:00 07/17/24 11:00 07/17/24 11:00 07/17/24 11:00
Laboratory Results
07/17/24 09:10
07/17/24 09:10
Total Protein 6.1 g/dl (6.3-8.2) L 07/13/24 13:18
Albumin 3.7 g/dl (3.5-5.0) 07/13/24 13:18
Urine Color Yellow 07/10/24 13:55
Urine Clarity Clear (Clear) 07/10/24 13:55
Urine pH 6.0 (5.0-9.0) 07/10/24 13:55
Ur Specific [place] 1.015 (<1.030) 07/10/24 13:55
Urine Ketones Negative (Negative) 07/10/24 13:55
Urine Bilirubin Negative (Negative) 07/10/24 13:55
Palliative Performance Scale
Palliative Performance Scale:
PPS Level Ambulation Activity & Evidence of Disease Self Care Intake Conscious Level
100% Full Normal Activity & Work; Full Intake Full
No Evidence of Disease
90% Full Normal Activity & Work; Full Normal Full
Some Evidence of Disease
80% Full Normal Activity with Effort Full Normal or Full
Some Evidence of Disease Reduced
70% Reduced Unable Normal Job/Work Full Normal or Full
Significant Disease Reduced
60% Reduced Unable Hobby/Housework Occasional Normal or Full or Confusion
Significant Disease Assistance Reduced
50% Mainly Sit/Lie Unable to do Any Work Considerable Normal or Full or Confusion
Extensive Disease Assistance Req'd Reduced
40% Mainly in Bed Unable to do Most Activity Mainly Assistance Normal or Full or Drowsy;
Extensive Disease Reduced +/- Confusion
30% Totally Bed Unable to do Any Activity Total Care Normal or Full or Drowsy;
Bound Extensive Disease Reduced +/- Confusion
20% Totally Bed Bound Unable to do Any Activity Total Care Minimal to Full or Drowsy;
Extensive Disease Sips +/- Confusion
10% Totally Bed Bound Unable to do Any Activity Total Care Mouth Care Drowsy or Coma;
Extensive Disease Only +/- Confusion
0%
PPS Score Level:
Palliative Performance Score Response
Palliative Performance Score Response: 40%
Physical Exam
-
General: No Apparent Distress
Psych: Calm
Care Reviewed
Data Reviewed
Reviewed with: Family
--- NOTE | 2024-07-17 13:33 | CM ---
Addendum entered by Kimmy Marshall 07/17/24 14:48:
Skilled placement at [facility] today
[place]
report [phone]

Original Note:
Chart reviewed and case repairer reached out to patient's daughter, Eli who stated that she toured [facility] and [facility] and patient has selected [facility] for skilled placement. Bed is available at [facility] for patient, no Auth required.
Plan; Plan is for skilled placement at [facility], compression fracture, 3-4 liters of oxygen.
--- NOTE | 2024-07-17 14:39 | W.PN.HOSP.TC ---
Today's Communication/Plan
-
dc to SNF
Assessment / Plan
Assessment / Plan
Assessment:
Melena
-noticed by RN morning of 07/15
-discussed with daughter who states patient would not want a procedure, and she likely is not a candidate given O2 needs. We discussed treating conservatively and monitoring. Overnight there has not been a drop in Hg and stools are now brown
- continue PPI and Plavix
Acute on chronic hypoxic respiratory failure
- on 3L baseline, oxygen weaned this morning to 4L
Acute COPD Exacerbation
Hx of Right sided lobectomy for History of lung cancer status post lobectomy/chemoradiation 2013 followed by [facility])
- CXR: Small right pleural effusion with associated probable atelectasis. Bibasilar interstitial thickening may reflect pulmonary vascular congestion and/or pneumonitis
- COVID/Flu negative
- continue PO steroid taper 10mg until Wednesday
- ATC and prn nebs
- mucolytics, IS, Acapella
- appreciate Pulmonary
- ST eval: regular diet/thins per ST recs after VSE 07/17
acute HFpEF
- Sulfa allergy noted; started on Edecrin by Cards; s/p 1 dose IV 07/11.
- reduce Edecrin to 25mg Q48H
- monitor I/Os, weights, lytes
Elevated D-dimer, chronic per daughter (an RN)
- did not tolerate V/Q attempt previously
- cannot have CT with CKD
- check venous dopplers - no e/o DVT
- sx improved with treatment of heart failure and COPD
Essential HTN
- continue BB
- hold CCB
CAD (hx of NSTEMI with stenting)
- PCI 07/2022
- resume Plavix
- stop aspirin (not on at home)
- continue statin
L3 compression fracture likely acute/subacute
- CT: Moderate L3 compression fracture likely acute/subacute otherwise no abnormality identified in the abdomen or pelvis
- continue pain control
- PT/OT
History of left subclavian stenosis
Left carotid bruit
CKD 3b, baseline Cre 1.4-1.6
- monitor BMP
History of multiple allergies including IV dye allergy [no history of intubation]
Hypothyroidism - continue replacement
Recent UTI - received Bactrim (developed rash ?allergy)
- UA here clear
Chronic anemia�normocytic
- iron deficiency
- s/p Ferrlecit course
Former smoker
- Patient believes three-quarter pack per year stopped age 59 which was 24 years ago
Chronic ambulatory dysfunction
- Uses walker or wheelchair at baseline
- PT/OT
GERD - PPI added
DVT ppx: SC Heparin
Code: DNR
More than 30 minutes spent in discharge including
Final examination of the patient
Summarizing hospital stay
Instructions for continuing care to all relevant caregivers
Preparation of discharge records, prescriptions, and referral forms
Total time spent (in minutes):41
Anticipated Discharge: Today
Subjective/Interval History
-
Date of Service: July 17, 2024
denies any new complaints
Objective Data
-
Labs:
Laboratory Results
07/17/24
09:10
WBC 11.4 H
Hgb 8.6 L
Hct 27.2 L
Plt Count 179 D
Sodium 138
Potassium 3.6
Chloride 106
Carbon Dioxide 19 L
BUN 29 H
Creatinine 1.6 H
Glucose 179 H
Calcium 9.1
Vital Signs:
Vital Signs
Temp Pulse Resp BP Pulse Ox
98.2 F 67 20 103/54 98
07/17/24 11:00 07/17/24 11:00 07/17/24 11:00 07/17/24 11:00 07/17/24 11:00
I&O
07/16/24 07/17/24 07/18/24
06:59 06:59 06:59
Intake Total 630 / 630 120 / 120 960 / 960
Balance 630 / 630 120 / 120 960 / 960
Physical Exam
-
General: No Apparent Distress and Appears Chronically Ill
HEENT: Normocephalic and Atraumatic
Respiratory: Negative Wheezes
Cardiac: Regular Rhythm and S1/S2
GI: Soft
Musculoskeletal: No Edema
Neuro: AO x 3
Hematologic / Lymphatic: No Lymphadenopathy
Psych: Calm
Data Reviewed
-
Total Time Spent with Patient (in minutes): 41
Labs: Labs Reviewed by me
--- NOTE | 2024-07-17 14:50 | W.DS.TRANS ---
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
-
Discharge Instructions:
Discharge Diagnosis/Procedures acute hypoxia from acute COPD, acute CHF
Diet Low Cholesterol,2 Gram Sodium,Restrict fluids to
48 oz
Activity As tolerated
Other Services PT,OT
Instructions:
Stand-Alone Forms:
Changes to Home Medications: No
Discharge Medications:
DC Medications w/original date entered in [facility]
ascorbic acid (vitamin C) 1,000 mg tablet (Vitamin C) 1,000 mg PO DAILY Supplement 02/28/18
calcium 600 mg (as carbonate)-vit D3 20 mcg (800 unit) chewable tablet (Caltrate plus D) 1 ea PO DAILY Supplement 02/28/18
levothyroxine 25 mcg tablet (Synthroid) 25 mcg PO DAILY Thyroid 07/25/22
metoprolol succinate 25 mg tablet,extended release 24 hr 25 mg PO DAILY Heart disease/condition #30 tabs 07/29/22
clopidogrel 75 mg tablet 75 mg PO QPM Blood Clot Prevention/Tx 07/10/24
magnesium oxide 250 mg PO HS Supplement 07/10/24
mirtazapine 15 mg disintegrating tablet 15 mg PO HS Mental Health/Anxiety 07/10/24
ondansetron 4 mg disintegrating tablet 4 mg PO Q8HPRN PRN nausea 07/10/24
atorvastatin 40 mg tablet 40 mg PO QPM #30 tabs 07/17/24
budesonide 0.5 mg/2 mL suspension for nebulization 0.5 mg (2 mL) inhalation R BID #60 mL 07/17/24
ethacrynic acid 25 mg tablet 25 mg PO Q48H #15 tabs 07/17/24
guaifenesin 600 mg tablet, extended release 12 hr 1,200 mg (2 x 600 mg) PO Q12 #20 tabs 07/17/24
hydrocodone 5 mg-acetaminophen 325 mg tablet 1 tab PO Q4HPRN PRN moderate to severe pain #5 tabs 07/17/24
lidocaine 4 % topical patch 1 patch topical DAILY #30 ea 07/17/24
pantoprazole 40 mg tablet,delayed release 40 mg PO DAILY #30 tabs 07/17/24
prednisone 10 mg tablet 10 mg PO DAILY #1 tab 07/17/24
Home Medication Changes
Pending Results: No
Total time spent discharging patient (in min): 41
[2024-07-17 15:00] VITALS: BP 130/56
[2024-07-17] MEDS: PLAVIX 75 MG PO (17:00)
[2024-07-17] MEDS: LIPITOR 40 MG PO (17:00)
== END 2024-07-17 18:25 | DRG 291 ==
LOC: 4 WEST ACU 16:00
PROVIDERS: Clinical Nurse Specialist Family Health; Internal Medicine; Internal Medicine Cardiovascular Disease; Nurse Practitioner Gerontology; Physician Assistant; Student in an Organized Health Care Education/Training Program; ADMITTING PHYSICIAN Internal Medicine; ATTENDING PHYSICIAN Internal Medicine; CONSULT PHYSICIAN Internal Medicine Cardiovascular Disease; CONSULT PHYSICIAN Internal Medicine Critical Care Medicine; EMERGENCY PHYSICIAN Emergency Medicine; FAMILY PHYSICIAN Internal Medicine
PROC: 5A0935A Assistance with Respiratory Ventilation, Less than 24 Consecutive Hours, High Flow/Velocity Cannula (ICD-10-PCS; 2024-07-15)
DX: I50.31 Acute diastolic (congestive) heart failure (principal); J96.21 Acute and chronic respiratory failure with hypoxia; J44.1 Chronic obstructive pulmonary disease with (acute) exacerbation; M80.08XA Age-related osteoporosis with current pathological fracture, vertebra(e), initial encounter for fracture; N39.0 Urinary tract infection, site not specified; K92.1 Melena; Z66 Do not resuscitate; J43.9 Emphysema, unspecified; I25.2 Old myocardial infarction; I25.10 Atherosclerotic heart disease of native coronary artery without angina pectoris; I12.9 Hypertensive chronic kidney disease with stage 1 through stage 4 chronic kidney disease, or unspecified chronic kidney disease; I73.9 Peripheral vascular disease, unspecified; E03.9 Hypothyroidism, unspecified; E78.00 Pure hypercholesterolemia, unspecified; D63.1 Anemia in chronic kidney disease; D50.9 Iron deficiency anemia, unspecified; R26.2 Difficulty in walking, not elsewhere classified; K21.9 Gastro-esophageal reflux disease without esophagitis; K59.00 Constipation, unspecified; N18.32 Chronic kidney disease, stage 3b; Z99.81 Dependence on supplemental oxygen; Z95.5 Presence of coronary angioplasty implant and graft; Z92.3 Personal history of irradiation; Z92.21 Personal history of antineoplastic chemotherapy; Z91.041 Radiographic dye allergy status; Z90.2 Acquired absence of lung [part of]; Z85.118 Personal history of other malignant neoplasm of bronchus and lung; Z87.891 Personal history of nicotine dependence; Z79.899 Other long term (current) drug therapy; Z88.0 Allergy status to penicillin; Z88.2 Allergy status to sulfonamides; Z88.5 Allergy status to narcotic agent; Z88.6 Allergy status to analgesic agent; Z11.52 Encounter for screening for COVID-19; Z79.82 Long term (current) use of aspirin; Z79.890 Hormone replacement therapy
CPT/HCPCS: 51701; 71045; 71046; 74176; 74230; 80048; 80053; 80061; 81003; 81015; 82607; 82728; 82746; 82805; 83540; 83550; 83605; 83880; 84484; 85018; 85025; 85027; 85379; 87502; 87811; 92526; 92610; 92611; 93005; 93306; 93970; 94640; 96361; 96374; 96375; 97163; 97167; 97530; 99285; J2916

== ENCOUNTER → 2024-07-21 13:16 | Outpatient (REF) | payer MEDICARE, OTHER, SELFPAY ==
[2024-07-21 14:13] LABS: % Basophils 0.4 % (0-2); % Eosinophils 3.5 % (0-6); % Immature Granulocytes 0.6 % (0-0.5); % Lymphocytes 25.8 % (20.5-51.1); % Monocytes 8.1 % (1.7-9.3); % Neutrophils 61.6 % (42.2-75.2); Absolute Eosinophils 0.3 10^3/uL (0-0.7); Absolute Immature Granulocytes 0.1 10^3/uL (0-0.05); Absolute Monocytes 0.6 10^3/uL (0.1-0.6); Absolute Neutrophils 4.8 10^3/uL (1.4-6.5); Hemoglobin 8.2 g/dL (12.0-16.0); Mean Corp Hgb Conc. 29.3 g/dL (33.0-37.0); Mean Corpuscular Hgb 26.5 pg (27.0-31.0); Mean Corpuscular Volume 90.3 fL (81.0-99.0); Mean Platelet Volume 10.5 fL (7.4-10.4); Nucleated Red Blood Cells % 0 %; Platelet Count 156 10^3/uL (130-400); Red Cell Dist. Width 21.7 % (11.5-14.5); White Blood Cell Count 7.8 10^3/uL (4.8-10.8)
[2024-07-21 14:41] LABS: Blood Urea Nitrogen 32 mg/dl (7-17); Calcium 8.8 mg/dl (8.4-10.2); Carbon Dioxide 22 mmol/L (22-30); Chloride 107 mmol/L (98-107); Glucose 84 mg/dl (70-99); Potassium 3.8 mmol/L (3.5-5.1); Sodium 138 mmol/L (135-145); eGFR 25.88
== END ==
LOC: OLABP 13:16
PROVIDERS: ATTENDING PHYSICIAN Family Medicine
DX: J44.1 Chronic obstructive pulmonary disease with (acute) exacerbation (principal); I50.33 Acute on chronic diastolic (congestive) heart failure; D64.9 Anemia, unspecified
CPT/HCPCS: 36415; 80048; 85025

== ENCOUNTER → 2024-07-31 10:59 | Outpatient (REF) | payer MEDICARE, OTHER, SELFPAY ==
[2024-07-31 11:53] LABS: Blood Urea Nitrogen 33 mg/dl (7-17); Calcium 8.6 mg/dl (8.4-10.2); Carbon Dioxide 17 mmol/L (22-30); Chloride 110 mmol/L (98-107); Glucose 80 mg/dl (70-99); Potassium 4.5 mmol/L (3.5-5.1); Sodium 136 mmol/L (135-145)
== END ==
LOC: OLABP 10:59
PROVIDERS: ATTENDING PHYSICIAN Family Medicine
DX: J44.1 Chronic obstructive pulmonary disease with (acute) exacerbation (principal); J90 Pleural effusion, not elsewhere classified; M54.50 Low back pain, unspecified; R26.2 Difficulty in walking, not elsewhere classified; I50.31 Acute diastolic (congestive) heart failure; I13.0 Hypertensive heart and chronic kidney disease with heart failure and stage 1 through stage 4 chronic kidney disease, or unspecified chronic kidney disease
CPT/HCPCS: 36415; 80048

== ENCOUNTER 2025-04-05 08:54 | Emergency (ER) | payer MEDICARE, SELFPAY ==
[2025-04-05 08:58] VITALS: BP 117/67
[2025-04-05 09:03] VITALS: BP 117/67
[2025-04-05 09:08] VITALS: BMI 22.3
--- NOTE | 2025-04-05 09:17 | ED.GENMED ---
History of Present Illness
General
Chief Complaint: Chest Pain
Source: patient, family, ambulance crew and previous hospital records (Hospitalization June 2024 for treatment of acute exacerbation of COPD, acute CHF)
Exam Limitations: none
Time Seen by Provider: 04/05/25 09:02
Nursing documentation reviewed up to this point in time: agreed with
History of Present Illness
History of Present Illness:
The patient is an 84-year-old female with a significant past medical history, including lung cancer, prior right lobectomy, chronic obstructive pulmonary disease (COPD), chronically O2 dependent, coronary artery disease (CAD) with a right coronary
artery stent placed in July 2002, hypertension, and left subclavian stenosis, chronic low back pain. She was brought in by EMS with chest pain that began in the morning around 6 AM and woke her from sleep. The chest pain was described as lower
substernal and became tighter with deep breaths, associated with nausea without vomiting. She denies sweating, no palpitations. The pain has improved but not completely resolved after receiving two doses of nitroglycerin and four chewable aspirin
from EMS. The patient denied having experienced similar pain in the past. She reported increased shortness of breath with the chest pain but no fever. She did notice mild cough this morning. She denies leg pain or swelling.
She has been dealing with low back pain, takes hydrocodone versus Tylenol as needed for pain, has been following with pain management and is scheduled for epidural steroid injection next week. As such Plavix was discontinued 2 days ago.
She has also been dealing with somewhat chronic upper abdominal pain and is scheduled for an upper endoscopy in the near future.
She denies NSAID use.
She follows with specialist through [facility] including cardiology, gastroenterology, pulmonology and oncology.
She continues to reside at home with family.
Previous records reviewed including hospitalization here June 2024 for treatment of acute exacerbation of COPD with acute on chronic hypoxia as well as acute CHF. Palliative care was contemplated but not initiated.
Past History
Past History
ED Past Medical History: CAD, Cancer (Lung), COPD, GERD, HTN, PA, Renal failure (Chronic kidney disease stage IIIb), Hypothyroidism, Other (L3 compression fracture, chronic low back pain, history of left subclavian stenosis) and Other (Chronic
normocytic anemia; cognitive and ambulatory dysfunction)
ED Past Surgical History: Appendectomy, Cardiac (PTCA with stent to RCA July 2022), Cholecystectomy, Gynecological and Other (Right lung resection)
Patient has exhibited threatening behavior?: No
PSI?: No
Social History
Tobacco: Former smoker
Alcohol: Occasional
Drug: None
Personal:
Living: with family
Employment: Retired
Family History
Family History: Other (Noncontributory)
Phy Exam
Physical Exam
Physical Exam:
GENERAL: 84-year-old somewhat frail-appearing female is awake and alert, oriented x 3, very mild resting tachypnea but able to speak in full sentences. Overall appears in no acute distress.
EYE: pupils equal and reactive. anicteric
NECK: Supple, nontender, no meningismus, no significant adenopathy. Mild JVD.
ENT: oral mucosa is moist. No rhinorrhea. Nasal cannula oxygen in place.
CARDIAC: Regular rate and rhythm. no murmur.
LUNGS: Mild resting tachypnea, fine bibasilar rales.
ABDOMEN: Soft, nondistended, mild to moderate tenderness epigastric region, no r/g, no cvat. normoactive BS.
NEUROLOGICAL: Alert and oriented x3, no focal neuro deficits.
SKIN: Warm and dry, minimally pale in color, skin intact. No rash.
MUSCULOSKELETAL: No C/C/E. peripheral pulses are full and equal b/l. No palpable tenderness.
PSYCH: Normal and appropriate interaction.
Scores
Heart Score for Chest Pain Patients
STEMI patient?: No
History: Slightly or Non-Suspicious
ECG: Normal
Age: >/= 65 years
Risk Factors: >/= 3 Risk Factors or History of CAD
Troponin: </= Normal Limit
Heart Score for Chest Pain Patients: 4
Heart Score Risk: 20.3% MACE over next 6 weeks
Course
Orders/Labs/Results
Orders:
Orders
04/05/25
Electrocardiogram (*1) Stat
Comment: DONE EMR
04/05/25 09:02
Electrocardiogram (*1) Urgent
Reason for Study: Chest Pain
EKG- Treatment ONCE
04/05/25 09:10
Complete Blood Count/With Diff Urgent
Comprehensive Metabolic Panel Urgent
Lipase Urgent
Comment: ADD ON
NT-proBNP Urgent
Troponin I Urgent
04/05/25 09:16
Add On- LAB Urgent
Tests Added?: lipase
04/05/25 10:06
CR Chest - 2 Views Urgent
Comment:
Reason For Exam: SOB, cough, CP
04/05/25 10:07
EKG- Treatment ONCE
04/05/25 10:08
Pantoprazole [Protonix IV] 40 mg IV NOW STA
Sucralfate Suspension [Carafate Suspension] 1 gm PO NOW STA
04/05/25 11:00
Electrocardiogram (*1) Urgent
Reason for Study: Chest Pain
04/05/25 11:15
Troponin I Urgent
04/05/25 12:26
Levalbuterol [Xopenex 1.25 mg Inhalant Solution] 1.25 mg INH R NOW STA
Mag Hydrox/Al Hydrox/Simeth [Maalox] 30 ml Phenobarb/Hyoscy/Atropine/Scop [] 10 ml Viscous Lidocaine 2% [Xylocaine Viscous Cup] 10 ml PO NOW
04/05/25 12:31
Phenobarb/Hyoscy/Atropine/Scop [] 10 ml .ROUTE .STK-MED ONE
04/05/25 12:32
Mag Hydrox/Al Hydrox/Simeth [Maalox] 30 ml .ROUTE .STK-MED ONE
Viscous Lidocaine 2% [Xylocaine Viscous Cup] 15 ml .ROUTE .STK-MED ONE
04/05/25 12:33
Levalbuterol [Xopenex 1.25 mg Inhalant Solution] 1.25 mg INH R NOW STA
Abnormal Lab Results
04/05/25
09:10
RBC 3.38 L 10^6/uL
(4.20-5.40)
Hgb 8.6 L g/dL
(12.0-16.0)
Hct 28.1 L %
(37.0-47.0)
MCH 25.4 L pg
(27.0-31.0)
MCHC 30.6 L g/dL
(33.0-37.0)
RDW 15.9 H %
(11.5-14.5)
Absolute Monos (auto) 0.7 H 10^3/uL
(0.1-0.6)
Monocytes % 12.4 H %
(1.7-9.3)
Chloride 109 H mmol/L
(98-107)
BUN 18 H mg/dl
(7-17)
Creatinine 1.5 H mg/dL
(0.6-1.0)
Glucose 101 H mg/dl
(70-99)
Total Protein 6.1 L g/dl
(6.3-8.2)
04/05/25 09:10
04/05/25 09:10
Vital Signs
Initial and Last Documented VS:
Initial Vital Signs
Pulse Resp BP
64 19 117/67
04/05/25 08:58 04/05/25 08:58 04/05/25 08:58
Last Documented Vital Signs
Temp Pulse Resp BP Pulse Ox
98.6 F 64 21 135/59 99
04/05/25 09:03 04/05/25 13:00 04/05/25 13:00 04/05/25 13:00 04/05/25 13:00
MDM/Problems Addressed
Differential Diagnosis Includes:
The Differential Diagnosis includes, in no particular order and is not limited to:
1. Myocardial infarction
2. Unstable angina
3. Pulmonary embolism
4. Aortic dissection
5. Gastroesophageal reflux disease (GERD)
6. Costochondritis
7. Pneumonia
8. Pleural effusion
9. Heart failure exacerbation
10. Panic attack
MDM/Problems Addressed:
- Acute: Chest pain, Increased shortness of breath.
- Chronic: Chronic obstructive pulmonary disease (COPD), Coronary artery disease, Hypertension. Chronic low back pain, chronic upper abdominal pain
Prehospital EKG as well as EKG upon arrival showed no acute ST-T wave abnormalities, similar and unchanged from previous June 2024.
Overall comfortable in appearance.
- Cardiac evaluation with blood work including cardiac enzymes to rule out myocardial infarction.
- Continue monitoring vital signs and oxygen levels.
- Assess need for adjustment in COPD management.
- Consider consultation with cardiology to follow up on chest pain and past cardiac history.
- Evaluate current pain management and other medications for possible adjustments.
Chronic conditions affecting care: HTN, CAD, COPD, Kidney disease, Cancer and Other (Chronic low back pain, chronic upper abdominal pain)
*Pulse Oximetry
SaO2: 95
Nasal Cannula flow liters per minute: 4
Patient hypoxic: no
*EKG
Interpreted by ED Provider?: Yes
Interpretation: normal
Comparison EKG: no changes (Unchanged from previous June 2024)
Rate: normal
Rhythm: sinus
[place]: normal axis
Interval: normal interval
QRS Pattern: normal QRS
Ischemia: no ischemia
*Senior Asic Engineer Interpretation
Rate: normal
Interpretation: normal
Rhythm: sinus
*Critical Care Note
Total Time (30-74mins, 75-104mins- exclusive of procedures): Not Applicable
Update Note
Update Note:
12:30
Patient continues to appear comfortable. No respiratory distress. She is on her baseline 4 L nasal cannula with pulse ox 100%.
She continues with mild lower substernal chest discomfort. She is unsure if Carafate was helpful.
Chest x-ray shows chronic changes, overall stable and unchanged.
Labs reveal moderate anemia, similar to previous. Chronic kidney disease stable in fact improved from previous.
BNP 2300, improved from previous.
Troponin x 2 is negative.
EKG continues to show normal sinus rhythm, normal axis, normal intervals, no acute ST-T wave abnormalities.
Daughter is now at bedside.
Reports that she is no longer on prednisone. Has been inconsistent with nebulizer treatments and it daughter is requesting a nebulizer treatment now.
She does note pantoprazole recently increased from 20 to 40 mg.
Patient is scheduled for epidural steroid injection to her lumbar spine as well as upper endoscopy next week.
Will give Xopenex nebulizer and trial of GI cocktail.
Chronic ongoing upper abdominal pain could certainly be gastritis in nature. Moderate anemia but overall stable compared to previous and she reports no episodes of black nor tarry stools.
Following with GI as above.
13:35
Patient continues to feel comfortable.
Reports relief of chest discomfort after GI cocktail.
Recommend increasing pantoprazole to 40 mg twice daily.
Follow-up with warehouse foreman as well as armor reconnaissance vehicle crewman as already scheduled.
Continue all other medications and continue to hold Plavix with plan for epidural steroid injection next week.
Return precautions discussed.
ED Attending Note
-
Portions of this chart may have been created with voice recognition software.� Occasional wrong word or��sound alike� substitutions may have occurred due to the inherent limitations of voice recognition software.
Discharge Plan
Departure
Patient Disposition: Home (Routine Discharge)
Date of Disposition: 04/05/25
Time of Disposition: 13:40
Patient with high blood pressure during this ER visit?: No
Condition: Good
Discharge Problem:
Nonspecific chest pain, GERD (gastroesophageal reflux disease)
Instructions: Acid Reflux and GERD in Adults (DC), Chest Pain NON-DHP Digital Project Manager Follow Up
Prescriptions:
New
pantoprazole [Protonix] 40 mg tablet,delayed release (DR/EC)
40 mg PO BID Qty: 60 0RF
No Action
ascorbic acid (vitamin C) [Vitamin C] 1,000 MG tablet
1,000 mg PO DAILY
Caltrate 600 plus D 1 EACH tablet,chewable
1 ea PO DAILY
levothyroxine [Synthroid] 25 mcg Tablet
25 mcg PO DAILY
metoprolol succinate 25 mg Tablet Extended Release 24 Hr
25 mg PO DAILY Qty: 30 11RF
clopidogrel 75 mg Tablet
75 mg PO QPM
mirtazapine 15 mg Tablet,Disintegrating
15 mg PO HS
ondansetron 4 mg Tablet,Disintegrating
4 mg PO Q8HPRN PRN (Reason: nausea)
magnesium oxide 250 mg magnesium Tablet
250 mg PO HS
atorvastatin 40 mg Tablet
40 mg PO QPM Qty: 30 0RF
hydrocodone-acetaminophen 5-325 mg Tablet
1 tab PO Q4HPRN PRN (Reason: moderate to severe pain) Qty: 5 0RF
ethacrynic acid 25 mg Tablet
25 mg PO Q48H Qty: 15 0RF
pantoprazole 40 mg Tablet,Delayed Release (Dr/Ec)
40 mg PO DAILY Qty: 30 0RF
budesonide 0.5 mg/2 mL Suspension For Nebulization
0.5 mg inhalation R BID Qty: 60 0RF
prednisone 10 mg Tablet
10 mg PO DAILY Qty: 1 0RF
Rx Instructions:
last dose 07/18
guaifenesin 600 mg Tablet Extended Release 12hr
1,200 mg PO Q12 Qty: 20 0RF
lidocaine 4 % Adhesive Patch,Medicated
1 patch topical DAILY Qty: 30 0RF
Referrals:
Millie Virk, [Family Provider, Internal Medicine] - Call in 1-3 days for appt
Interventions
Interventions:
*Risk Screen - Suicide Last Done: 04/05/25 09:17
*General Assessment Last Done: 04/05/25 09:17
*Neglect/Abuse Screening Last Done: 04/05/25 09:17
*ED- Fall Risk Assessment Last Done: 04/05/25 09:15
*ED COVID-19 Vaccine History Last Done: 04/05/25 09:15
ED- Cardiac Assessment Last Done: 04/05/25 09:09
Discharge Date and Time
Print Language: YAKUT
[2025-04-05 09:34] LABS: Hematocrit 28.1 % (37.0-47.0); Hemoglobin 8.6 g/dL (12.0-16.0); Mean Corp Hgb Conc. 30.6 g/dL (33.0-37.0); Mean Corpuscular Volume 83.1 fL (81.0-99.0); Nucleated Red Blood Cells % 0 %; Platelet Count 185 10^3/uL (130-400); Red Cell Dist. Width 15.9 % (11.5-14.5)
[2025-04-05 09:43] LABS: ALT (SGPT) < 10 U/L (0-35); AST (SGOT) 17 U/L (14-36); Albumin 3.6 g/dl (3.5-5.0); Alkaline Phosphatase 81 U/L (38-126); Blood Urea Nitrogen 18 mg/dl (7-17); Calcium 9.5 mg/dl (8.4-10.2); Carbon Dioxide 26 mmol/L (22-30); Chloride 109 mmol/L (98-107); Estimated Creatinine Clearance 20 ml/min; Glucose 101 mg/dl (70-99); Lipase 65 U/L (23-300); Potassium 4.3 mmol/L (3.5-5.1); Sodium 140 mmol/L (135-145); Total Protein 6.1 g/dl (6.3-8.2); eGFR 34.15
[2025-04-05 09:54] LABS: Troponin I < 0.012 ng/ml
[2025-04-05 10:00] VITALS: BP 133/56
[2025-04-05] MEDS: PROTONIX IV 40 MG IV (10:12)
[2025-04-05] MEDS: CARAFATE SUSPENSION 1 GM PO (10:12)
[2025-04-05 12:03] LABS: Troponin I < 0.012 ng/ml
[2025-04-05 12:09] VITALS: BP 136/46
[2025-04-05] MEDS: XOPENEX 1.25 MG INHALANT SOLUTION INH (12:35)
[2025-04-05] MEDS: MAALOX 50 PO (12:35)
[2025-04-05 13:00] VITALS: BP 135/59
== END 2025-04-05 14:05 | disposition home or self-care (01) ==
LOC: EMR 08:54
PROVIDERS: EMERGENCY PHYSICIAN Emergency Medicine; FAMILY PHYSICIAN Internal Medicine
DX: R07.9 Chest pain, unspecified (principal); K21.9 Gastro-esophageal reflux disease without esophagitis; I13.0 Hypertensive heart and chronic kidney disease with heart failure and stage 1 through stage 4 chronic kidney disease, or unspecified chronic kidney disease; I50.9 Heart failure, unspecified; N18.32 Chronic kidney disease, stage 3b; J44.9 Chronic obstructive pulmonary disease, unspecified; E03.9 Hypothyroidism, unspecified; G89.29 Other chronic pain; I25.10 Atherosclerotic heart disease of native coronary artery without angina pectoris; Z85.118 Personal history of other malignant neoplasm of bronchus and lung; Z87.891 Personal history of nicotine dependence; Z99.81 Dependence on supplemental oxygen; Z95.5 Presence of coronary angioplasty implant and graft; Z90.2 Acquired absence of lung [part of]
CPT/HCPCS: 99285; 94640; 96374; 71046; 80053; 83690; 83880; 84484; 85025; 93005